=== PATIENT | female | born 1945 | race Caucasian/White ===

== ENCOUNTER 2022-09-17 09:16 | Outpatient (CLI) | payer MEDICARE, BC, SELFPAY ==
[2022-09-17 14:18] LABS: Chloride* 101 mmol/L (96-114); Potassium* 5.3 mmol/L (3.6-5.1); Sodium* 138 mmol/L (135-149)
[2022-09-17 14:20] LABS: Cholesterol* 171 mg/dL (90-199)
[2022-09-17 14:21] LABS: Blood Urea Nitrogen* 16 mg/dL (7-30); Carbon Dioxide* 27 mmol/L (20-32); Creatinine* 0.9 mg/dL (0.5-1.5); Estimated Glomerular Filt Rate 65 ml/min; Glucose* 84 mg/dL (60-115)
[2022-09-17 14:22] LABS: Calcium* 9.4 mg/dL (8.4-10.6); HDL Cholesterol* 44 mg/dL (>=50); LDL Cholesterol Calculated 96 mg/dL (<100); Triglycerides* 153 mg/dL (40-149)
== END 2022-09-17 09:17 | disposition home or self-care (01) ==
PROVIDERS: PCP Family Medicine; Visit Provider Family Medicine
DX: Z01.818 Encounter for other preprocedural examination (principal); E78.5 Hyperlipidemia, unspecified
CPT/HCPCS: 80048; 80061

== ENCOUNTER 2022-09-19 08:59 | Day surgery (SDC) | payer MEDICARE, BC, SELFPAY ==
--- NOTE | 2022-09-19 09:16 | SUR.PREOP ---
The eye drops brought by the patient (Ketorolac and Prednisolone) are examined and I have determined they are labeled by the patient's pharmacy for this patient as prescribed by the surgeon. The bottles are intact, recently obtained and appear to be correct.
--- NOTE | 2022-09-19 09:16 | SUR.PREOP ---
visualized patient's home covid test, results negative.
[2022-09-19] MEDS: KETOROLAC OPHTH 0.5% 1 DROP EYE-LEFT ×2 (09:17→09:21)
[2022-09-19] MEDS: TETRACAINE 0.5% OPHTH 1 DROP EYE-LEFT ×2 (09:18→09:22)
[2022-09-19] MEDS: SODIUM CHLORIDE 0.9 % (FLUSH) 10 ML SYRINGE IVF (09:25)
[2022-09-19 09:27] VITALS: BP 151/84; PULSE 79; RESP 18; TEMP 36.6; O2SAT 98; BMI 31.6
--- NOTE | 2022-09-19 11:06 | W.ANESCHARGE ---
Anesthesia Charges Start Date/Time Anesthesia Start Date: 09/19/22 Anesthesia Start Time: 10:50 Stop Date/Time Anesthesia Stop Date: 09/19/22 Anesthesia Stop Time: 11:33 Summary Emergency: No Extremes of Age: Over 70-CPT 28262
[2022-09-19] MEDS: TETRACAINE 0.5% OPHTH 2 DROP EYE-LEFT (11:12)
[2022-09-19] MEDS: BALANCED SALT IRRIG SOLN 15 ML EYE-LEFT (11:12)
[2022-09-19 11:30] VITALS: BP 132/82; PULSE 68; RESP 18; TEMP 36.4; O2SAT 97
--- NOTE | 2022-09-20 08:05 | W.PM.OPTPROC ---
Procedure Note Date of procedure: 09/19/22 Will [facility] bill your pro fee for this procedure?: Yes Procedure Description: SURGEON: Arianna Colindres MD PREOPERATIVE DIAGNOSIS: Nuclear sclerotic cataract, left eye. POSTOPERATIVE DIAGNOSIS: Nuclear sclerotic cataract, left eye. NAME OF OPERATION: Phacoemulsification of cataract with posterior chamber intraocular lens implantation in the left eye. ANESTHESIA: Topical. ESTIMATED BLOOD LOSS: Less than 2 cc. COMPLICATIONS: None. PATHOLOGY SPECIMEN: None. INDICATIONS: See consult note for details. The risks, benefits and alternatives of the procedure were explained to the patient, who elected to proceed and signed informed consent to do so. PROCEDURE: The patient was brought to the pre-holding area where the left eye was identified as the operative eye. I placed my initials above this eye. The patient received eye drops consisting of 0.5% tetracaine, 1% tropicamide, 10% phenylephrine, and 0.5% ketorolac. The patient was then brought to the operating room where the left eye was again identified as the operative eye. The eye was prepped with Betadine and draped in the usual sterile ophthalmic fashion. A #15 super-sharp blade was used to create a paracentesis site. 1% non-preserved intracameral lidocaine was injected into the anterior chamber. Endocoat was injected into the anterior chamber. A 2.4 mm keratome was used to create a three-plane self-sealing incision 1 mm anterior to the temporal limbus. A cystotome was used to create an anterior capsular leaflet. The Utrata forceps were used to extend this to form a continuous curvilinear capsulorrhexis. Hydrodissection was performed. The cataract was removed with phacoemulsification using the [id number]-[id number]-[id number] technique. The irrigation and aspiration tip was used to remove the remaining cortex. Healon was injected into the capsular bag. An TOM ZCB00 intraocular lens of 21.5 diopters was injected into the capsular bag. The irrigation and aspiration tip was used to remove the remaining viscoelastic. Balanced salt solution on a cannula was used to hydrate the wound, and the wound was found to be watertight. The pupil was noted to be round. DISPOSITION: The patient was taken to the recovery room and discharged to home in stable condition. The patient was instructed to call me or go to the emergency department with any sudden change, including dramatic loss of vision, severe pain in the eye or eyebrow region, nausea, or vomiting. The patient will follow up in the clinic tomorrow morning. Surgeon: Arianna Colindres MD
== END 2022-09-19 12:00 | disposition home or self-care (01) ==
PROVIDERS: PCP Family Medicine; Visit Provider Ophthalmology
PROC: (CPT 66984; principal; 2022-09-19 09:00)
DX: H25.12 Age-related nuclear cataract, left eye (principal)
CPT/HCPCS: 66984; 00142; 99100; A9270; J2250; J3010; V2632

== ENCOUNTER 2022-10-10 09:02 | Day surgery (SDC) | payer MEDICARE, BC, SELFPAY ==
[2022-10-10] MEDS: KETOROLAC OPHTH 0.5% 1 DROP EYE-RIGHT ×2 (09:05→09:10)
[2022-10-10] MEDS: TETRACAINE 0.5% OPHTH 1 DROP EYE-RIGHT ×2 (09:05→09:10)
[2022-10-10 09:17] VITALS: BP 159/89; PULSE 73; RESP 16; TEMP 36.3; O2SAT 97
[2022-10-10 09:19] VITALS: BMI 31.5
[2022-10-10] MEDS: SODIUM CHLORIDE 0.9 % (FLUSH) 10 ML SYRINGE IVF (09:30)
--- NOTE | 2022-10-10 09:36 | SUR.PREOP ---
HOME COVID ANTIGEN TEST NEGATIVE, DONE 10/09/22.
--- NOTE | 2022-10-10 10:16 | W.ANESCHARGE ---
Anesthesia Charges Start Date/Time Anesthesia Start Date: 10/10/22 Anesthesia Start Time: 10:15 Stop Date/Time Anesthesia Stop Date: 10/10/22 Anesthesia Stop Time: 10:50 Summary Emergency: No Extremes of Age: Over 68-CPT 50786
[2022-10-10] MEDS: TETRACAINE 0.5% OPHTH 2 DROP EYE-RIGHT (10:22)
--- NOTE | 2022-10-10 10:25 | W.ANESCHARGE ---
Anesthesia Charges Start Date/Time Anesthesia Start Date: 10/10/22 Anesthesia Start Time: 10:15 Stop Date/Time Anesthesia Stop Date: 10/10/22 Anesthesia Stop Time: 10:50 Summary Emergency: No Extremes of Age: Over 68-CPT 00420
[2022-10-10] MEDS: BALANCED SALT IRRIG SOLN 15 ML EYE-RIGHT (10:26)
[2022-10-10 10:48] VITALS: BP 172/89; PULSE 69; RESP 16; O2SAT 98
--- NOTE | 2022-10-10 13:32 | P.OPTPRC_ITS ---
Procedure Note Date of procedure: 10/10/22 Will [facility] bill your pro fee for this procedure?: Yes Procedure Description: SURGEON: Arianna Colindres MD PREOPERATIVE DIAGNOSIS: Nuclear sclerotic cataract, right eye. POSTOPERATIVE DIAGNOSIS: Nuclear sclerotic cataract, right eye. NAME OF OPERATION: Phacoemulsification of cataract with posterior chamber intraocular lens implantation in the right eye. ANESTHESIA: Topical. ESTIMATED BLOOD LOSS: Less than 2 cc. COMPLICATIONS: None. PATHOLOGY SPECIMEN: None. INDICATIONS: See consult note for details. The risks, benefits and alternatives of the procedure were explained to the patient, who elected to proceed and s igned informed consent to do so. PROCEDURE: The patient was brought to the pre-holding area where the right eye was identified as the operative eye. I placed my initials above this eye. The patient received eye drops consisting of 0.5% tetracaine, 1% tropicamide, 10% phenylephrine, and 0.5% ketorolac. The patient was then brought to the operating room where the right eye was again identified as the operative eye. The eye was prepped with Betadine and draped in the usual sterile ophthalmic fashion. A #15 super-sharp blade was used to create a paracentesis site. 1% non-preserved intracameral lidocaine was injected into the anterior chamber. Endocoat was injected into the anterior chamber. A 2.4 mm keratome was used to create a three-plane self-sealing incision 1 mm anterior to the temporal limbus. A cystotome was used to create an anterior capsular leaflet. The Utrata forceps were used to extend this to form a continuous curvilinear capsulorrhexis. Hydrodissection was performed. The cataract was removed with phacoemulsification using the [id number] technique. The irrigation and aspiration tip was used to remove the remaining cortex. Healon was injected into the capsular bag. An TOM ZCB00 intraocular lens of 21.0 diopters was injected into the capsular bag. The irrigation and aspiration tip was used to remove the remaining viscoelastic. Balanced salt solution on a cannula was used to hydrate the wound, and the wound was found to be watertight. The pupil was noted to be round. DISPOSITION: The patient was taken to the recovery room and discharged to home in stable condition. The patient was instructed to call me or go to the emergency department with any sudden change, including dramatic loss of vision, severe pain in the eye or eyebrow region, nausea, or vomiting. The patient will follow up in the clinic tomorrow morning. Surgeon: Arianna Colindres MD
== END 2022-10-10 11:25 | disposition home or self-care (01) ==
PROVIDERS: PCP Family Medicine; Visit Provider Ophthalmology
PROC: (CPT 66984; principal; 2022-10-10 09:00)
DX: H25.11 Age-related nuclear cataract, right eye (principal)
CPT/HCPCS: 66984; 00142; 99100; A9270; J2250; J3010; V2632

== ENCOUNTER 2023-09-27 08:41 | Outpatient (CLI) | payer MEDICARE, BC, SELFPAY | END 2023-09-27 08:42 | disposition home or self-care (01) | PROVIDERS: PCP Family Medicine; Visit Provider Family Medicine | DX: Z00.00 Encounter for general adult medical examination without abnormal findings (principal); I10 Essential (primary) hypertension; E78.5 Hyperlipidemia, unspecified; R13.10 Dysphagia, unspecified; Z13.29 Encounter for screening for other suspected endocrine disorder | CPT/HCPCS: 80061; 84439; 84443 ==

== ENCOUNTER 2023-10-15 08:45 | Outpatient (CLI) | payer MEDICARE, BC, SELFPAY | END 2023-10-15 08:46 | disposition home or self-care (01) | LOC: CT 08:46 | PROVIDERS: PCP Family Medicine; Visit Provider Orthopaedic Surgery Sports Medicine | DX: M19.012 Primary osteoarthritis, left shoulder (principal); M75.102 Unspecified rotator cuff tear or rupture of left shoulder, not specified as traumatic; M12.812 Other specific arthropathies, not elsewhere classified, left shoulder; Z01.818 Encounter for other preprocedural examination | CPT/HCPCS: 73200 ==

== ENCOUNTER 2023-11-18 08:29 | Day surgery (SDC) | payer MEDICARE, BC, SELFPAY ==
[2023-11-18] VITALS (23 sets, daily range): BP systolic 119–149; BP diastolic 64–98; PULSE 60–78; RESP 13–20; TEMP 36.2–36.6; O2SAT 92–97; BMI 33.0
[2023-11-18] MEDS: ACETAMINOPHEN 500 MG TABLET 1000 MG PO ×3 (07:45→20:05)
[2023-11-18] MEDS: SODIUM CHLORIDE 0.9 % (FLUSH) 10 ML SYRINGE IVF (09:15)
[2023-11-18] MEDS: LACTATED RINGERS 1000 ML 1,000 ML 100 ML IV ×2 (09:20→10:28)
[2023-11-18] MEDS: OXYCODONE (CR) 10 MG TAB.ER.12H PO (09:30)
[2023-11-18] MEDS: fentaNYL 100 MCG/2 ML inj IVP (09:32)
[2023-11-18] MEDS: MIDAZOLAM HCL 1 MG/ML inj IVP (09:32)
--- NOTE | 2023-11-18 09:42 | SUR.PREOP ---
TIME?OUT:?929, left shoulder PT/RN/MDA?VERIFICATION?OF?SURGICAL?SITE,?PROCEDURE,?AND?CONSENT OBTAINED?PRIOR?TO?INVASIVE?PROCEDURE.
--- NOTE | 2023-11-18 10:20 | CRLHL7_ITS ---
For Patients: As a result of the Cures Act, medical imaging exams and procedure reports are released immediately into your electronic medical record. You may view this report before your referring provider. If you have questions, please contact your health care provider. INDICATION: Left shoulder arthroplasty. Follow-up. TECHNIQUE: Two portable postoperative images of the left shoulder. FINDINGS: Left shoulder arthroplasty. The components are adequately aligned and well seated. Air within the soft tissues and joint space related to the surgery. IMPRESSION: Left total shoulder arthroplasty. The components are adequately aligned and well seated. Dictated by Guy Rosa MD @ 11/19/2023 10:37:06 AM (Electronically Signed)
[2023-11-18] MEDS: CEFAZOLIN 2 GM in 0.9 % SODIUM CHLORIDE Mini-bag 100 ML IVPB ×2 (10:28→16:39)
[2023-11-18] MEDS: TRANEXAMIC ACID 100 MG/ML INJ 1000 MG IV (10:28)
--- NOTE | 2023-11-18 12:03 | PM.ORPRC ---
Procedure Note Date of procedure: 11/18/23 Procedure: PREOPERATIVE DIAGNOSIS: 1. Left shoulder osteoarthrosis, primary, severe with poor rotator quality/integrity 2. Left long head of the biceps tendinopathy and tenosynovitis POSTOPERATIVE DIAGNOSIS: 1. Left shoulder osteoarthrosis,[ primary, severe with poor cuff tissue quality 2. Left long head of the biceps tendinopathy and tenosynovitis PROCEDURE: 1. Left reverse shoulder arthroplasty. 2. Left long head of biceps open tenodesis SURGEON: Kosta Cam MD. LANDSCAPING SPECIALIST: Wilfredo ASH - Of note, a skilled medical administrative assistant was critical for this case to aid in patient positioning, tissue retraction, limb manipulation/positioning, retraction for glenoid exposure, which was challenging, awareness and protection of critical structures, and closure. ANESTHESIA: General plus supraclavicular block EBL: 150 ml IMPLANTS: DJ0 surgical Altivate humeral stem size 8 small shell, short with P2 porous coating vitamin E neutral poly small socket insert RSP glenoid base plate P2 porous coating with 3 perimeter locking screws 32 neutral glenosphere with retaining screw COMPLICATIONS: None evident INDICATIONS: The patient is a pleasant 78-year-old female who has experienced severe left shoulder pain and difficulty with use. Workup included imaging which revealed severe osteoarthrosis along with concern for rotator cuff quality. Physical exam was consistent with associated pain. Given the deformity, the dysfunction, and the pain, and failure of nonoperative management, recommendation was made for surgery. DESCRIPTION OF PROCEDURE: Following a thorough discussion of risks, benefits, and alternatives, consent was obtained and the left shoulder was marked. The patient was brought to the operating room and placed supine on the operating table. Induction of anesthesia was undertaken. 2 g IV Ancef and 1 g tranexamic acid was administered within 1 hr of incision preoperatively. Appropriate time-out was performed identifying proper patient, site, and procedure. The operative extremity was prepped and draped in the appropriate sterile fashion using ChloraPrep after the patient was positioned in the lazy beach chair position with head in neutral alignment and all bony prominences well padded. A longitudinal incision was made for deltopectoral approach. Deltoid was retracted laterally. Cephalic vein was identified and retracted laterally as well. Vein was spared/protected throughout the case. The clavipectoral fascia was identified and divided longitudinally staying lateral to the conjoined tendon / coracoid. The conjoined tendon was protected with a blunt Hohmann. The long head of the biceps tendon was identified and the bicipital sheath released. The upper 1/4 of the pectoralis major was also released from its insertion. The long head of the biceps was tenodesed to the pectoralis major tendon. The remaining proximal tendon tissue was excised. The rotator cuff was inspected and found to have good integrity with the subscapularis but fair integrity with a supraspinatus], and a decision for a reverse shoulder arthroplasty was confirmed. The long head of biceps, of note, was significant flattened, thickened, with abundant tenosynovitis. A subscapularis cuff of tissue was left via tenotomy for later repair with the remaining subscapularis released in a subperiosteal fashion with the Bovie. This was tagged for later repair. The 3 sisters were cauterized. The upper subscapularis was released from the capsule with a curved Hogan scissors towards the glenoid. The inferior subscapularis was divided from the capsular tissue on its caudal surface with particular caution for the axillary nerve. This was palpated anterior to the subscapularis both prior to and near the finish of the case. Inferior humeral head osteophytes were excised with caution taken throughout the case with regards to the axillary nerve. The humerus was dislocated, and humeral head cut completed. Then a protector plate was applied. We turned our attention to the glenoid. The humerus was retracted posteriorly. The subscap was protected anteriorly and the labrum/long head biceps origin was excised circumferentially. The capsule was released along the anterior and inferior portions of the glenoid cautiously with a Lambert elevator being careful not to penetrate deep. The glenoid had appropriate exposure, and was prepared with the cannulated system with a target of approximately 5-10? of inferior tilt and neutral anteversion (patient had 17 ? of retroversion initially). [Utilizing the match Point 3D printed guide, the guide pin was placed. The 3D printed jig removed and after placing the guide pin, the tap was placed followed by the glenoid reaming. The real base plate was opened, and inserted, and excellent compression/purchase was achieved with the central screw. Peripheral screws were then drilled, measured, and placed. The glenosphere was then placed consistent with the preoperative plan utilizing the above noted glenosphere. After securing the glenosphere with the locking, torque limited screw, attention was turned back to the humerus. A canal finder was placed followed by various reamers by hand. The real humeral stem was then opened and inserted with excellent metaphyseal fit and stability. Trial poly was placed and the shoulder reduced. Excellent reduction and stability achieved with appropriate tension on the conjoined tendon. At this stage, trial implants were removed, and the real implants inserted and the shoulder reduced. A 3 minute Betadine soak was performed followed by a thorough irrigation with normal saline. Subscapularis was repaired with #1 PDS to the cuff of tissue on the lesser tuberosity. Excellent reapproximation of tissue achieved. Hemostasis was found to be appropriate. The deltopectoral interval was reapproximated with 0 Vicryl, subcutaneous and subcuticular closure was then performed with number 2-0 Vicryl and 4-0 Monocryl, respectively. A skilled medical administrative assistant was critical for this case to aid in patient positioning, tissue retraction, limb manipulation/positioning, retraction for glenoid exposure, which was challenging, awareness and protection of critical structures, and closure. PLAN: 1. Sling at all times for the operative upper extremity. 2. AROM of elbow, forearm, wrist, and digits as tolerated. 3. PT/OT consults for education and assistance. 4. Social consult for discharge planning. 5. 23 hr perioperative antibiotics. 6. Early ambulation, and SCDs for DVT prophylaxis. 7. Admit to the hospital for the above 8. Analgesics p.r.n.
--- NOTE | 2023-11-18 12:05 | W.PM.H&PU ---
History & Physical Update History & Physical Update H&P Reviewed and patient assessed: No changes noted
--- NOTE | 2023-11-18 12:28 | P.NB_ITS ---
Nerve Block Nerve Block Time Seen by Provider: 09:37 Date Seen: 11/18/23 Type of block requested by surgeon for post-operative analgesia: supraclavicular Side: left Time out performed: Yes Verification of patient name: Yes Verification of date of : Yes Site marking: site marked Name of person performing procedure: Coy Continuous monitoring Was continuous monitoring of O2 sat, B/P, mobile marketing manager, recorded every 15 minutes?: Yes Procedure Checklist: sterile prep, needles and gloves Ultrasound guided. Images saved: Yes Medications given in 5ml increments after negative aspiration: Ropivicaine %: 0.5 mL: 20 Needle gauge: 22 Decadron (mg): 10 Precedex (mcg): 25 Patient tolerated procedure well: Yes Block Charges Block Charge (with Pro Fee): Brachial Plexus Use of Ultrasound Machine for Block: Yes- US Guidance/pain block
--- NOTE | 2023-11-18 12:28 | W.ANESCHARGE ---
Anesthesia Charges Start Date/Time Anesthesia Start Date: 11/18/23 Anesthesia Start Time: 10:07 Stop Date/Time Anesthesia Stop Date: 11/18/23 Anesthesia Stop Time: 12:24 Summary Extremes of Age - Over 70 or under 1: MDA
--- NOTE | 2023-11-18 13:05 | W.ANESCHARGE ---
Anesthesia Charges Start Date/Time Anesthesia Start Date: 11/18/23 Anesthesia Start Time: 10:07 Stop Date/Time Anesthesia Stop Date: 11/18/23 Anesthesia Stop Time: 12:24
[2023-11-18] MEDS: LACTATED RINGERS 1000 ML 1,000 ML 75 ML IV (14:15)
[2023-11-18] MEDS: FLECAINIDE 100 MG PO (15:45)
--- NOTE | 2023-11-18 16:36 | P.IMCN_ITS ---
Date of Consult Patient: [facility] Patient Consult date: 11/18/23 Requesting Physician: Orthopedics Primary Care Provider: Andi Echevarria MD Consult Narrative Narrative: Jina Garcia is a 78 year old female seen for management of medical problems following left shoulder arthroplasty. Procedure performed by Dr. Cam today. No operative complications. Patient has hypertension and history of recurrent atrial fibrillation. Postoperatively she reports doing well. No concerns. She denies nausea, significant pain, dyspnea. Preoperatively she reports he was generally doing well with no recent illness and no perioperative concerns identified on preop physical. She took non of her routine medications this morning. She has held her aspirin and meloxicam for 10 days. Review of Systems Narrative: No recent health concerns, illness or injury. [facility] Medical History (Updated 11/18/23 @ 16:50 by Ankit Robertson MD) Stapleton-Walker grade 4 cystocele ?N81.10 - Cystocele, unspecified (ICD-10) Left rotator cuff tear arthropathy ?M75.102 - Unspecified rotator cuff tear or rupture of left shoulder, not specified as traumatic (ICD-10) ?M12.812 - Other specific arthropathies, not elsewhere classified, left shoulder (ICD-10) Osteoarthritis of right shoulder ?M19.011 - Primary osteoarthritis, right shoulder (ICD-10) Osteoarthritis of left shoulder ?M19.012 - Primary osteoarthritis, left shoulder (ICD-10) Degenerative disc disease, cervical ?M50.30 - Other cervical disc degeneration, unspecified cervical region (ICD- 10) Neuropathy ?G62.9 - Polyneuropathy, unspecified (ICD-10) Hypertension ?I10 - Essential (primary) hypertension (ICD-10) Hyperlipidemia (08/15/09) ?E78.5 - Hyperlipidemia, unspecified (ICD-10) History of atrial fibrillation ?Z86.79 - Personal history of other diseases of the circulatory system (ICD- 10) Hearing loss ?H91.90 - Unspecified hearing loss, unspecified ear (ICD-10) History of thyroiditis (08/15/09) ?Z86.39 - Personal history of other endocrine, nutritional and metabolic disease (ICD-10) Surgical History (Updated 11/18/23 @ 16:50 by Ankit Robertson MD) History of arthroplasty of left shoulder ?Z96.612 - Presence of left artificial shoulder joint (ICD-10) History of bilateral cataract extraction (~09/2022) ?Z98.41 - Cataract extraction status, right eye (ICD-10) ?Z98.42 - Cataract extraction status, left eye (ICD-10) History of tonsillectomy and adenoidectomy (~1952) ?Z90.89 - Acquired absence of other organs (ICD-10) History of radiofrequency ablation (RFA) procedure for cardiac arrhythmia (08/15/09) ?Z98.890 - Other specified postprocedural states (ICD-10) History of hysterectomy (~1972) ?Z90.710 - Acquired absence of both cervix and uterus (ICD-10) History of cholecystectomy (~1995) ?Z90.49 - Acquired absence of other specified parts of digestive tract (ICD- 10) Family History Unknown Diabetes Social History Narrative: Cis-gender, heterosexual woman Relationship status: . Spouse/Partner: Earl Education: Some college Occupation: Retired Tobacco: Never smoker E-cigarettes: No Alcohol: No Illicit/recreational drugs: No Safety concerns at home or work: No Dietary restriction(s): None Exercise: No. What is your current living situation?: I presently have a place to live Problems where you live: no known problems In the past 12 months, utilities in danger of being shut off: no In past 12 months, lack of transportation kept you from medical appts, meetings, work, or getting things needed for daily living: no In the past 12 mos, have been you worried that your food would run out before you had money to buy more?: never true In the past 12 mos, the food you bought just didn't last and you didn't have money to buy more?: never true Highest level of school completed/degree received: decline to answer Smoking Status: Never smoker Do you use any of these nicotine containing products: None How often do you have a drink containing alcohol: never AUDIT-C Alcohol total score: 0 Non-prescribed substance use: denies use Caffeine: Yes (TEA) How often does anyone, including family, friends and others, physically hurt you : never How often does anyone, including family, friends and others, insult or talk down to you: never How often does anyone, including family, friends and others, threaten you with harm: never How often does anyone, including family, friends and others, scream or curse at you: never Little interest or pleasure in doing things: not at all Feeling down, depressed, or hopeless: not at all Are you using contraception or practicing any form of control: No Meds Home Medications and Allergies Home Medications Medication Instructions Recorded Confirmed Type aspirin 81 mg tablet,delayed 81 mg PO DAILY 09/17/22 11/18/23 History release flecainide 100 mg tablet 50 - 100 mg PO BID 09/17/22 11/18/23 History losartan 50 mg-hydrochlorothiazide 1 tab PO DAILY 11/18/23 11/18/23 History 12.5 mg tablet meloxicam 15 mg tablet 15 mg PO DAILY 11/18/23 11/18/23 History simvastatin 40 mg tablet 40 mg PO HS 11/18/23 11/18/23 History Allergies Allergy/AdvReac Type Severity Reaction Status Date / Time No Known Allergies Allergy Unknown Unknown Verified 11/06/23 10:26 Exam Narrative: Exam Narrative: She is alert and appears in no distress. Oropharynx is normal. Neck is supple without mass or adenopathy. Respirations are clear and symmetric. Cardiovascular: S1, S2, regular rate and rhythm. Abdomen is soft without tenderness or mass. Extremities without edema. Left upper extremity has diminished but intact sensation good pulses good capillary refill and some movement in the fingers of her left hand. Other extremities have intact pulses sensation and motion. Const: Vital Signs, click to edit/add: Vital Signs - 24 hr 11/18/23 08:52 11/18/23 09:30 11/18/23 09:40 Temperature 97.1 F L Pulse Rate 77 70 65 Pulse Rate [Left P ulse Oximeter] Respiratory Rate 20 20 16 Blood Pressure 149/98 H 149/78 H 124/69 Blood Pressure [Ri ght Arm] Pulse Oximetry 96 95 96 Oxygen Delivery Me thod Room Air Nasal Cannula Room Air Oxygen Flow Rate 3 11/18/23 12:25 11/18/23 12:30 11/18/23 12:35 Temperature 97.2 F L Pulse Rate 66 65 63 Pulse Rate [Left P ulse Oximeter] Respiratory Rate 16 16 16 Blood Pressure 127/72 127/73 121/70 Blood Pressure [Ri ght Arm] Pulse Oximetry 92 93 94 Oxygen Delivery Me thod Room Air Room Air Room Air Oxygen Flow Rate 11/18/23 12:40 11/18/23 12:45 11/18/23 12:50 Temperature 97.8 F Pulse Rate 61 62 60 Pulse Rate [Left P ulse Oximeter] Respiratory Rate 16 16 16 Blood Pressure 123/69 119/69 119/71 Blood Pressure [Ri ght Arm] Pulse Oximetry 96 97 96 Oxygen Delivery Me thod Room Air Room Air Room Air Oxygen Flow Rate 11/18/23 12:55 11/18/23 13:05 11/18/23 13:06 Temperature 97.7 F 97.7 F Pulse Rate 61 61 Pulse Rate [Left P ulse Oximeter] 61 Respiratory Rate 16 13 13 Blood Pressure 121/70 Blood Pressure [Ri ght Arm] 132/73 132/73 Pulse Oximetry 95 94 Oxygen Delivery Me thod Room Air Room Air Room Air Oxygen Flow Rate 11/18/23 13:15 11/18/23 13:30 11/18/23 13:45 Temperature 97.5 F L 97.5 F L 97.3 F L Pulse Rate Pulse Rate [Left P ulse Oximeter] 63 63 63 Respiratory Rate 13 14 16 Blood Pressure Blood Pressure [Ri ght Arm] 129/75 124/70 121/66 Pulse Oximetry 96 96 97 Oxygen Delivery Me thod Room Air Room Air Room Air Oxygen Flow Rate 11/18/23 14:00 11/18/23 14:30 11/18/23 15:00 Temperature 97.5 F L Pulse Rate Pulse Rate [Left P ulse Oximeter] 65 69 70 Respiratory Rate 16 16 16 Blood Pressure Blood Pressure [Ri ght Arm] 144/81 H 137/64 127/82 Pulse Oximetry 95 96 96 Oxygen Delivery Me thod Room Air Room Air Oxygen Flow Rate 11/18/23 15:00 Temperature Pulse Rate Pulse Rate [Left P ulse Oximeter] 73 Respiratory Rate 16 Blood Pressure Blood Pressure [Ri ght Arm] Pulse Oximetry Oxygen Delivery Me thod Oxygen Flow Rate Documenting provider has reviewed patient's vital signs: yes Assessment and Plan Assessment and plan (1) History of arthroplasty of left shoulder: Problem comment: No immediate postoperative complications. Routine pain management and therapy Status: Acute (2) History of atrial fibrillation: Problem comment: s/p Ablation attempts 2005, 2009, 2017, now on flecainide to control rhythm. Resume flecainide Status: Acute (3) Hypertension: Problem comment: Resume blood pressure medicines Status: Acute Plan Routine postoperative care. Resume medications for rhythm control and blood pressure control. Total time spent is 40 minutes
[2023-11-18] MEDS: 0.9 % SODIUM CHLORIDE 500 ML IV (18:09)
--- NOTE | 2023-11-18 18:48 | PC.NURSE ---
End of shift 8312-2299: Pt A&O x4, VSS and afebrile this afternoon. Ambulates in room SBA. Left arm sling in place, anterior surgical dressing is C/D/I. CMS in LUE remarkable for numbness in thumb and index finger, radial pulse present, skin warm & pink. Pt denies having any pain yet. PIV in right wrist infusing LR @ 75 mL/hr and currently receiving 500 mL NaCl bolus d/t oliguria. Pt attempted to void once with no success. Only c/o is having an air bubble in her throat, encouraged IS use- reading at 1000 on inspiration with good tolerance. Pt has bilateral LE neuropathy baseline, TEDs in place. Tolerating PO intake with no nausea. Denies dizziness with ambulation.
[2023-11-18] MEDS: SENNOSIDES 1 TAB TABLET 2 TAB PO (22:11)
[2023-11-18] MEDS: SIMVASTATIN 40 MG TABLET PO (22:11)
[2023-11-19] MEDS: CEFAZOLIN 2 GM in 0.9 % SODIUM CHLORIDE Mini-bag 100 ML IVPB ×2 (01:06→07:40)
[2023-11-19] MEDS: ACETAMINOPHEN 500 MG TABLET 1000 MG PO ×2 (01:06→08:05)
[2023-11-19 02:17] VITALS: BP 136/72; PULSE 73; RESP 18; TEMP 36.7; O2SAT 95
--- NOTE | 2023-11-19 05:03 | PC.NURSE ---
[id number]: Patient pleasant and cooperative. CMS intact. Dressing to L. shoulder C/D/I. Cryo cuff and sling to L. shoulder. SBA. Denies pain. Denies N/V. Eating and voiding.
[2023-11-19 06:30] LABS: Hematocrit 32.2 % (33.0-51.0); Hemoglobin* 10.9 gm/dL (12.0-16.0); Mean Corpuscular HGB Conc 34 gm/dL (32-36); Mean Corpuscular Hemoglobin 29 pg (26-34); Mean Corpuscular Volume 85 fL (80-100); Platelet Count* 335 K/uL (140-440); Red Blood Count 3.77 m/uL (4.00-5.20); White Blood Count* 17.05 K/uL (4.50-11.00)
[2023-11-19 06:31] LABS: Slide Review Reflex No
[2023-11-19 06:43] LABS: Potassium* 3.7 mmol/L (3.6-5.1); Sodium* 131 mmol/L (135-149)
[2023-11-19 06:46] LABS: Blood Urea Nitrogen* 16 mg/dL (7-30); Creatinine* 0.7 mg/dL (0.5-1.5); Est. Creatinine Clearance* 33.86; Estimated Glomerular Filt Rate 87 ml/min
[2023-11-19 07:00] VITALS: BP 145/78; PULSE 76; RESP 16; TEMP 36.6; O2SAT 96
[2023-11-19] MEDS: ASPIRIN 81 MG TABLET EC PO (07:40)
[2023-11-19] MEDS: hydroCHLOROthiazide 12.5 MG CAPSULE PO (07:40)
[2023-11-19] MEDS: LOSARTAN POTASSIUM 50 MG TABLET PO (07:40)
[2023-11-19] MEDS: FLECAINIDE 100 MG PO (07:41)
--- NOTE | 2023-11-19 08:35 | PM.ORPN ---
Subjective Subjective Date Seen: 11/19/23 Principal diagnosis: Status postop day 1 left reverse total shoulder arthroplasty Interval history: Patient reports doing well. No acute events over night. Complains of left thumb and index sluggish to wake up compared to the other 3 digits, and slightly warm. No pain at this time ice; supraclavicular nerve block still effective. Applying ice to the shoulder. DVT prophylaxis: Bilateral knee high Hong stockings, SCDs, walking. Denies fevers, chills, aches, N/V, CP, SOB/MURO, or lightheadedness. Reports no passing flatus. Ortho Exam Narrative Exam Narrative: -Patient appears comfortable in recliner; no apparent acute distress -Alert and oriented times 3 -Operative shoulder swollen; soft, supple tissues; no obvious erythema. Ecchymosis minimal. Warmth appropriate -Surgical dressing clean, dry, intact; no obvious drainage, no erythematous streaking peripheral to the bandage -Bilateral calves soft and supple; no significant swelling, edema, tenderness, erythema, discoloration, warmth, or palpable cords -2+ radial pulse, intact dermatomes and myotomes distally (5/5 strength); intact x-ray nerve sensation. Weak shoulder abduction strength Const Vital Signs, click to edit/add: Vital Signs - 24 hr 11/18/23 08:52 11/18/23 09:30 11/18/23 09:40 Temperature 97.1 F L Pulse Rate 77 70 65 Pulse Rate [Left Pulse Oximeter] Respiratory Rate 20 20 16 Blood Pressure 149/98 H 149/78 H 124/69 Blood Pressure [Right Arm] Pulse Oximetry 96 95 96 Oxygen Delivery Method Room Air Nasal Cannula Room Air Oxygen Flow Rate 3 11/18/23 12:25 11/18/23 12:30 11/18/23 12:35 Temperature 97.2 F L Pulse Rate 66 65 63 Pulse Rate [Left Pulse Oximeter] Respiratory Rate 16 16 16 Blood Pressure 127/72 127/73 121/70 Blood Pressure [Right Arm] Pulse Oximetry 92 93 94 Oxygen Delivery Method Room Air Room Air Room Air Oxygen Flow Rate 11/18/23 12:40 11/18/23 12:45 11/18/23 12:50 Temperature 97.8 F Pulse Rate 61 62 60 Pulse Rate [Left Pulse Oximeter] Respiratory Rate 16 16 16 Blood Pressure 123/69 119/69 119/71 Blood Pressure [Right Arm] Pulse Oximetry 96 97 96 Oxygen Delivery Method Room Air Room Air Room Air Oxygen Flow Rate 11/18/23 12:55 11/18/23 13:05 11/18/23 13:06 Temperature 97.7 F 97.7 F Pulse Rate 61 61 Pulse Rate [Left Pulse Oximeter] 61 Respiratory Rate 16 13 13 Blood Pressure 121/70 Blood Pressure [Right Arm] 132/73 132/73 Pulse Oximetry 95 94 Oxygen Delivery Method Room Air Room Air Room Air Oxygen Flow Rate 11/18/23 13:15 11/18/23 13:30 11/18/23 13:45 Temperature 97.5 F L 97.5 F L 97.3 F L Pulse Rate Pulse Rate [Left Pulse Oximeter] 63 63 63 Respiratory Rate 13 14 16 Blood Pressure Blood Pressure [Right Arm] 129/75 124/70 121/66 Pulse Oximetry 96 96 97 Oxygen Delivery Method Room Air Room Air Room Air Oxygen Flow Rate 11/18/23 14:00 11/18/23 14:30 11/18/23 15:00 Temperature 97.5 F L Pulse Rate Pulse Rate [Left Pulse Oximeter] 65 69 70 Respiratory Rate 16 16 16 Blood Pressure Blood Pressure [Right Arm] 144/81 H 137/64 127/82 Pulse Oximetry 95 96 96 Oxygen Delivery Method Room Air Room Air Oxygen Flow Rate 11/18/23 15:00 11/18/23 16:00 11/18/23 17:00 Temperature 97.6 F 97.4 F L Pulse Rate Pulse Rate [Left Pulse Oximeter] 73 73 75 Respiratory Rate 16 16 16 Blood Pressure Blood Pressure [Right Arm] 123/70 129/74 Pulse Oximetry 96 95 Oxygen Delivery Method Room Air Room Air Oxygen Flow Rate 11/18/23 18:00 11/18/23 20:15 11/18/23 23:09 Temperature 97.3 F L 97.8 F 97.5 F L Pulse Rate Pulse Rate [Left Pulse Oximeter] 75 78 78 Respiratory Rate 16 18 18 Blood Pressure Blood Pressure [Right Arm] 120/68 120/68 138/78 Pulse Oximetry 95 96 96 Oxygen Delivery Method Room Air Room Air Room Air Oxygen Flow Rate 11/19/23 02:17 Temperature 98.1 F Pulse Rate Pulse Rate [Left Pulse Oximeter] 73 Respiratory Rate 18 Blood Pressure Blood Pressure [Right Arm] 136/72 Pulse Oximetry 95 Oxygen Delivery Method Room Air Oxygen Flow Rate Assessment and Plan Assessment and plan (1) History of arthroplasty of left shoulder: Problem details: Status postop day 1 left reverse total shoulder arthroplasty and open long head biceps tenodesis (11/18/23) Status: Acute (2) History of atrial fibrillation: Problem details: s/p Ablation attempts 2004, 2008, 2017, now on flecainide to control rhythm. Resume flecainide Status: Acute (3) Hypertension: Problem details: Resume blood pressure medicines Status: Acute Plan - Complete 23 hour perioperative antibiotics. - PT/OT consult for education and assistance. - Social work consult for discharge planning - Prescribed analgesics as needed - DVT prophylaxis: Bilateral knee high Hong Hose stockings and SCDs - Anticipation is for discharge to home with spouse 11/19/2023 if the patient remains medically stable, pain is controlled, and they are safe with mobilization.
--- NOTE | 2023-11-19 11:27 | PC.NURSE ---
Discharge - Pt alert, oriented, cooperative. Tolerating RA, regular diet, regular fluids. Pt denies pain, SOB, dizziness. Standby assistance to bathroom, ambulating. IV removed with catheter intact. Discharge education provided, paperwork signed. Pt discharged to home with spouse at approximately 1115.
== END 2023-11-19 11:15 | disposition home or self-care (01) ==
LOC: OR 08:30 → MEDSURG 08:33
PROVIDERS: PCP Family Medicine; Visit Provider Orthopaedic Surgery Sports Medicine
PROC: 0RRJ0JZ Replacement of Right Shoulder Joint with Synthetic Substitute, Open Approach (ICD-10-PCS; CPT 23472; principal; 2023-11-18 10:00)
DX: M19.012 Primary osteoarthritis, left shoulder (principal); M75.22 Bicipital tendinitis, left shoulder; G89.18 Other acute postprocedural pain; I10 Essential (primary) hypertension; I48.91 Unspecified atrial fibrillation
CPT/HCPCS: 23472; 23430; 01638; 36415; 64415; 73030; 76942; 82565; 84132; 84295; 84520; 85027; 97161; 97165; 99100; A9270; C1713; C1776; J0330; J0690; J1100; J2250; J2405; J2704; J2710; J2795; J3010; J7030; J7120

== ENCOUNTER 2024-01-22 13:00 | Outpatient (RCR) | payer MEDICARE, BC, SELFPAY ==
--- NOTE | 2023-12-02 10:26 | PT.OPEX ---
PT [facility] Eval PT [facility] Outpatient Eval Start: 12/02/23 08:57 Freq: Status: Active Protocol: Document 12/02/23 08:57 JESSICA (Rec: 12/02/23 10:20 JESSICA [id number]) E-signed By Betty Blanco PT Physical Therapy Outpatient Evaluation Insurance Information Recert Due Date 02/29/24 Insurance Name Medicare B Medical Diagnosis LEFT SHOULDER OA M19.012 S/P LEFT TSA (11/18/23) Treating Diagnosis LEFT SHOULDER PAIN M25.512 WEAKNESS R53.1 Referring MD ODELL Subjective Subjective PATIENT REPORTS VIRTUALLY NO PAIN SINCE HER SHOULDER AND HAS TAKEN, AT MOST, TYLENOL. SHE REPORTS NO SIGNIFICANT PAIN IN HER LEFT SHOULDER UNTIL ROUGHL[facility] FEBRUARY OF LAST YEAR. SHE STATES,I THOUGHT MY RIGHT SHOULDER WAS WORSE BUT THEY ARE BOTH BONE ON BONE AND MY LEFT SEEMED TO FLARE UP WHILE MY RIGHT CALMED DOWN. SHE HAS BEEN PERFORMING HER PENDULUMS INSTRUCTED AND PROPPING HER ARM UP WHEN SEATED TO AVOID SHOULDER EXT. 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 Preferred Name CARMINA Precautions Treatment Precautions/Contraindications 12/02/23: NO WB, NO LIFTING, NO USE OF LUE, NO REACHING BEHIND BACK Weight Bearing Status Non-Weight Bearing Therapy Limitations/Systems Review Hearing Objective Other/Pertinent Objective CERVICAL ROM: WFL LEFT SHOULDER PROM: S'FLEX 100 S'ABD 86 S'ER 15 AT 45 DEGREES ABD/ SCAPTION OBSERVATION: INCISION IS PRISTINE, ABSENT OF S/S OF INFECTION, MIN ECCHYMOSIS JOINT PALPATION/MOBILITY: MIN TENDERNESS TO TOUCH ABOUT THE INCISION, MOD JOINT HYPOMOBILITY TX: PENDULUM: FLEX/EXT, ABD/ADD, [place] L/R X 20 EA CERVICAL STRETCHING: ROTATION, FLEX 3 X 10 SEC CHIN TUCK 20 X 5 SEC GENTLE SCAP SQUEZZE 20 X 5 TABLE SLIDE INTO FLEX 10 X 5 SEC Assessment Assessment/Impression PATIENT IS AN [address] ODELL S/P LEFT SHOULDER rTSA 11/18/23 TO EVAL AND TX; PMHX INCLUDES BUT NOT LIMITED TO R/L SHOULDER OA, CERVICAL DDD, NEUROPATHY, HLD, HTN, AFIB WITH H/O ABLATION 2004, 2008, 2017, CHILKAT W/ HEARING AIDES. PATIENT LIVES WITH HER SPOUSE WHO ASSISTS HER NEEDED. SHE HAS BEEN COMPLIANT WITH HER PRE OPERATIVE INSTRUCTIONS/ EXERCISES AND ARRIVES WITH HER SLING DONNED APPROPRIATELY. WE DISCUSSED HER RESTRICTION OF NO WB THROUGH SURGICAL ARM, NO LIFTING, REACHING BEHIND BACK, OR USE OF LEFT UE. SHE HAS BEEN USING TYLENOL INTERMITTENTLY WITH MIN DISCOMFORT SINCE HER SURGERY. TODAY WE REVIEWED AND PERFORMED HER PENDULUM ADDING CERVICAL STRETCHING AND TABLE SLIDES TO HER PROGRAM AND PROVIDING A HANDOUT. SHE IS APPROPRIATE FOR SKILLED PHYSICAL THERAPY TO ADDRESS SYMPTOM MGMT, PROGRESS PROM/ AROM PER PROTOCOL WITH RTC/ SCAP STRENGTHENING AND PROPRIOCEPTIVE THER EX PER PROTOCOL. HER INCISION IS PRISTINE WITH MIN ECCHYMOSIS AND MIN TENDERNESS NOTED. SHE WILL F/U WITH ORTHO ON 12/31/23 . PATIENT VERBALIZED UNDERSTANDING TO ALL SKILLED INSTRUCTION AND IN AGREEMENT WITH POC AND FREQ. Primary Functional Limitations USE OF LUE REACHING LIFTING WB ROM STRENGTH ADL'S IADL'S Plan of Care Rehabilitation Potential Good Physical Therapy Goals STG IN 4-6 WEEKS: 1. PATIENT WILL DEMONSTRATE GOOD MGMT OF HIS PAIN AND EDEMA WITH REPORTED PAIN </3/ 10 DURING HIS HOME PROGRAM AND WITH THE PROGRESSION OF HIS PHYSICAL THERAPY. 2. PATIENT WILL RETURN TO INDEPENDENCE WITH ADL'S, RETURN TO DRIVING, AND MAINTAIN HIS PRECAUTIONS/ RESTRICTIONS 3. PATIENT WILL DEMONSTRATE PROM TO WFL TO PREPARE FOR RETURN TO FUNCTIONAL USE OF RIGHT UE LTG WITHIN 10-12WEEKS: 1. PATIENT WILL DEMONSTRATE AROM OF RIGHT SHOULDER TO WFL TO RETURN TO FULL FUNCTIONAL FOR ADL'S, IADL'S AND PEER CENTERED ACTIVITIES. 2. PATIENT WILL DEMONSTRATE FUNCTIONAL STRENGTH TO RETURN TO REACHING OVERHEAD, ANTERIORLY AND OUT TO SIDE NEEDED DURING PATIENT CENTERED ACTIVITIES. 3. PATIENT WILL DEMONSTRATE INDEPENDENCE WITH HIS HEP TO PROGRESS TWD THE ABOVE MENTIONED GOALS, CONTINUED MGMT OF SYMPTOMS, AND ONGOING IMPROVEMENT WITH ROM, STRENGTH AND FUNCTION FOR A FULL RETURN TO ALL ACTIVITIES Coordination/Communication With Referral Source Treatment Plan/Direct Interventions Ice/Cold/Vasopneumatic,Joint Mobilization,Manual Therapy, Neuromuscular Re-ed,Self-Care/ Home Management,Therapeutic Activities,Therapeutic Exercises Frequency/Duration 2X/WEEK FO 12 WEEKS Patient Will Be Discharged From Therapy Completion of LTG(s), Independently Progressing Evaluation Billing Untimed Code Treatment Minutes 15 PT Eval No Charge No Complexity Moderate Certification Information Initial Certification Date 12/02/23 Ending Certification Date 02/29/24 Provider Signature Shows Agreement With POC & Medical Necessity Physician Signature & Date Requested Please Sign/Date Here Physician Comment/Change : Physician NPI Number #
== END 2024-02-27 16:54 | disposition home or self-care (01) ==
PROVIDERS: PCP Family Medicine; Visit Provider Orthopaedic Surgery Sports Medicine
DX: M75.102 Unspecified rotator cuff tear or rupture of left shoulder, not specified as traumatic (principal); M19.012 Primary osteoarthritis, left shoulder; M12.812 Other specific arthropathies, not elsewhere classified, left shoulder; Z96.612 Presence of left artificial shoulder joint; M25.512 Pain in left shoulder; R53.1 Weakness; Z98.890 Other specified postprocedural states; Z51.89 Encounter for other specified aftercare
CPT/HCPCS: 97110; 97140; 97162; 97165; 97535

== ENCOUNTER 2024-01-24 12:26 | Emergency (ER) | payer MEDICARE, BC, SELFPAY ==
[2024-01-24 12:42] VITALS: BP 169/96; PULSE 72; RESP 18; TEMP 37; O2SAT 99; BMI 32.7
--- NOTE | 2024-01-24 15:04 | XR_ITS ---
Patient: CARMINA GREENE Facility:?[facility] Patient ID:?[id number] Site Patient ID:?[id number]. Site :?[id number] Study:?XRay-Shoulder Left 3V-01/24/2024 3:17:49 PM Ordering Physician:LOUIS Final Report: Indication: Postop pain Comparison: Three views left shoulder December 31, 2023 Technique: AP internal, external rotation, and scapular-Y views of the left shoulder were obtained Findings: There is no displaced fracture or dislocation. Stable postoperative change status post reverse shoulder arthroplasty without obvious hardware malpositioning. There is resolution of postoperative soft tissue changes. Impression: Stable postoperative change of the left shoulder status post arthroplasty without obvious fracture or hardware failure Dictated by Dk Shea MD @ 01/24/2024 4:02:04 PM Signed by:?Dk Shea MD @01/24/2024 4:02:04 PM (Electronic Signature)
--- NOTE | 2024-01-24 15:42 | ED_ITS ---
HPI - General Adult General Chief complaint: Shoulder Injury/Pain Stated complaint: shoulder pain post surgery Time Seen by Provider: 01/24/24 14:56 Source: patient Mode of arrival: ambulatory Limitations: no limitations History of Present Illness HPI narrative: Jina is a guerda 78-year-old female coming in today complaining of left shoulder pain. She states that it has been bothering her for about a week, toda y she was pulling her pants up after using the bathroom when she heard and felt a crack and felt immediate pain. She states that now she can not move her shoulder without significant discomfort. Patient did have a shoulder arthroplasty on that side in November, had a unremarkable recovery. She denies pain in any other joint or any recent injury. Pain is located on the top of the shoulder. Related Data Home Medications Medication Instructions Recorded Confirmed aspirin 81 mg tablet,delayed 81 mg PO DAILY 09/17/22 01/24/24 release flecainide 100 mg tablet 50 - 100 mg PO BID 09/17/22 01/24/24 losartan 50 mg-hydrochlorothiazide 1 tab PO DAILY 11/18/23 01/24/24 12.5 mg tablet meloxicam 15 mg tablet 15 mg PO DAILY 11/18/23 01/24/24 simvastatin 40 mg tablet 40 mg PO HS 11/18/23 01/24/24 Allergies Allergy/AdvReac Type Severity Reaction Status Date / Time No Known Allergies Allergy Unknown Unknown Verified 01/24/24 12:48 Review of Systems Status of ROS: Reports: 6 or more systems reviewed and unremarkable except as noted in History and below [facility] Medical History [place] grade 4 cystocele ?N81.10 - Cystocele, unspecified (ICD-10) Left rotator cuff tear arthropathy ?M75.102 - Unspecified rotator cuff tear or rupture of left shoulder, not specified as traumatic (ICD-10) ?M12.812 - Other specific arthropathies, not elsewhere classified, left shoulder (ICD-10) Osteoarthritis of right shoulder ?M19.011 - Primary osteoarthritis, right shoulder (ICD-10) Osteoarthritis of left shoulder ?M19.012 - Primary osteoarthritis, left shoulder (ICD-10) Degenerative disc disease, cervical ?M50.30 - Other cervical disc degeneration, unspecified cervical region (ICD- 10) Neuropathy ?G62.9 - Polyneuropathy, unspecified (ICD-10) Hypertension ?I10 - Essential (primary) hypertension (ICD-10) Hyperlipidemia (08/15/09) ?E78.5 - Hyperlipidemia, unspecified (ICD-10) History of atrial fibrillation ?Z86.79 - Personal history of other diseases of the circulatory system (ICD- 10) Hearing loss ?H91.90 - Unspecified hearing loss, unspecified ear (ICD-10) History of thyroiditis (08/15/09) ?Z86.39 - Personal history of other endocrine, nutritional and metabolic disease (ICD-10) Surgical History 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) ?Z96.612 - Presence of left artificial shoulder joint (ICD-10) History of bilateral cataract extraction (~09/2022) ?Z98.41 - Cataract extraction status, right eye (ICD-10) ?Z98.42 - Cataract extraction status, left eye (ICD-10) History of tonsillectomy and adenoidectomy (~1952) ?Z90.89 - Acquired absence of other organs (ICD-10) History of radiofrequency ablation (RFA) procedure for cardiac arrhythmia (08/15/09) ?Z98.890 - Other specified postprocedural states (ICD-10) History of hysterectomy (~1972) ?Z90.710 - Acquired absence of both cervix and uterus (ICD-10) History of cholecystectomy (~1995) ?Z90.49 - Acquired absence of other specified parts of digestive tract (ICD- 10) Family History Unknown Diabetes Social History Narrative: Cis-gender, heterosexual woman Relationship status: . Spouse/Partner: Earl Education: Some college Occupation: Retired Tobacco: Never smoker E-cigarettes: No Alcohol: No Illicit/recreational drugs: No Safety concerns at home or work: No Dietary restriction(s): None Exercise: No. What is your current living situation?: I presently have a place to live Problems where you live: no known problems In the past 12 months, utilities in danger of being shut off: no In past 12 months, lack of transportation kept you from medical appts, meetings, work, or getting things needed for daily living: no In the past 12 mos, have been you worried that your food would run out before you had money to buy more?: never true In the past 12 mos, the food you bought just didn't last and you didn't have money to buy more?: never true Highest level of school completed/degree received: decline to answer Smoking Status: Never smoker Do you use any of these nicotine containing products: None How often do you have a drink containing alcohol: never AUDIT-C Alcohol total score: 0 Non-prescribed substance use: denies use Caffeine: Yes (TEA) How often does anyone, including family, friends and others, physically hurt you : never How often does anyone, including family, friends and others, insult or talk down to you: never How often does anyone, including family, friends and others, threaten you with harm: never How often does anyone, including family, friends and others, scream or curse at you: never Little interest or pleasure in doing things: not at all Feeling down, depressed, or hopeless: not at all Are you using contraception or practicing any form of control: No Exam Narrative: Exam Narrative: Well-nourished well-developed patient in no acute distress. Alert and oriented. Answers questions appropriately. Mood and affect are appropriate. Thoughts are goal oriented and rational. No tangential or magical thinking noted. Patient speaks in full sentences without needing to catch her breath. Hold her arm bent at the elbow and against the front of the body. HEENT: Normocephalic atraumatic. Pupils are equally round reactive to light. Extraocular muscles are intact. Conjunctivae are moist without any icterus noted. Moist mucous membranes. Extremities: Patient has normal appearing shoulder. Normal contour. When she straightens out her arm she has an acute sharp pain on the top of the shoulder which causes her significant discomfort and she has to adduct her arm back into the body. On palpation of the shoulder she only has discomfort directly over the acromion. Const: Vital Signs, click to edit/add: Vital Signs - 24 hr 01/24/24 12:42 Temperature 98.6 F Pulse Rate [Right] 72 Respiratory Rate 18 Blood Pressure [Ri ght Upper Arm] 169/96 H Pulse Oximetry 99 Oxygen Delivery Me thod Room Air Course Course ED Course: X-ray of the shoulder was done and was unremarkable. Given the amount of discomfort she was having, did proceed with a CT scan which did show a fracture of the acromion. Consult was done with [facility] for Orthopedics, who recommended a sling and outpatient follow-up. Vital Signs Vital signs: Initial Vital Signs Temperature 98.6 F 01/24/24 12:42 Temperature Source Temporal Artery Scan 01/24/24 12:42 Pulse Rate 72 01/24/24 12:42 Respiratory Rate 18 01/24/24 12:42 Blood Pressure 169/96 H 01/24/24 12:42 Blood Pressure Mean 120 H 01/24/24 12:42 Blood Pressure Position Sitting 01/24/24 12:42 Pulse Oximetry 99 01/24/24 12:42 Oxygen Delivery Method Room Air 01/24/24 12:42 Vital Signs Temperature 98.6 F 01/24/24 12:42 Pulse Rate 72 01/24/24 12:42 Respiratory Rate 18 01/24/24 12:42 Blood Pressure 169/96 H 01/24/24 12:42 Pulse Oximetry 99 01/24/24 12:42 Oxygen Delivery Method Room Air 01/24/24 12:42 Temperature 98.6 F 01/24/24 12:42 Pulse Rate 72 01/24/24 12:42 Respiratory Rate 18 01/24/24 12:42 Blood Pressure 169/96 H 01/24/24 12:42 Pulse Oximetry 99 01/24/24 12:42 Oxygen Delivery Method Room Air 01/24/24 12:42 Medical Decision Making MDM Narrative Medical decision making narrative: 78 Year old female with an acromial fracture. Imaging Data X-ray shoulder: Attestation: I have reviewed the pertinent imaging results. Radiologist's impression: Three views left shoulder December 31, 2023 Technique: AP internal, external rotation, and scapular-Y views of the left shoulder were obtained Findings: There is no displaced fracture or dislocation. Stable postoperative change status post reverse shoulder arthroplasty without obvious hardware malpositioning. There is resolution of postoperative soft tissue changes. Impression: Stable postoperative change of the left shoulder status post arthroplasty without obvious fracture or hardware failure CT shoulder: Attestation: I have reviewed the pertinent imaging results. Radiologist's impression: Noncontrast CT of the left shoulder. COMPARISON: Radiographs from 01/24/2024. CT from 10/15/2023. FINDINGS: There is a reverse left total shoulder arthroplasty. Glenoid and humeral components appear appropriately seated. No loosening of the hardware or di slocation. No fracture immediately adjacent to the hardware. Note is made of an acute fracture of the posterior acromion which demonstrates approximately 2 millimeters of displacement and slight angulation. Fracture is noted on coronal oblique image 40 of series 4. There is lateral downward sloping of the acromion. AC joint degenerative arthrosis changes present. IMPRESSION: 1. Acute fracture of the posterior acromion with 2 mm displacement and mild angulation. 2. Reverse left total shoulder arthroplasty. No hardware loosening or fracture immediately adjacent to the hardware. No dislocation. Discharge Plan Discharge Clinical Impression: Acromial fracture Patient Disposition: Home, Self-Care Condition: Stable Additional Instructions: Okay to use pain medications as prescribed. Wear sling at all times for comfort. Follow up with Orthopedics as scheduled on Saturday. Prescriptions: No Action aspirin 81 mg tablet,delayed release (DR/EC) 81 mg PO DAILY flecainide 100 mg tablet 50 - 100 mg PO BID Rx Instructions: 100MG AM, 50MG HS meloxicam 15 mg tablet 15 mg PO DAILY losartan-hydrochlorothiazide 50-12.5 mg tablet 1 tab PO DAILY simvastatin 40 mg tablet 40 mg PO HS Follow Up/Referrals: Andi Echevarria MD [Primary Care Provider] - Stand Alone Forms: [facility] Info Instructions
--- NOTE | 2024-01-24 16:11 | CT_ITS ---
Patient: CARMINA GREENE Facility:?[facility] RIS Patient ID:?[id number] Site Patient ID:?[id number]. Site :?[id number] Study:?CT-Shoulder Left w/o-01/24/2024 4:22:27 PM Ordering Physician:Cecy Sun Final Report: INDICATION: Postoperative pain. Reverse left total shoulder arthroplasty. TECHNIQUE: Noncontrast CT of the left shoulder. COMPARISON: Radiographs from 01/24/2024. CT from 10/15/2023. FINDINGS: There is a reverse left total shoulder arthroplasty. Glenoid and humeral components appear appropriately seated. No loosening of the hardware or dislocation. No fracture immediately adjacent to the hardware. Note is made of an acute fracture of the posterior acromion which demonstrates approximately 2 millimeters of displacement and slight angulation. Fracture is noted on coronal oblique image 40 of series 4. There is lateral downward sloping of the acromion. AC joint degenerative arthrosis changes present. IMPRESSION: 1. Acute fracture of the posterior acromion with 2 mm displacement and mild angulation. 2. Reverse left total shoulder arthroplasty. No hardware loosening or fracture immediately adjacent to the hardware. No dislocation. Dictated by Michael Reeves MD @ 01/24/2024 4:30:11 PM Please note that all CT scans at this facility use dose modulation, iterative reconstruction, and/or weight-based dosing when appropriate to reduce radiation dose to as low as reasonably achievable. Dictated by: Michael Reeves MD @ 01/24/2024 16:30:27 Signed by:?Michael Reeves MD @01/24/2024 4:30:27 PM (Electronic Signature)
== END 2024-01-24 17:19 | disposition home or self-care (01) ==
PROVIDERS: Emergency Provider Family Medicine; PCP Family Medicine
DX: S42.122A Displaced fracture of acromial process, left shoulder, initial encounter for closed fracture (principal); X50.1XXA Overexertion from prolonged static or awkward postures, initial encounter
CPT/HCPCS: 73030; 73200; 99284

== ENCOUNTER 2024-02-05 12:28 | Outpatient (CLI) | payer MEDICARE, BC, SELFPAY | END 2024-02-05 12:29 | disposition home or self-care (01) | PROVIDERS: PCP Family Medicine; Visit Provider Family Medicine | DX: R53.83 Other fatigue (principal); R60.9 Edema, unspecified | CPT/HCPCS: 84439; 84443 ==

== ENCOUNTER 2024-04-22 09:27 | Outpatient (CLI) | payer MEDICARE, BC, SELFPAY ==
--- OUTSIDE RECORDS SUMMARY | 2024-04-22 09:30 | XMS_ITS | Encounter Summary ---
Author Organization [place] Address [facility] [place] [address] Care Team Providers Care Reinforcing Steel Worker Name Role Phone Anand Echevarria MD Primary Care Provider Cristal Terry PA-C Unavailable Cristal Terry PA-C Unavailable [phone] Reason for Visit * Reason Onset Date Comments Refill Request 01/30/2023 flacanide Encounter Details Date Type Department Care Team (Late st Contact Info) Description 01/30/2023 [facility] [id number] [place] [phone] Kirti Landry MD Refill Request (flacanide) Social History Tobacco Use Types Packs/Day Years Used Date Smoking Tobacco: Never Smokeless Tobacco: Never Alcohol Use Standard Drinks/Week Comments No 0 (1 standard drink = 0.6 oz pur e alcohol) Sex and Gender Information Value Date Recorded Sex Assigned at Female 08/06/2023 3:22 PM CDT Gender Identity Female 08/06/2023 3:22 PM CDT Sexual Orientation Straight 08/06/2023 3: 22 PM CDT documented as of this encounter Miscellaneous Notes * Telephone Encounter - Atiya Reno - 01/30/2023 9:30 AM CDT [facility] Call [facility] Phone Message May a detailed message be left on voicemail: yes Reason for Call: Medication Refill Request Has the patient contacted the pharmacy for the refill? Yes Name of medication being requested: flecanide Provider who prescribed the medication: Gris Pharmacy: [facility] [id number] [facility] [id number] [place] [place] Date medication is needed: 01/30 Action Taken: Other: cardio Travel Screening: Not Applicable documented in this encounter Plan of Treatment Not on file documented as of this encounter Visit Diagnoses Not on filedocumented in this encounter Care Teams Reinforcing Steel Worker Relationship Specialty Start Date End Date Anand Echevarria MD PCP - General Family Practice 01/10/15 Cristal Terry PA-C [address] [place] [id number] Physician Utilization Supervisor Cardiovascular Disease 05/10/23 Cristal Terry PA-C [address] [place] [id number] Assigned Heart and Vascular Provider 08/24/23 documented as of this encounter
--- OUTSIDE RECORDS SUMMARY | 2024-04-22 09:30 | XMS_ITS | Encounter Summary ---
Author Organization [place] Address [facility] [place] [address] Care Team Providers Care Spray Technician Name Role Phone Anand Echevarria MD Primary Care Provider [phone] Kirti Landry MD Unavailable Unavailable Cristal Terry PA-C Unavailable [phone] Cristal Terry PA-C Unavailable [phone] Encounter Details Date Type Department Care Team (Late st Contact Info) Description 09/17/2022 External Order Results [facility] [address] [place] [address] Outside, Provider Social History Tobacco Use Types Packs/Day Years Used Date Smoking Tobacco: Never Smokeless Tobacco: Never Alcohol Use Standard Drinks/Week Comments No 0 (1 standard drink = 0.6 oz pur e alcohol) Sex and Gender Information Value Date Recorded Sex Assigned at Female 08/06/2023 3:22 PM CDT Gender Identity Female 08/06/2023 3:22 PM CDT Sexual Orientation Straight 08/06/2023 3: 22 PM CDT COVID-19 Exposure Response Date Recorded In the last 10 days, have yo u been in contact with someone who was confirmed or suspected to have Coronavirus/COVID-19? No / Unsure 09/10/2022 1:32 PM CDT documented as of this encounter Plan of Treatment Not on file documented as of this encounter Procedures Procedure Name Priority Date/Time Associated Diagnosis Comments LIPID PROFILE Routine 09/17/2022 9:40 AM FILEMAKER DEVELOPER BASIC METABOLIC PANEL Routine 09/17/2022 9:40 AM FILEMAKER DEVELOPER documented in this encounter Results * (ABNORMAL) Basic metabolic panel (09/17/2022 9:40 AM FILEMAKER DEVELOPER) Sodium (External) 138 135 - 149 mmol/L NON-INTERFACED (ONBASE SCANS) Potassium (External) 5.3(H) 3.6 - 5.1 mmol/L NON-INTERFACED (ONBASE SCANS) Chloride (External) 101 96 - 114 mmol/L NON-INTERFACED (ONBASE SCANS) CO2 (External) 27 20 - 32 mmol/L NON-INTERFACED (ONBASE SCANS) Urea Nitrogen (External) 16 7 - 30 mg/dL NON-INTERFACED (ONBASE SCANS) Creatinine (External) 0.9 0.5 - 1.5 mg/dL NON-INTERFACED (ONBASE SCANS) GFR Estimated (External) 65 ml/min NON-INTERFACED (ONBASE SCANS) Calcium (External) 9.4 8.4 - 10.6 mg/dL NON-INTERFACED (ONBASE SCANS) Glucose (External) 84 60 - 115 mg/dL NON-INTERFACED (ONBASE SCANS) Blood BLOOD SPECIMEN / Unknown 09/17/2022 9:40 AM FILEMAKER DEVELOPER Narrative [facility] - 08/13/2023 9:44 AM CDT Verified by Link Chen on 08/13/2023. Anand Echevarria MD LAB - BLOOD ORDERABL ES [facility] NON-INTERFACED (ONBASE SCANS) * (ABNORMAL) Lipid Profile (09/17/2022 9:40 AM FILEMAKER DEVELOPER) Triglycerides (External) 153(H) 40 - 149 mg/dL NON-INTERFACE D (ONBASE SCANS) Cholesterol (External) 171 90 - 199 mg/dL NON-INTERFACE D (ONBASE SCANS) LDL Cholesterol Calculated (External) 96 <100 mg/dL NON-INTERFACE D (ONBASE SCANS) HDL Cholesterol (External) 44(L) >=50 mg/dL NON-INTERFACE D (ONBASE SCANS) Blood BLOOD SPECIMEN / Unknown 09/17/2022 9:40 AM FILEMAKER DEVELOPER Narrative [facility] - 08/13/2023 9:44 AM CDT Verified by Link Chen on 08/13/2023. Anand Echevarria MD LAB - BLOOD ORDERABL ES [facility] NON-INTERFACED (ONBASE SCANS) documented in this encounter Visit Diagnoses Not on filedocumented in this encounter Care Teams Spray Technician Relationship Specialty Start Date End Date Anand Echevarria MD PCP - General Family Practice 01/10/15 Kirti Landry MD Assigned Heart and Vascular Provider 09/02/20 01/11/23 Cristal Terry PA-C [address] [place] [id number] Physician Welding Machine Tender Cardiovascular Disease 05/10/23 Cristal Terry PA-C [address] [place] [id number] Assigned Heart and Vascular Provider 08/24/23 documented as of this encounter
--- OUTSIDE RECORDS SUMMARY | 2024-04-22 09:30 | XMS_ITS | Encounter Summary ---
Author Organization [place] Address [facility] [place] [address] Care Team Providers Care Porcelain Buildup Assistant Name Role Phone Anand Echevarria MD Primary Care Provider [phone] Kirti Landry MD Unavailable Unavailable Cristal Terry PA-C Unavailable [phone] Cristal Terry PA-C Unavailable Reason for Visit * Reason Onset Date Comments Clinic Care Coordination - Follow-up 05/15/2018 flecainide Encounter Details Date Type Department Care Team (Latest Contact Info) Description 05/15/2018 My[facility] Medical Advice [facility] [address] [place] [phone] Kirti Landry MD Clinic Care Coordination - Follow-up (fle... Social History Tobacco Use Types Packs/Day Years [...] encounter Miscellaneous Notes * Telephone Encounter - Inés Tobin RN - 05/26/2018 9:24 AM CDT Pt called and stated that she she had requested a refill for her Flecainide and it had not been filled. Per Epic this was filled on 04/16 and sent to [employer] as requested. LM for pt that this was sent in and to call back to discuss. JNelsonClaudiaN documented in this encounter Plan of Treatment Not on file documented as of this encounter Visit Diagnoses Not on filedocumented in this encounter Care Teams Porcelain Buildup Assistant Relationship Specialty Start Date End Date Anand Echevarria MD PCP - General Family Practice 01/10/15 Kirti Landry MD Assigned Heart and Vascular Provider 09/02/20 01/11/23 Cristal Terry PA-C [address] [place] [id number] Physician Sales And Merchandising Associate Cardiovascular Disease 05/10/23 Cristal Terry PA-C [address] [place] [id number] Assigned Heart and Vascular Provider 08/24/23 documented as of this encounter
--- OUTSIDE RECORDS SUMMARY | 2024-04-22 09:30 | XMS_ITS | Encounter Summary ---
Author Organization [place] Address [facility] [place] [address] Care Team Providers Care Golf Course Equipment Operator Name Role Phone Chelsea Rudolph MD Primary Care Provider Anand Villarreal MD Primary Care Provider [phone] Kirti Landry MD Unavailable Unavailable Cristal Terry PA-C Unavailable [phone] Cristal Terry PA-C Unavailable [phone] Encounter Details Date Type Department Care Team (Late st Contact Info) Description 01/29/2013 Office Visit-[facility] [address] [place] [address] Clarice De Leon, FIELD CONTACT PERSON LEAVE MANAGER [address] [facility] [address] [place] [address] Social History Tobacco Use Types Packs/Day Years Used Date Smoking Tobacco: Never Alcohol Use Standard Drinks/Week Comments No 0 (1 standard drink = 0.6 oz pur e alcohol) Sex and Gender Information Value Date Recorded Sex Assigned at Female 08/06/2023 3:22 PM CDT Gender Identity Female 08/06/2023 3:22 PM CDT Sexual Orientation Straight 08/06/2023 3: 22 PM CDT documented as of this encounter Progress Notes * Clarice Nuñez, PRINCIPAL HARDWARE ARCHITECT - 01/30/2013 11:51 AM CDT Progress Note Created by: Clarice Nuñez N.P. DATE: 01/29/2013 #[id number] JINA GREENE DATE OF : 1945 AGE: [age] years old Referring Physician: ANAND VILLARREAL Referring Clinic: [facility] CURRENT DIAGNOSES 1. - Ventricular tachycardia, 427.1 2. - Atrial Fibrillation, 427.31 3. Screening For Other And Unspecified Cardiovascular Conditions, V81.2 4. - Syncope, 780.2 5. - Arrhythmia, 427.9 6. - Hypercholesterolemia, 272.0 7. - Tachycardia, 785.0 8. - Shortness of Breath, 786.05 ALLERGIES NKA MEDICATIONS (prior to changes made today) 1. Aspirin 81 mg Tablet, 1 p.o. daily 2. Calcium Carbonate and Vitamin D 600 mg-125 u, Dose/instruction UK 3. Celebrex 200 mg capsule, 1 p.o. daily 4. Zizmfmqidfe-Stqqpcbvmyw-JGR 500-500-66.7 mg tablet, 2 p.o. daily 5. Simvastatin 40 mg Tablet, 1 p.o. qHS CHIEF COMPLAINTS annual follow up HISTORY OF PRESENT ILLNESS Ms. Greene is a delightful 67-year-old woman who I am having the pleasure of seeing today for follow up. As you recall, she has a history of atrial fibrillation for which she underwent a radiofrequency ablation back in November 2008. Since that time, she has done well. Other prevalent past medical history includes hypercholesterolemia and thyroiditis. At today's visit, her blood pressure was stable at 112/74. Her weight was stable at 166 pounds. Shestates that she has not had even a palpation over the past year. She is pleased with how well she is feeling. She is having some issues with her knee. Otherwise, she offers no concerns today. Her last echocardiogram was completed back in 2003 and showed an EF of 65%. RV function was normal.She had no significant valvular insufficiency appreciated. All other review of systems and past medical history are noted below. PAST HISTORY Past Medical Illnesses: hypercholesterolemia, diverticulitis, fibroids, thyroiditis, Past Cardiac Illnesses: tachyarhythmia x 30 years, atrial fibrillation, syncope Surgeries/Procedures - General: tonsil and adenoidectomy, total hysterectomy, s/p BSO Cardiac/Vasc Procedures-Invasive: radiofrequency ablation Nov 2008 Cardiology Procedures-NonInvasive: myocardial perfusion imaging (Nuclear) August 2004, echocardiogram August 2004, event monitor , treadmill Oct 2004 PMHx Echo Results: 08/14 normal Left Ventricular Ejection Fraction: 08/14 EF 74% by nuclear study, EF<GT>55% by Echo -Aug 2004 Nuclear Results: 08/14-no ischemia or infarct, 10/14 No exercise induced arrhythmias LVEF of 65% documented via echocardiogram on 08/14/2004 CARDIAC RISK FACTORS Tobacco Abuse: negative; Family History of Heart Disease: negative; Hyperlipidemia: positive; Hypertension: negative; Diabetes Mellitus: negative; Prior History of Heart Disease: negative; Obesity:negative; Sedentary Life Style:negative; Age:positive; Menopausal:positive SOCIAL HISTORY Alcohol Use - does not use alcohol; Smoking - does not smoke; Diet - regular diet without modifications, caffeine use-5 or more per day and drinks iced tea; Lifestyle - and children; Exercise- some exercise and vinicius class; 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 EYES wears eye glasses/contact lenses EARS, NOSE, THROAT, MOUTH denies any hearing loss, epistaxis, hoarseness or difficulty speaking. RESPIRATORY denies dyspnea, snoring, cough, wheezing or hemoptysis. CARDIOVASCULAR negative for palpitations, chest pain, orthopnea, PND, peripheral edema, syncope or claudication. ABDOMINAL denies ulcer disease, hematochezia or melena. MUSCULOSKELETAL left knee pain NEUROLOGICAL denies any history of recurrent strokes, headaches, TIA, or seizure disorder. PSYCHIATRIC denies any history of depression, substance abuse or change in cognitive functions. ENDOCRINE denies any history of thyroid disease or diabetes mellitus. HEMATOLOGICAL/IMMUNOLOGIC denies any food allergies, seasonal allergies, bleeding disorders. PHYSICAL EXAMINATION VITAL SIGNS: Blood Pressure: 112/74Sitting, Left arm, regular cuff Pulse- 80.00/min. Weight- 166.40 lbs. Height- 63 BMI Measurement: 29 CONSTITUTIONAL cooperative, alert and oriented,well developed, well nourished, in no acute distress., mildly obese SKIN warm and dry to touch, no apparent skin lesions or masses noted HEAD normocephalic, no masses, no skin lesions, non tender to palpation EYES EOMS intact without nystagmus ENT ears, nose and throat unremarkable NECK carotid pulses are full and equal bilaterally, JVP normal, no carotid bruit, no thyromegaly CHEST normal symmetry, no tenderness to palpation, normal respiratory excursion, no intercostal retraction, no use of accessory muscles, clear to auscultation. CARDIAC regular rhythm, S1 normal, S2 normal, No S3 or S4, Apical impulse not displaced, no murmurs, gallops or rubs detected. ABDOMEN abdomen unremarkable EXTREMITIES & BACK no LE edema PSYCHIATRIC oriented to time, place, and person, no difficulties with speech or language, normal memory NEUROLOGICAL no gross motor deficits noted, affect appropriate, oriented to time, person and place. MEDICATIONS UPDATED/STARTED TODAY: Celebrex 200 mg capsule, 1 p.o. daily, #0 (Zero) Vdxfnznkmfo-Ndeqavafbos-WAD 500-500-66.7 mg tablet, 2 p.o. daily, #0 (Zero) MEDICATIONS REFILLED/STOPPED TODAY: Fish Oil 1,000 mg Capsule 1 p.o. daily 0 Physician Order IMPRESSIONS/PLAN Ms. Greene is a delightful 67-year-old woman with a history of atrial fibrillation. She has done well since her A-Fib ablation. She offers no concerns at today's visit. She will follow up with Dr. Landry next year for her annual cardiology visit. Her 12 lead EKG done today showed sinus rhythm at 71 beats per minute. As always, thank you for including us in the care of this patient. TODAYS ORDERS 1. 12 Lead EKG Today Clarice Nuñez N.P. documented in this encounter Plan of Treatment Not on file documented as of this encounter Visit Diagnoses Not on filedocumented in this encounter Care Teams Golf Course Equipment Operator Relationship Specialty [place] [address] [place] [address] [id number] PCP - General 09/09/03 01/09/15 Anand Villarreal MD [address] [place] [address] [id number] PCP - General Family Practice 01/10/15 Kirti Landry MD Assigned Heart and Vascular Provider 09/02/20 01/11/23 Cristal Terry PA-C [address] [place] [id number] Physician Landscape Specialist Cardiovascular Disease 05/10/23 Cristal Terry PA-C [address] [place] [id number] Assigned Heart and Vascular Provider 08/24/23 documented as of this encounter
--- OUTSIDE RECORDS SUMMARY | 2024-04-22 09:30 | XMS_ITS | Referral Summary ---
Author Organization [place] Address [facility] [place] [address] Care Team Providers Care Die Sinker Name Role Phone Anand Echevarria MD Primary Care Provider [phone] Cristal Terry PA-C Unavailable Cristal Terry PA-C Unavailable Encounters Date Type Department Care Team Description 03/30/2024 Refill [facility] [id number] [place] [address] [address] [place] [address] Cristal Terry PA-C Refill Request (Flecanide) from Last 3 Months Allergies Active Allergy Reactions Criticality Noted Date Comments No Known Drug Allergy 07/20/2003 Medications Medication Sig Dispensed Refills Start Date End Date Status simvastatin (ZOCOR) 40 MG tablet Take 40 mg by mouth At Bedtime Active MELOXICAM PO Take 15 mg by mouth daily Active [place]-3 Fatty Acids (FISH OIL) 1200 MG capsule Take 1,200 mg by mouth daily Active aspirin 81 MG EC tablet daily 09/17/2022 Active LOSARTAN POTASSIUM-HCTZ PO Active flecainide (TAMBOCOR) 100 MG tabletIndications: Paroxysmal atrial fibrillation (H) Take 1 tablet (100 mg) by mouth 2 times daily 180 tablet 1 03/30/2024 Active flecainide (TAMBOCOR) 100 MG tabletIndications: Paroxysmal atrial fibrillation (H) Take 1 tablet (100 mg) by mouth 2 times daily 180 tablet 2 01/30/2023 03/30/2024 Discontinued (Reorder (No AVS)) Active Problems Problem Noted Date Diagnosed Date Pericardial effusion 09/16/2017 Insomnia 07/20/2005 Overview: Problem list name updated by automated process. 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 Provider to review Ventricular tachycardia Atrial fibrillation Screening for cardiovascular condition Overview: Problem list name updated by automated process. Provider to review Syncope Shortness of breath Hyperlipidemia Resolved Problems Problem Noted Date Diagnosed Date Resolved Date Paroxysmal tachycardia 07/26/200406/28 Overview: usually controlled with vasosvagal maneuvers Problem list name updated by automated process. Provider to review Pure hypercholesterolemia 07/20/2003 Immunizations Name Administration Dates Next Due Influenza (IIV3) PF 09/10/2003 Social History Tobacco Use Types Packs/Day Years Used Date Smoking Tobacco: Never Smokeless Tobacco: Never Tobacco Cessation:Counseling Given: Not Answered Alcohol Use Standard Drinks/Week Comments No 0 (1 standard drink = 0.6 oz pur e alcohol) PHQ-2 Answer Date Recorded PHQ-2 Score 0 08/13/2023 Adolescent Education Answer Date Record ed Getting School Help Needed Not on file 08/07 Sex and Gender Information Value Date Recorded Sex Assigned at Female 08/06/2023 3:22 PM CDT Gender Identity Female 08/06/2023 3:22 PM CDT Sexual Orientation Straight 08/06/2023 3: 22 PM CDT Last Filed Vital Signs Vital Sign Reading Time Taken Comments Blood Pressure 136/70 08/13/2023 9:56 AM CDT Pulse 69 08/13/2023 9:56 AM CDT Temperature 35.9 ??C (96.6 ??F) 09/18/2017 7:47 AM CS T Respiratory Rate 18 09/18/2017 7:47 AM GUM COOK Oxygen Saturation 96% 08/13/2023 9:56 AM CDT Inhaled Oxygen Concentration - - Weight 78.9 kg (174 lb) 08/13/2023 9:56 AM CDT Height 160 cm (5' 3) 08/13/2023 9:56 AM CDT Body Mass Index 30.82 08/13/2023 9:56 AM CDT Plan of Treatment Not on file Procedures Procedure Name Priority Date/Time Associated Diagnosis Comments LIPID PROFILE Routine 09/17/2022 9:40 AM GUM COOK GLUCOSE BY METER Routine 09/17/2017 4:19 AM GUM COOK Paroxysmal atrial fibrillation (H) C DEXA, BONE DENSITY, AXIAL SKEL Routine 03/26/2004 Symptomatic Female Climacteric State from Last 3 Months or Most Recently Relevant to Health Maintenance Results * (ABNORMAL) Lipid Profile (09/17/2022 9:40 AM GUM COOK) Triglycerides (External) 153(H) 40 - 149 mg/dL NON-INTERFACE D (ONBASE SCANS) Cholesterol (External) 171 90 - 199 mg/dL NON-INTERFACE D (ONBASE SCANS) LDL Cholesterol Calculated (External) 96 <100 mg/dL NON-INTERFACE D (ONBASE SCANS) HDL Cholesterol (External) 44(L) >=50 mg/dL NON-INTERFACE D (ONBASE SCANS) Blood BLOOD SPECIMEN / Unknown 09/17/2022 9:40 AM GUM COOK Narrative [place] PATRIICAT - 08/13/2023 9:44 AM CDT Verified by Link hCen on 08/13/2023. Anand Echevarria MD LAB - BLOOD ORDERABL ES [place] PFT NON-INTERFACED (ONBASE SCANS) * (ABNORMAL) Glucose by meter (09/17/2017 4:19 AM GUM COOK) Glucose 136(H) 70 - 99 mg/dL 09/17/2017 4:25 AM GUM COOK POINT OF CARE TEST, GLUCOSE 09/17/2017 4:19 AM GUM COOK 09/17/2017 4:25 AM GUM COOK Parish Polanoc MD [facility] POCT Performing Organization Address [facility]/State/ZIP Co de Phone Number POINT OF CARE TEST, GLUCOSE * DEXA, BONE DENSITY, AXIAL SKEL (03/26/2004) Anatomical Region Laterality Modality Bone Mineral Den sity Impressions 03/26/2004 BONE DENSITOMETRY [facility] 03/22/2004 PATIENT: ??Jina Garcia CHART: [id number] : ??1945 AGE: ??58 year old SEX: ??female REFERRING PHYSICIAN: ??Chelsea Rudolph M.D. PROCEDURE: ??Bone density scanning was performed using DEXA technology performed on a [employer] scanner. ??Reporting is completed in the form of a T-score. ??The T-score represents the standard deviation from peak bone mass based on a young healthy adult. REFERENCE T-SCORES: ? Normal ?Greater than -1.0 ? Osteopenia ?-1.0 to -2.5 ? Osteoporosis ?Less than -2.5 RISK FACTORS: ??Early menopause age 28 CURRENT TREATMENT: ??Calcium with Vitamin D, Estrogen FINDINGS: ? Lumbar Spine (L2-L4): ??T-score -0.01 ? Femoral Neck: ??T-score -1.02 ?? IMPRESSION: Borderline osteopenia. Zuly Marie M.D. Electronically signed Chelsea Rudolph MD SPECIAL IMAGING STUDIES from Last 3 Months or Most Recently Relevant to Health Maintenance Care Teams Die Sinker Relationship Specialty Start Date End Date Anand Echevarria MD PCP - General Family Practice 01/10/15 Cristal Terry PA-C [address] [place] [id number] Physician Chute Feeder Cardiovascular Disease 05/10/23 Cristal Terry PA-C [address] [place] [id number] Assigned Heart and Vascular Provider 08/24/23
--- OUTSIDE RECORDS SUMMARY | 2024-04-22 09:30 | XMS_ITS | Clinical Summary ---
Author Organization [place] Address [address] [place] [address]. [place] [address] Care Team Providers Care Clinical Nurse Occupational Medicine Name Role Phone Anand Echevarria MD Primary Care Provider [phone] Cristal Terry PA-C Unavailable [phone] Cristal Terry PA-C Unavailable Allergies Active Allergy Reactions Criticality Noted Date Comments No Known Drug Allergy 07/20/2003 Medications Medication Sig Dispensed Refills Start Date End Date Status simvastatin (ZOCOR) 40 MG tablet Take 40 mg by mouth At Bedtime Active MELOXICAM PO Take 15 mg by mouth daily Active [place]-3 Fatty Acids (FISH OIL) 1200 MG capsule [...] intermittent 02/20/2005 Overview: intermittent - going to [facility] Thyroiditis 07/26/2004 Overview: right thyroid enlargement = [...] process. Provider to review Pure hypercholesterolemia 07/20/2003 Encounters Date Type Department Care Team Description 03/30/2024 Refill [facility] [address] [place] [address] Cristal Terry PA-C Refill Request (Flecanide) from Last 3 Months Immunizations Name Administration Dates Next Due Influenza (IIV3) PF 09/10/2003 Family History * Patient is adopted Medical History Relation Comments C.A.D. Maternal Uncle 1 from [place] re lated to diabetes type II Diabetes Maternal Uncle 2 Diabetes Mother type II Relation Status Comments Maternal Uncle 1 Maternal Uncle 2 Mother Social History Tobacco Use Types Packs/Day Years [...] T Respiratory Rate 18 09/18/2017 7:47 AM GRADUATE STUDIES DEAN Oxygen Saturation 96% 08/13/2023 9:56 AM CDT Inhaled Oxygen Concentration - - Weight 78.9 kg (174 lb) 08/13/2023 9:56 AM CDT Height 160 cm (5' 3) 08/13/2023 9:56 AM CDT Body Mass Index 30.82 08/13/2023 9:56 AM CDT Plan of Treatment Health Maintenance Due Date Last Done Comments ADVANCE CARE PLANNING 1945 ANNUAL REVIEW OF HM ORDERS 1945 RSV VACCINE ( & 60+) (1 - 1-dose 60+ series) 2003 FALL RISK ASSESSMENT 2008 MEDICARE ANNUAL WELLNESS VISIT 2008 02/20/2005, 07/20/2003 ZOSTER IMMUNIZATION (2 of 3) 01/23/2012 11/28/2011 Pneumococcal Vaccine: 65+ Years (2 of 2 - PPSV23 or PCV20) 09/14/2015 07/20/2015, 11/29/2014 DEXA 03/26/2019 03/26/2004 GLUCOSE 09/17/2020 09/17/2017, 05/2017, 09/16/2017, Additional history exists COVID-19 Vaccine ( season) 2023 08/21/2022, 02/09/2022, 09/15/2021, Additional history exists LIPID 09/17/2023 09/17/2022, 02/09, 07/26/2004, Additional history exists PHQ-2 (once per calendar year) 2023 08/13/2023 INFLUENZA VACCINE (Season Ended) 2024 08/22/2021, 08/22/2021, 07/28/2020, Additional history exists DTAP/TDAP/TD IMMUNIZATION (3 - Td or Tdap) 07/07/2031 07/07/2021, 10/17/2011, 06/24/2007, Additional history exists HPV IMMUNIZATION Aged Out No longer e ligible based on patient's age to complete this topic IPV IMMUNIZATION Aged Out No longer e ligible based on patient's age to complete this topic MENINGITIS IMMUNIZATION Aged Out No l onger eligible based on patient's age to complete this topic RSV MONOCLONAL ANTIBODY Aged Out No l onger eligible based on patient's age to complete this topic Procedures Procedure Name Priority Date/Time Associated Diagnosis Comments LIPID PROFILE Routine 09/17/2022 9:40 AM GRADUATE STUDIES DEAN GLUCOSE BY METER Routine 09/17/2017 4:19 AM GRADUATE STUDIES DEAN Paroxysmal atrial fibrillation (H) C DEXA, BONE DENSITY, AXIAL SKEL Routine 03/26/2004 Symptomatic Female Climacteric State from Last 3 Months or Most Recently Relevant to Health Maintenance Results * (ABNORMAL) Lipid Profile (09/17/2022 9:40 AM GRADUATE STUDIES DEAN) Triglycerides (External) 153(H) 40 - 149 mg/dL NON-INTERFACE D (ONBASE SCANS) Cholesterol (External) 171 90 - 199 mg/dL NON-INTERFACE D (ONBASE SCANS) LDL Cholesterol Calculated (External) 96 <100 mg/dL NON-INTERFACE D (ONBASE SCANS) HDL Cholesterol (External) 44(L) >=50 mg/dL NON-INTERFACE D (ONBASE SCANS) Blood BLOOD SPECIMEN / Unknown 09/17/2022 9:40 AM GRADUATE STUDIES DEAN Narrative [place] PFT - 08/13/2023 9:44 AM CDT Verified by Link Chen on 08/13/2023. Anand Echevarria MD LAB - BLOOD ORDERABL ES [place] PFT NON-INTERFACED (ONBASE SCANS) * (ABNORMAL) Glucose by meter (09/17/2017 4:19 AM GRADUATE STUDIES DEAN) Glucose 136(H) 70 - 99 mg/dL 09/17/2017 4:25 AM GRADUATE STUDIES DEAN POINT OF CARE TEST, GLUCOSE 09/17/2017 4:19 AM GRADUATE STUDIES DEAN 09/17/2017 4:25 AM GRADUATE STUDIES DEAN Parish Polanco MD LAB - BEAKER POCT POINT OF CARE TEST, GLUCOSE * DEXA, BONE DENSITY, AXIAL SKEL (03/26/2004) Anatomical Region Laterality Modality Bone Mineral Den sity Impressions 03/26/2004 BONE DENSITOMETRY [facility] 03/22/2004 PATIENT: ??Jina Garcia CHART: [id number] : ??1945 AGE: ??58 year old SEX: ??female REFERRING PHYSICIAN: ??Chelsea Rudolph M.D. PROCEDURE: ??Bone density scanning was performed using DEXA technology performed on a [employer] scanner. ??Reporting is completed in the form [...] Recently Relevant to Health Maintenance Care Teams Clinical Nurse Occupational Medicine Relationship Specialty Start Date End Date Anand Echevarria MD PCP - General Family Practice 01/10/15 Cristal Terry PA-C [address] [place] [id number] Physician Legal Transcriptionist Cardiovascular Disease 05/10/23 Cristal Terry PA-C [address] [place] [id number] Assigned Heart and Vascular Provider 08/24/23
--- OUTSIDE RECORDS SUMMARY | 2024-04-22 09:30 | XMS_ITS | Encounter Summary ---
Author Organization [place] Address [facility] [place] [address] Care Team Providers Care Para Educator Name Role Phone Anand Echevarria MD Primary Care Provider Cristal Terry PA-C Unavailable [phone] Cristal Terry PA-C Unavailable Reason for Visit * Reason Onset Date Comments Refill Request 03/30/2024 Flecanide Encounter Details Date Type Department Care Team (Late st Contact Info) Description 03/30/[address] [facility] Heart [facility] [address] [place] [address] [address] [place] [address] Cristal Terry PA-C [address] [facility] [address] [place] [address] Refill Request (Flecanide) Social History Tobacco Use Types Packs/Day Years [...] encounter Miscellaneous Notes * Telephone Encounter - Clem Pan RN - 03/30/2024 12:04 PM CDT [facility] Cardiology Refill Guideline reviewed. Medication meets criteria for refill. documented in this encounter Plan of Treatment Not on file documented as of this encounter Visit Diagnoses Diagnosis Paroxysmal atrial fibrillation (H) Atrial fibrillation documented in this encounter Care Teams Para Educator Relationship Specialty Start Date End Date Anand Echevarria MD PCP - General Family Practice 01/10/15 Cristal Terry PA-C [address] [place] [id number] Physician Leather Belt Shaper Cardiovascular Disease 05/10/23 Cristal Terry PA-C [address] [place] [id number] Assigned Heart and Vascular Provider 08/24/23 documented as of this encounter
--- OUTSIDE RECORDS SUMMARY | 2024-04-22 09:30 | XMS_ITS | Encounter Summary ---
Author Organization [facility] Address [address] [place] [address]. [place] [address] Care Team Providers Care Hearing Aid Mechanic Name Role Phone Chelsea Rudolph MD Primary Care Provider Anand Villarreal MD Primary Care Provider Kirti Landry MD Unavailable Unavailable Cristal Terry PA-C Unavailable [phone] Cristal Terry PA-C Unavailable [phone] Encounter Details Date Type Department Care Team (Late st Contact Info) Description 01/11/2014 Office Visit-[facility] [address] [place] [phone] Kirti Landry MD Social History Tobacco Use Types Packs/Day Years [...] as of this encounter Progress Notes * Kirti Landry MD - 01/13/2014 12:21 PM CST Progress Note Created by: Kirti Landry M.D. DATE: 01/11/2014 JINA GREENE DATE OF : 1945 AGE: [age] years old Referring Physician: ANAND VILLARREAL Referring Clinic: [facility] CURRENT DIAGNOSES 1. - Ventricular tachycardia, 427.1 2. - Atrial Fibrillation, 427.31 3. Screening For Other And Unspecified Cardiovascular Conditions, V81.2 4. - Syncope, 780.2 5. - Arrhythmia, 427.9 6. - Hypercholesterolemia, 272.0 7. - Tachycardia, 785.0 8. - Shortness of Breath, 786.05 ALLERGIES NKA MEDICATIONS (prior to changes made today) 1. Aspirin 81 mg Tablet, 1 p.o. daily 2. Calcium Carbonate And Vitamin D 600 Mg-125 U, 1 p.o. daily 3. flecainide 150 mg tablet, 300 mg po PRN when in atrial fib 4. Yyrqoekqwno-Iunfbuhdkqo-PIS 500-500-66.7 mg tablet, 2 p.o. daily 5. Simvastatin 40 mg Tablet, 1 p.o. qHS 6. Vitamin D3 2,000 unit tablet, 1 1/2 p.o. daily CHIEF COMPLAINTS Atrial Fibrillation HISTORY OF PRESENT ILLNESS I had the pleasure of seeing Ms. Greene for follow up of her atrial fibrillation. She is a 68-year-old white female who had symptomatic recurrent atrial fibrillation for years. She underwent a catheter ablation of atrial fib in November 2008. Subsequently, she has had some occasional palpitations but no documented atrial fibrillation. She was last seen by me about a year ago. Over the last year, she had one episode of a rapid heartbeat that lasted for about four days. She woke up with heart racing. An EKG was done on August 24, 2013 and showed atrial fibrillation with a rapid ventricular rate. She was doing reasonably well during atrial fibrillation. She converted back to sinus rhythm about four days later. She did not go to the Emergency Room. So far, she has been doing well with no other complaints. On examination, the blood pressure was 117/78. Body weight was 167 pounds. Heart rate was 80 beats per minute. The eyes and ENT were unremarkable. The lungs were clear. The cardiac rhythm was regular. The heart sounds were normal without murmurs. The abdominal examination showed no hepatomegaly. There was no pedal edema. The EKG today showed normal sinus rhythm. PAST HISTORY Past Medical Illnesses: hypercholesterolemia, diverticulitis, fibroids, thyroiditis, Past Cardiac Illnesses: atrial fibrillation sp catheter ablation, syncope Surgeries/Procedures - General: tonsil and adenoidectomy, [...] of 65% documented via echocardiogram on 08/14/2004 REVIEW OF SYSTEMS GENERAL feels well, no change in exercise tolerance., weight gain, 0.7 lb since last visit INTEGUMENTARY denies any change in hair or nails, rashes, or skin lesions. EYES wears eye glasses/contact lenses EARS, NOSE, THROAT, MOUTH denies any hearing loss, epistaxis, hoarseness or difficulty speaking. RESPIRATORY denies dyspnea, snoring, cough, wheezing or hemoptysis. CARDIOVASCULAR palpitations ABDOMINAL denies ulcer disease, hematochezia or melena. MUSCULOSKELETAL pain shoulder(s) knee(s) NEUROLOGICAL denies any history of recurrent strokes, headaches, TIA, or seizure disorder. PSYCHIATRIC denies any history of depression, substance abuse or change in cognitive functions. ENDOCRINE denies any history of thyroid disease or diabetes mellitus. HEMATOLOGICAL/IMMUNOLOGIC denies any food allergies, seasonal allergies, bleeding disorders. PHYSICAL EXAMINATION VITAL SIGNS: Blood Pressure: 116/78Sitting, Left arm, regular cuff Pulse- 80.00/min. Weight- 167.10 lbs. Height- 63 BMI Measurement: 29 CONSTITUTIONAL cooperative, alert and oriented,well developed, well nourished, in no acute distress., mildly obese SKIN warm and dry to touch, no apparent skin lesions or masses noted HEAD normocephalic, no masses, no skin lesions, non tender to palpation EYES PERRL, EOMS intact without nystagmus ENT ears, nose and throat unremarkable NECK carotid pulses are full and equal bilaterally, JVP normal, no carotid bruit, no thyromegaly, about 15 mm R thyroid nodule CHEST normal symmetry, no tenderness to palpation, normal respiratory excursion, no intercostal retraction, no use of accessory muscles, clear to auscultation and percussion. CARDIAC regular rhythm, S1 normal, S2 normal, No S3 or S4, Apical impulse not displaced, no murmurs, gallops or rubs detected. ABDOMEN abdomen unremarkable EXTREMITIES & BACK no LE edema PSYCHIATRIC oriented to time, place, and person, no difficulties with speech or language, normal memory NEUROLOGICAL no gross motor deficits noted, affect appropriate, oriented to time, person and place. MEDICATIONS UPDATED/STARTED TODAY: Calcium Carbonate And Vitamin D 600 Mg-125 U, 1 p.o. daily, 0 flecainide 150 mg tablet, 300 mg po PRN when in atrial fib, #90 (Ninety) Vitamin D3 2,000 unit tablet, 1 1/2 p.o. daily, #0 (Zero) MEDICATIONS REFILLED/STOPPED TODAY: Calcium Carbonate and Vitamin D 600 mg-125 u Dose/instruction 0 Directions Changed-No Abbrvs andCelebrex 200 mg capsule 1 p.o. daily #0 (Zero) Patient Request IMPRESSIONS/PLAN ASSESSMENT/RECOMMENDATION: Ms. Greene had recurrent atrial fibrillation last year. Compared to hercondition before the ablation, she seems to have less frequent episodes. For management, I have recommended flecainide as a p.o out of pocket strategy. She was advised to take flecainide 300 mg once when she is in atrial fibrillation. She was asked to avoid strenuous activity in atrial fibrillationand particularly after taking flecainide. If she continues to do poorly in atrial fibrillation in about four to six hours, she should go to the Emergency Room or contact our office for further directions. It is my pleasure to participate in the care of this patient. If you have any questions, please do not hesitate to contact me. TODAYS ORDERS 1. 12 Lead EKG 1 year 2. Return Visit 1 year Kirti Landry M.D. documented in this encounter Plan of Treatment Not on file documented as of this encounter Visit Diagnoses Not on filedocumented in this encounter Care Teams Hearing Aid Mechanic Relationship Specialty Start Date End Date Chelsea Rudolph MD [address] [place] [address] [id number] PCP - General 09/09/03 01/09/15 Anand Villarreal MD [address] [place] [id number] PCP - General Family Practice 01/10/15 Kirti Landry MD Assigned Heart and Vascular Provider 09/02/20 01/11/23 Cristal Terry PA-C [address] [place] [id number] Physician Electrical Assembly Supervisor Cardiovascular Disease 05/10/23 Cristal Terry PA-C [address] [place] [id number] Assigned Heart and Vascular Provider 08/24/23 documented as of this encounter
--- OUTSIDE RECORDS SUMMARY | 2024-04-22 09:31 | XMS_ITS | Encounter Summary ---
Author Organization [facility] Address [address] [place] [address]. [place] [address] Care Team Providers Care Performance Manager Name Role Phone Chelsea Rudolph MD Primary Care Provider Anand Villarreal MD Primary Care Provider [phone] Kirti Landry MD Unavailable Unavailable Cristal Terry PA-C Unavailable [phone] Cristal Terry PA-C Unavailable [phone] Encounter Details Date Type Department Care Team (Late st Contact Info) Description 01/09/2010 Office Visit-[facility] [address] [place] [phone] Kirti Landry MD Social History Tobacco Use [...] Progress Notes * Kirti Landry MD - 01/09/2012 9:05 AM CST Progress Note Created by: Kirti Landry M.D. DATE: 01/09/2010 JINA GREENE DATE OF : 1945 AGE: [age] years old Referring Physician: ANAND VILLARREAL CURRENT DIAGNOSES 1. - Ventricular tachycardia, 427.1 2. - Shortness of Breath, 786.05 3. - Hypercholesterolemia, 272.0 4. - Tachycardia, 785.0 5. - Atrial Fibrillation, 427.31 6. - Arrhythmia, 427.9 ALLERGIES NKA MEDICATIONS (prior to changes made today) 1. Fish Oil 1,000 mg Capsule, 1 p.o. daily 2. Simvastatin 40 mg Tablet, 1 p.o. qHS 3. Calcium Carbonate and Vitamin D 600 mg-125 u, Dose/instruction [place] 4. Aspirin 81 mg Tablet, 1 p.o. daily CHIEF COMPLAINTS HISTORY OF PRESENT ILLNESS I had the pleasure of seeing Mrs. Greene for followup of atrial fibrillation, status post ablation. This 64-year-old white female underwent catheter ablation of atrial fibrillation in November,.She was last seen by me in January,. Since the last clinic visit about a year ago she has been doing very well. She only feels rare episodes of short-lasting palpitations for seconds. It has been known through the event monitor that she had short-lasting atrial arrhythmia for seconds. At the present time she has no fatigue, shortness of breath, or chest pain. On examination her weight was down to 170 pounds. The blood pressure was normal and the pulse rate was 76 beats per minute. The lungs were clear and the cardiac rhythm was regular. She had no pedal edema. The EKG showed normal sinus rhythm today. PAST HISTORY Past Medical Illnesses: hypercholesterolemia, diverticulitis, fibroids, thyroiditis Past Cardiac Illnesses: tachyarhythmia x 30 years, atrial fibrillation Surgeries/Procedures - General: tonsil and adenoidectomy, total hysterectomy, s/p BSO Cardiology Procedures-Invasive: radiofrequency ablation Nov 2008 Cardiology Procedures-Noninvasive: myocardial perfusion imaging (Nuclear) August 2004, echocardiogram August 2004, event monitor , treadmill Oct 2004 Left Ventricular Ejection Fraction: 74% Nuclear Results: No exercise induced arrhythmias. REVIEW OF SYSTEMS GENERAL denies recent weight loss, weight gain, fever or chills or change in exercise tolerance. INTEGUMENTARY denies any change in hair or nails, rashes, or skin lesions. EYES denies diplopia, history of glaucoma or visual field defects. EARS, NOSE, THROAT, MOUTH denies any hearing loss, epistaxis, hoarseness or difficulty speaking. RESPIRATORY denies dyspnea, cough, wheezing or hemoptysis. CARDIOVASCULAR negative for palpitations, chest pain, orthopnea, PND, peripheral edema, syncope or claudication. ABDOMINAL denies ulcer disease, hematochezia or melena. MUSCULOSKELETAL denies any history of arthritic symptoms or back problems. NEUROLOGICAL denies any history of recurrent strokes, headaches, TIA, or seizure disorder. PSYCHIATRIC denies any history of depression, substance abuse or change in cognitive functions. ENDOCRINE denies any history of thyroid disease or diabetes mellitus. HEMATOLOGICAL/IMMUNOLOGIC denies any food allergies, seasonal allergies, bleeding disorders. PHYSICAL EXAMINATION VITAL SIGNS: Blood Pressure: Pulse- .00/min. Weight- 170.00 lbs. Height- .00 Temperature- .00 CONSTITUTIONAL cooperative, alert and oriented,well developed, well [...] time, person and place. MEDICATIONS UPDATED/STARTED TODAY: Fish Oil 1,000 mg Capsule, 1 p.o. daily, 0 MEDICATIONS REFILLED/STOPPED TODAY: Daily Multivitamin Tablet 1 p.o. daily 0 Physician Order, Magnesium Oxide 250 Mg Tablet 1 p.o. daily 0 Physician Order, Fish Oil 1000mg 1 p.o. q.d. 0 Medication Change, Magnesium Oxide 250 mg Tablet 1 p.o. q.d. 0 Medication Change and Daily Multivitamin Tablet 1 p.o. q.d. 0 Medication Change ASSESSMENT/RECOMMENDATION: Mrs. Greene is doing well symptomatically. Her vitals were stable and she is losing weight intentionally. Overall, she is doing very well. She does not take any prescription medications except simvastatin. I have asked her to return to your office for a routine physical annually. If she continues to do well she can return for a routine Cardiology follow up in about oneyear. It is my pleasure to participate in the care of this patient. If you have any questions, please do not hesitate to contact me. TODAYS ORDERS 1. Return Visit 1 year with Clarice Rizzo 2. Return Visit 2 year with me Kirti Landry M.D. documented in this encounter Plan of Treatment Not on file documented as of this encounter Visit Diagnoses Not on filedocumented in this encounter Care Teams Performance Manager Relationship Specialty Start Date End Date Chelsea Rudolph MD [address] [place] [id number] PCP - General 09/09/03 01/09/15 [place] [address] [place] [address] [id number] PCP - General Family Practice 01/10/15 Kirti Landry MD Assigned Heart and Vascular Provider 09/02/20 01/11/23 Cristal Terry PA-C [address] [place] [id number] Physician Diabetes Manager Cardiovascular Disease 05/10/23 Cristal Terry PA-C [address] [place] [id number] Assigned Heart and Vascular Provider 08/24/23 documented as of this encounter
--- OUTSIDE RECORDS SUMMARY | 2024-04-22 09:31 | XMS_ITS | Encounter Summary ---
Author Organization [facility] Address [address] [place] [address]. [place] [address] Care Team Providers Care Database Security Administrator Name Role Phone Alfonso Jin MD Primary Care Provider Anand Echevarria MD Primary Care Provider Kirti Landry MD Unavailable Unavailable Cristal Terry PA-C Unavailable [phone] Cristal Terry PA-C Unavailable [phone] Encounter Details Date Type Department Care Team (Late st Contact Info) Description 08/08/2004 Office Visit-[facility] [address] [place] [phone] Unknown, DoctorMD Social History Tobacco Use Types Packs/Day Years [...] as of this encounter Progress Notes * Unknown, MD Jae - 08/11/2004 7:25 AM CDT Progress Note Created by: Shawna Mayes M.D. DATE: 08/08/2004 JINA GREENE DATE OF : 1945 AGE: [age] years old Referring Physician: ALFONSO JIN Referring Clinic: [facility] CURRENT DIAGNOSES 1. - Shortness of Breath, 786.05 2. - Hypercholesterolemia, 272.0 3. - Tachycardia, 785.0 ALLERGIES NKA MEDICATIONS (including any changes made today) 1. Lipitor 10 mg, 1 p.o. q.d. 2. Premarin 0.3 mg, 1 p.o. q.d. CHIEF COMPLAINTS Referred by pmd HISTORY OF PRESENT ILLNESS I had the pleasure of seeing your patient, Jina Greene, at the [facility] in consultation today. As you know, she is a 58-year-old woman with cardiac risk factors of age, postmenopausalstate and hyperlipidemia. The patient tells me that she has had problems with tachyarrhythmias for the last 30 years, and usually with vagal maneuvers she was able to terminate these episodes of rapid heart rhythm. She tells me she has not had cardiac testing in the past. Over the last couple of weeks, she has been having more problems with palpitations and fast heart rhythms. Last week she had an episode lasting two and one-half hours. [facility]ia had [facility]. She was given propranolol to take on an as-neede d basis and she has not ended up taking any of this medication. She tells me that over the last three to four days she has had fast heart rhythms lasting only for about 20 seconds each time. She denies any problems with lightheadedness. She has not had any pre-syncopal or syncopal-type symptoms. She also denies any problems with paroxysmal nocturnal dyspnea, orthopnea or pedal edema. 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 She has not had any problems with shortness of breath at rest; however, she does feel that she is having more dyspnea on exertion. The patient also describes vague chest discomfort, which at times can accompany her shortness of breath. She has no radiation of her discomfort to her neck, arm, back or abdominal area. She has not had any stress testing in the past. Her thyroid function was checked in the Emergency Room and it was found to be within normal limits. Her last fasting lipid profile is from 07/27, at which time her total cholesterol was 189 with triglycerides of 129, HDL of 39 and LDL of 124. She tells me she has been on Lipitor for approximately two years. The patient has never smoked. She has no history of hypertension. She is adopted and has no family history of premature coronary artery disease. She tells me that her mother lived to the age of95 and was in good health other than having diabetes mellitus. She has a maternal uncle who ofa myocardial infarction at an older age. Mrs. Greene is postmenopausal. She is on low-doses of Premarin at 0.3 mg p.o. q.d. PAST HISTORY Past Medical Illnesses: hypercholesterolemia, diverticulitis, fibroids, thyroiditis Past Cardiac Illnesses: tachyarhythmia x 30 years Surgical Procedures: tonsil and adenoidectomy, total hysterectomy, s/p BSO FAMILY HISTORY: Family - adopted; CARDIAC RISK FACTORS Tobacco Abuse: negative; Family History of Heart Disease: negative; Hyperlipidemia: positive; Hypertension: negative; Diabetes Mellitus: negative; Prior History of Heart Disease: negative; Obesity:negative; Sedentary Life Style:negative; Age:positive; Menopausal:positive SOCIAL HISTORY Alcohol Use - does not use alcohol; Smoking - does not smoke; Diet - regular diet; Exercise - some exercise; 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 INTEGUMENTARY denies any change in hair or nails, rashes, or skin lesions. EYES denies diplopia, history of glaucoma or visual field defects. EARS, NOSE, THROAT, MOUTH denies any hearing loss, epistaxis, hoarseness or difficulty speaking. RESPIRATORY dyspnea, dyspnea with exertion CARDIOVASCULAR palpitations, chest pressure ABDOMINAL denies ulcer disease, hematochezia or melena. MUSCULOSKELETAL chronic back pain NEUROLOGICAL denies any history of recurrent strokes, headaches, TIA, or seizure disorder. PSYCHIATRIC denies any history of depression, substance abuse or change in cognitive functions. ENDOCRINE denies any history of hyperlipidemia, thyroid disease or diabetes mellitus. HEMATOLOGICAL/IMMUNOLOGIC denies any food allergies, seasonal allergies, bleeding disorders. PHYSICAL EXAMINATION VITAL SIGNS: Blood Pressure: 124/80 Sitting, Left arm, regular cuff Pulse- 68.00/min. Weight- 176.00 lbs. Height- 63.00 Temperature- .00 CONSTITUTIONAL cooperative, alert and oriented,well developed, well nourished, in no acute distress. SKIN warm and dry to touch, no apparent skin lesions, or masses noted. HEAD normocephalic, atraumatic EYES Pupils equal and round, conjunctivae and lids unremarkable, sclera white, no xanthalasma ENT no pallor or cyanosis, dentition good NECK carotid pulses are full and equal bilaterally, JVP normal, no carotid bruit, no thyromegaly CHEST normal symmetry, no tenderness to palpation, normal respiratory excursion, no intercostal retraction, no use of accessory muscles, clear to auscultation and percussion. CARDIAC regular rhythm, S1 normal, S2 normal, No S3 or S4, Apical impulse not displaced, no murmurs, gallops or rubs detected. ABDOMEN abdomen soft, bowel sounds normoactive, no masses, no hepatosplenomegaly, non- tender, no bruits PERIPHERAL PULSES pulses full and equal in all extremities, no bruits auscultated. EXTREMITIES & BACK no deformities, clubbing, cyanosis, erythema or edema observed. There are no spinal abnormalities noted. Normal muscle strength and tone. LYMPHATICS no lymphadenopathy PSYCHIATRIC oriented to time, place, and person, no difficulties with speech or language, normal memory NEUROLOGICAL no gross motor deficits noted, affect appropriate, oriented to time, person and place. MEDICATIONS UPDATED TODAY: Lipitor 10 mg, 1 p.o. q.d., DIRECTED Premarin 0.3 mg, 1 p.o. q.d., DIRECTED IMPRESSIONS/PLAN Jina Greene is a 58-year-old woman with cardiac risk factors of age, postmenopausal state and hyperlipidemia. She presents with history of tachyarrhythmias for the last 30 years. Her rhythm disturbance had been dormant, but over the last few weeks she has been having more problems with fast heart rhythms. She had an episode that lasted for two and one-half hours, which prompted her to go to [facility] Emergency Room. The patient has never had an ischemic assessment and has not had evaluation for structural heart disease. I have scheduled her for a transthoracic echocardiogram to assess her chamber sizes and evaluate for any valvular pathology. I have also scheduled her for a nuclear stresstest to evaluate if ischemia is the etiology of her arrhythmia. By her description, it sounds like she has had difficulties with supraventricular tachycardia. Her episodes could be terminated with vagal maneuvers; however, given the fact that she is getting older, I am concerned that she could poten tially be having paroxysmal atrial fibrillation. I did fit her with an event monitor today and toldher to press the button if she has any problems with palpitations over the next month. We hopefullywill be able to see exactly what is causing her palpitations and treat that accordingly. I told herto not take the propranolol as it could mask some of her arrhythmias. It is also not a good idea totake propranolol on a p.r.n. basis as it could potentially cause rebound hypertension and tachycardia. I will plan to see the patient after the aforementioned tests have been completed. It was my pleasure to participate in the care of this very interesting lady. If you have any questions at all regarding her Cardiology Clinic visit today, please do not hesitate to contact me. TODAYS ORDERS 1. Treadmill Nuclear Study 1 week 2. 2D, color flow, doppler 1 week; same day as stress test 3. Event Recorder Today 4. Return Visit 3 weeks Shawna Mayes M.D. Electronically signed by [facility] [place], [facility] Data Conversion at 03/26/2014 1:12 AM CDT documented in this encounter Plan of Treatment Not on file documented as of this encounter Visit Diagnoses Not on filedocumented in this encounter Care Teams Database Security Administrator Relationship Specialty Start Date End Date Alfonso Jin MD [address] [place] [address] [id number] PCP - General 09/09/03 01/09/15 Anand Echevarria MD [address] [place] [id number] PCP - General Family Practice 01/10/15 Kirti Landry MD Assigned Heart and Vascular Provider 09/02/20 01/11/23 Cristal Terry PA-C [address] [place] [id number] Physician Hand Endband Cutter Cardiovascular Disease 05/10/23 Cristal Terry PA-C [address] [place] [id number] Assigned Heart and Vascular Provider 08/24/23 documented as of this encounter
--- OUTSIDE RECORDS SUMMARY | 2024-04-22 09:31 | XMS_ITS | Clinical Summary ---
Author Organization [facility] Address [place], [place] [address] Care Team Providers Care First Aid Instructor Name Role Phone Clinic, No Pcp Or Primary Care Provider Unavaila ble Allergies No known active allergies Medications Medication Sig Dispensed Refills Start Date End Date Status flecainide (TAMBOCOR) 100 mg tablet Take 1/2 tablet ( 50mg) twice daily 05/25/2020 Active simvastatin (ZOCOR) 40 mg tablet Take 40 mg by mouth once daily. Active meloxicam 15 mg tablet 01/22/2021 Ac tive Encounters Date Type Department Care Team Description 04/13/2024 Orders Only [facility] Scanner 1 scan: (1-Ord) INCOMING RECORDS-[facility], [facility], 04/13/2024 from Last 3 Months Family History * Patient is adopted Medical History Relation Name Comments Diabetes Mother Heart attack Mother of heart a ttack Relation Name Status Comments Mother Social History Tobacco Use Types Packs/Day Years Used Date Smoking Tobacco: Never Smokeless Tobacco: Never Tobacco Cessation:Counseling Given: Yes Alcohol Use Standard Drinks/Week Comments Never 0 (1 standard drink = 0.6 oz pur e alcohol) Sex and Gender Information Value Date Recorded Sex Assigned at Not on file Gender Identity Not on file Sexual Orientation Not on file Obstetrics History Last Filed Vital Signs Vital Sign Reading Time Taken Comments Blood Pressure 147/87 03/14/2021 2:57 PM CDT tow er Pulse 74 03/14/2021 2:57 PM CDT Temperature - - Respiratory Rate - - Oxygen Saturation 97% 03/14/2021 2:57 PM CDT Inhaled Oxygen Concentration - - Weight 80.7 kg (178 lb) 03/14/2021 2:57 PM CDT Height - - Body Mass Index - - Plan of Treatment Upcoming Encounters Date Type Department Care Team (Late st Contact Info) Description 05/26/2024 2:45 PM CDT Office Visit [facility] [address] [place] [address] Robert Acuña DPM [address] [place] [address] Health Maintenance Due Date Last Done Comments Tdap 1954 Depression screening for age 12+ 1955 BMI (ht and wt on same day) for age 18+ 1961 Tetanus booster 1963 Zoster (shingles) series for age 50+ (1 of 2) 08/20/19 93 DEXA/DXA scan for age 65+ 2008 Medicare Wellness for age 65+ 2008 Pneumococcal series for age 65+ (1 of 1 - PCV) 008 COVID-19 vaccine series ( - 2022-24 season) 3 Influenza for age 65+ 07/12/2024 Procedures Procedure Name Priority Date/Time Associated Diagnosis Comments SCAN CORRESP-DIAGNOSTICS 04/13/2024 12:00 AM CDT from Last 3 Months Results * SCAN CORRESP-DIAGNOSTICS (04/13/2024 12:00 AM CDT) Scanner OTHER from Last 3 Months Care Teams First Aid Instructor Relationship Specialty Start Date End Date Clinic, No Pcp Or . PCP - General 02/13/21
--- OUTSIDE RECORDS SUMMARY | 2024-04-22 09:31 | XMS_ITS | Encounter Summary ---
Author Organization [place] Address [address] [place] [address]. [place] [address] Care Team Providers Care Pharmacogeneticist Name Role Phone Alfonso Jin MD Primary Care Provider Anand Echevarria MD Primary Care Provider [phone] Kirti Landry MD Unavailable Unavailable Cristal Terry PA-C Unavailable [phone] Cristal Terry PA-C Unavailable [phone] Encounter Details Date Type Department Care Team (Late st Contact Info) Description 09/26/2004 Office Visit-[facility] [address] [place] [address] Unknown, DoctorMD Social History Tobacco [...] Progress Notes * Unknown, MD Jae - 09/29/2004 1:55 PM CST Progress Note Created by: Hossein Echevarria M.D. DATE: 09/26/2004 JINA GREENE DATE OF : 1945 AGE: [age] years old Referring Physician: ALFONSO JIN Referring Clinic: [facility] CURRENT DIAGNOSES 1. - Arrhythmia, 427.9 2. - Ventricular tachycardia, 427.1 3. - Tachycardia, 785.0 4. - Shortness of Breath, 786.05 5. - Hypercholesterolemia, 272.0 ALLERGIES NKA MEDICATIONS (including any changes made today) 1. Lipitor 10 mg, 1 p.o. q.d. 2. Premarin 0.3 mg, 1 p.o. q.d. CHIEF COMPLAINTS F/u HISTORY OF PRESENT ILLNESS: Mrs. Greene is a very pleasant 59-year-old lady referred to me by my colleague, Dr. Shawna Mayes for consideration of EP study and radiofrequency ablation. Briefly, Mrs. Greene's chief complaint is palpitations. She has had brief episodes of palpitations for approximately 30 years. There is no definite triggering factor. Initially her episodes have been fairly infrequent and she could usually abort them by vagal maneuvers like grunting or bearing down. They typically would not last more than 5-15 minutes and they are never associated with syncope, although she was lightheaded on several occasions. However, she had a prolonged episode of palpitations of similar quality without a definite triggering event in July of this year. She was walking in the grass and then developed the sensation ofrapid heartbeat that lasted about two and one half hours. It was associated with shortness of breath, chest heaviness, and lightheadedness. By the time she decided to go to the Emergency Room the tachycardia had terminated. She has therefore seen her primary care physician, Dr. Jin and was referred to Dr. Mayes.Dr. Mayes ordered an echocardiogram which was completely normal, as well as a nuclear stress perfusion study which was likewise unremarkable. Event monitoring was also obtained and a single episode of probably ventricular tachycardia with a cycle length about 420 msec of monomorphic QRS morphology and 11 beat duration was documented. The patient tells me that she transmitted another episode on 09/05. However, this is not documented in the [employer] system. Mrs. Greene does not have any structural heart disease. She never had a known myocardial infarction. When her heartbeat is normal she is not bothered by chest pain, chest discomfort, or undue exertional dyspnea. She also denies lower extremity edema and never fainted. She is not aware of any family history of sudden cardiac . She has hyperlipidemia but no other risk factors for coronary artery disease except for age and postmenopausal state. Her electrocardiogram from today is essentially unremarkable. She has known pathology for Q waves in inferior and lateral leads. On physical exam, the patient has a palpable right thyroid nodule. She tells me this has been evaluated in the past by her primary care physician. . PAST HISTORY Past Medical Illnesses: hypercholesterolemia, diverticulitis, fibroids, thyroiditis Past Cardiac Illnesses: tachyarhythmia x 30 years Surgical Procedures: tonsil and adenoidectomy, total hysterectomy, s/p BSO Cardiology Procedures-Noninvasive: myocardial perfusion imaging (Nuclear) August 2004, echocardiogram August 2004 Left Ventricular Ejection Fraction: 74% Nuclear Results: No exercise induced arrhythmias. <B><FONT FACE=System> CARDIAC RISK FACTORS Tobacco Abuse: negative; Family [...] ; REVIEW OF SYSTEMS GENERAL weight gain INTEGUMENTARY denies any change in hair or [...] disorders. PHYSICAL EXAMINATION VITAL SIGNS: Blood Pressure: 144/84 Sitting, Left arm, regular cuff Pulse- 68.00/min. Weight- 179.00 lbs. Height- 63.00 Temperature- .00 CONSTITUTIONAL cooperative, [...] no bruits auscultated. EXTREMITIES & BACK no LE edema PSYCHIATRIC oriented to time, place, and person, no difficulties with speech or language, normal memory NEUROLOGICAL no gross motor deficits noted, affect appropriate, oriented to time, person and place. MEDICATIONS UPDATED TODAY: IMPRESSIONS/PLAN </B><FONT FACE=Supervisor Mapping New> This is a very pleasant 59-year-old lady a longstanding history of palpitations and one prolonged sustained episode lasting more than two hours which was highly symptomatic. I do not have any electrocardiogram documented during any of the sustained events. She, however, did record a nonsustained run of monomorphic wide-complex tachycardia, probably VT. 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 SVT with aberrancy or other form of VT would be somewhat less likely. I think the best way to proceed at this moment would be to perform an EP study and try to induce the patient's clinical tachycardia. It is quite likely we would be able to perform radiofrequency ablation during this same session. I talked to the patient about this and she wants to proceed. I have told her for RVOTVT, as for most of the common forms of SVT, the success rate would be between 70-85%and the risk of serious complication would be 1 or 2 in 100. I specifically did talk about the riskof iatrogenic groin injury and cardiac tamponade due to pericardiocentesis. We also talked about the less likely possibility that left-sided radiofrequency ablation may be needed for dehiscent type left-sided VT in which case there would be a slight risk of stroke associated with the procedure. She understands and she wants to proceed. We will tentatively schedule the procedure in the next two weeks. Again, I greatly appreciate the opportunity to participate in the care of this delightful lady. Please do not hesitate to contact me with any questions. I will relay my findings to Dr. Mayes in person.<B><FONT FACE=System> TODAYS ORDERS 1. Ablation of VT HABLVT 2. 12 Lead EKG Today Hossein Echevarria M.D. documented in this encounter Plan of Treatment Not on file documented as of this encounter Visit Diagnoses Not on filedocumented in this encounter Care Teams Pharmacogeneticist Relationship Specialty Start Date End Date Alfonso Jin MD [address] [place] [address] [id number] PCP - General 09/09/03 01/09/15 Anand Echevarria MD [address] [place] [address] [id number] PCP - General Family Practice 01/10/15 Kirti Landry MD Assigned Heart and Vascular Provider 09/02/20 01/11/23 Cristal Terry PA-C [address] [place] [id number] Physician Aircraft Refueler Cardiovascular Disease 05/10/23 Cristal Terry PA-C [address] [place] [id number] Assigned Heart and Vascular Provider 08/24/23 documented as of this encounter
--- OUTSIDE RECORDS SUMMARY | 2024-04-22 09:31 | XMS_ITS | Encounter Summary ---
Author Organization [place] Address [address] [place] [address]. [place] [address] Care Team Providers Care Certified Optician Name Role Phone Chelsea Rudolph MD Primary Care Provider Anand Echevarria MD Primary Care Provider [phone] Kirti Landry MD Unavailable Unavailable Cristal Terry PA-C Unavailable [phone] Cristal Terry PA-C Unavailable [phone] Encounter Details Date Type Department Care Team (Late st Contact Info) Description 10/29/2005 Office Visit-[facility] [address] [place] [address] Unknown, DoctorMD Social History Tobacco [...] Progress Notes * Unknown, MD Jae - 11/02/2005 12:18 PM CST Progress Note Created by: Hossein Echevarria M.D. DATE: 10/29/2005 JINA GREENE DATE OF : 1945 AGE: [age] years old Referring Physician: SELF,SELF CURRENT DIAGNOSES 1. - Atrial Fibrillation, 427.31 2. - Arrhythmia, 427.9 3. - Ventricular tachycardia, 427.1 4. - Shortness of Breath, 786.05 5. - Hypercholesterolemia, 272.0 6. - Tachycardia, 785.0 ALLERGIES NKA MEDICATIONS (including any changes made today) 1. Flecainide 50 mg, PO BID 2. Aspirin 325 mg, PO QD 3. Lipitor 10 mg, 1 p.o. q.d. CHIEF COMPLAINTS HISTORY OF PRESENT ILLNESS Mrs. Greene is a very pleasant 60-year-old lady whom I am seeing for follow-up of palpitations. Asdescribed in more detail in my prior note from November of this year, she has had episodes of palpitations with documented brief wide complex tachycardia on an event monitor. I performed an EP study with the suspicion that I would see RVOT VT but the patient actually did not have any inducible arrhythmia except for episodes of atrial fibrillation with rapid ventricular response which were symptomatic. Therefore, I started her on a low dose of flecainide which she takes at a dose of 50mg p.o. b.i.d. in which she tolerates well. She has been doing quite well over the last 11 months. She had only a single episode of palpitationin May that woke her in the middle of the night and lasted about 2 hours. She tells me that it wasdifferent from her prior episodes of palpitation in the sense that her heart beat was just regular. It is not completely clear whether the heart beat was completely irregular or whether she just felt skipped beats every minute. The patient is not certain of that herself. One way or the other, she did not have any associated symptoms and the symptoms subsided spontaneously. Mrs. Greene is doing quite well clinically. 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 She can certainly climb two flights of stairs without any difficulty whatsoever. She also denies any episodes of chest pain or chest discomfort. Shedenies any lower extremity edema and never fainted for any reason. Apart from the one episode described above, she does not have any palpitations on the flecainide. She is taking aspirin for prophylaxis. She went down from 325 to 81 over the last year. She is alsotaking atorvastatin at a dose of 10mg p.o. q.d. for her hyperlipidemia. She has recently changed physicians and lipids were acceptable within the last year. I am going to request the values from her primary physician. Otherwise, Mrs. Greene did not have any adverse medical events over the last year. She did receive a vaccination against the flu. Her blood pressure is borderline elevated today but she tells me that it is normal on multiple occasions in the past. PAST HISTORY Past Medical Illnesses: hypercholesterolemia, diverticulitis, fibroids, thyroiditis Past Cardiac Illnesses: tachyarhythmia x 30 years Surgical Procedures: tonsil and adenoidectomy, total hysterectomy, s/p BSO Cardiology Procedures-Noninvasive: myocardial perfusion imaging (Nuclear) August 2004, echocardiogram August 2004 Left Ventricular Ejection Fraction: 74% Nuclear Results: No exercise induced arrhythmias. CARDIAC RISK FACTORS Tobacco Abuse: negative; Family [...] with ; REVIEW OF SYSTEMS GENERAL weight gain, 1 lb, feels well, no change in exercise tolerance. INTEGUMENTARY denies any [...] abuse or change in cognitive functions. ENDOCRINE hyperlipidemia HEMATOLOGICAL/IMMUNOLOGIC denies any food allergies, seasonal allergies, bleeding disorders. PHYSICAL EXAMINATION VITAL SIGNS: Blood Pressure: 140/80 large cuff, L arm, siting Pulse- 72.00/min. Weight- 172.00 lbs. Height- .00 Temperature- .00 CONSTITUTIONAL cooperative, alert and oriented,well developed, well nourished, in no acute distress., mildly obese NECK carotid pulses are full and equal [...] displaced, no murmurs, gallops or rubs detected. EXTREMITIES & BACK no LE edema PSYCHIATRIC oriented to time, place, and person, no difficulties with speech or language, normal memory NEUROLOGICAL no gross motor deficits noted, affect appropriate, oriented to time, person and place. MEDICATIONS UPDATED TODAY: IMPRESSIONS/PLAN I have talked to her about the fact that most of the available date on the efficacy of aspirin in CVA prophylaxis in atrial fibrillation patients use 325mg q.d. of aspirin and she is willing to change the dose again. Otherwise, I have congratulated Mrs. Greene to her excellent symptomatic status. I do not see any reason to change her medication at this moment for single episodes of palpitation that was only mildly symptomatic within a year and I will plan to see her for a follow-up visit in one year or sooner if circumstances dictate. Should her episodes become more frequent, my next step would likely be to increase the flecainide dose to 100 b.i.d. Please do not hesitate to contact me with any questions. CONCLUSION: Palpitations probably paroxysmal atrial fibrillation. TODAYS ORDERS 1. Return Visit 1 year 2. Obtain Lipids Results from PMD Hossein Echevarria M.D. documented in this encounter Plan of Treatment Not on file documented as of this encounter Visit Diagnoses Not on filedocumented in this encounter Care Teams Certified Optician Relationship Specialty [place] [address] [place] [address] [id number] PCP - General 09/09/03 01/09/15 Anand Echevarria MD [address] [place] [address] [id number] PCP - General Family Practice 01/10/15 Kirti Landry MD Assigned Heart and Vascular Provider 09/02/20 01/11/23 Cristal Terry PA-C [address] [place] [id number] Physician Psych Assistant Cardiovascular Disease 05/10/23 Cristal Terry PA-C [address] [place] [id number] Assigned Heart and Vascular Provider 08/24/23 documented as of this encounter
--- OUTSIDE RECORDS SUMMARY | 2024-04-22 09:31 | XMS_ITS | Encounter Summary ---
Author Organization [place] Address [address] [place] [address]. [place] [address] Care Team Providers Care Assistant Manager Name Role Phone Chelsea Rudolph MD Primary Care Provider Anand Echevarria MD Primary Care Provider [phone] Kirti Landry MD Unavailable Unavailable Cristal Terry PA-C Unavailable [phone] Cristal Terry PA-C Unavailable [phone] Encounter Details Date Type Department Care Team (Late st Contact Info) Description 11/09/2008 Office Visit-[facility] [address] [place] [phone] Kirti Landry MD Social History Tobacco Use [...] Progress Notes * Kirti Landry MD - 12/09/2008 2:03 PM CST Progress Note Created by: Kirti Landry M.D. DATE: 11/09/2008 JINA GREENE DATE OF : 1945 AGE: [age] years old Referring Physician: SELF, SELF CURRENT DIAGNOSES 1. - Atrial Fibrillation, 427.31 2. - Arrhythmia, 427.9 3. - Ventricular tachycardia, 427.1 4. - Shortness of Breath, 786.05 5. - Hypercholesterolemia, 272.0 6. - Tachycardia, 785.0 ALLERGIES NKA MEDICATIONS (prior to changes made today) 1. Aspirin Child 81 mg, 1 p.o. q.d. 2. Simvastatin 20 mg, 1 p.o. q.d. CHIEF COMPLAINTS HISTORY OF PRESENT ILLNESS I saw Mrs. Greene for follow-up of ventricular tachycardia. This 63-year-old white female with no apparent structural heart disease presented with palpitations. She had an EKG event monitor that documented nonsustained monomorphic VT. Subsequently she underwent EP study by Dr. Echevarria who did not ind uce any ventricular tachycardia. She had inducible atrial fibrillation during the procedure that required DC cardioversion. After that she was treated with Flecainide. When I first saw her around November of 2006 the patient decided to stop Flecainide therapy because she seemed to be doing reasonably well. Her last visit was October of 2007 during that time she still feels occasional palpitation. Particularly she reported one episode of rapid heart racing while she was at rest that lasted for about 2 hours. Over the last year she had almost daily skipped heartbeats during the summer time. Currently she has occasional skipped heartbeats that are apparent to her but happen only on an occasional basis. Most importantly she had another episode of rapid heart racing during the summer. She was sitting and her heart rate was about 180 beats per minute. Her heart rate stopped racing in about 2 hours. Because she felt palpitation only with no dizziness, shortness of breath or chest pain, she did not go to the emergency room. She currently does not take any antiarrhythmic drug. On examination, the blood pressure was 120/80, body weight 182 pounds, heart rate 78 beats per minute. The head and neck examination was unremarkable. The lungs were clear. The cardiac rhythm was regular and the heart sounds were normal with no murmur. The abdominal examination showed mild obesity.There was no pedal edema. PAST HISTORY Past Medical Illnesses: hypercholesterolemia, diverticulitis, fibroids, thyroiditis Past Cardiac Illnesses: tachyarhythmia x 30 years, atrial fibrillation Surgeries/Procedures - General: tonsil and adenoidectomy, total hysterectomy, s/p BSO Cardiology Procedures-Noninvasive: myocardial perfusion imaging (Nuclear) August 2004, echocardiogram August 2004, event monitor , treadmill Oct 2004 Left Ventricular Ejection Fraction: 74% Nuclear Results: No exercise induced arrhythmias. 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 PHYSICAL EXAMINATION VITAL SIGNS: Blood Pressure: 120/80 Sitting, Left arm, regular cuff Pulse- 78.00/min. Weight- 182.00 lbs. Height- 63.00 Temperature- .00 CONSTITUTIONAL cooperative, [...] time, person and place. MEDICATIONS UPDATED/STARTED TODAY: ASSESSMENT AND PLAN: Mrs. Greene still has recurrent palpitations. Most of the time her palpitations appear to be due to PVCs. She has documented nonsustained VT by EKG event monitor. Her long duration of tachycardia at a rate of 180 beats per minute remains a concern and potentially could be lifethreatening. For that reason I recommended a repeat EP study. Because she did not have inducible VT with program stimulation, I will plan to give her isoproterenol infusion without sedation. If we can produce PVCs or VT from the RV outflow tract then we can put her under sedation and procedure withcatheter insertion and ablation. I had an extensive discussion with the patient regarding the benefit and the risk of the procedure today. She has agreed for the EP study and possible ablation that will be scheduled in the next few months. For the time being I do not recommend medications since Flecainide did not apparently treat her condition completely successfully. TODAYS ORDERS 1. Ablation of PVC/VT HABLVT Kirti Landry M.D. documented in this encounter Plan of Treatment Not on file documented as of this encounter Visit Diagnoses Not on filedocumented in this encounter Care Teams Assistant Manager Relationship Specialty Start Date End Date Chelsea Rudolph MD [address] [place] [id number] PCP - General 09/09/03 01/09/15 Anand Echevarria MD [address] [place] [id number] PCP - General Family Practice 01/10/15 Kirti Landry MD Assigned Heart and Vascular Provider 09/02/20 01/11/23 Cristal Terry PA-C [address] [place] [id number] Physician Transportation Museum Helper Cardiovascular Disease 05/10/23 Cristal Terry PA-C [address] [place] [id number] Assigned Heart and Vascular Provider 08/24/23 documented as of this encounter
--- OUTSIDE RECORDS SUMMARY | 2024-04-22 09:31 | XMS_ITS | Encounter Summary ---
Author Organization [facility] Address [address] [place] [address]. [place] [address] Care Team Providers Care Hand Edger Name Role Phone Alfonso Jin MD Primary Care Provider Anand Echevarria MD Primary Care Provider [phone] Kirti Landry MD Unavailable Unavailable Cristal Terry PA-C Unavailable [phone] Cristal Terry PA-C Unavailable [phone] Encounter Details Date Type Department Care Team (Late st Contact Info) Description 10/16/2004 Office Visit-[facility] [address] [place] [address] Unknown, DoctorMD Social History Tobacco [...] Progress Notes * Unknown, MD Jae - 10/17/2004 4:08 PM CST Progress Note Created by: Jackson Wells [id number] DATE: 10/16/2004 JINA GREENE DATE OF : 1945 AGE: [age] years old Referring Physician: ALFONSO JIN [facility] CURRENT DIAGNOSES 1. - Arrhythmia, 427.9 2. - Ventricular tachycardia, 427.1 3. - Tachycardia, 785.0 4. - Shortness of Breath, 786.05 5. - Hypercholesterolemia, 272.0 ALLERGIES NKA MEDICATIONS (including any changes made today) 1. Lipitor 10 mg, 1 p.o. q.d. CHIEF COMPLAINTS Followup of - Arrhythmia HISTORY OF PRESENT ILLNESS Ms. Greene is a pleasant 59-year-old woman here to discuss her palpitations. She reports that she has had brief episodes of palpitations for approximately 30 years. She does not note a trigger and they have been easily aborted with vagal maneuvers. Initially they were fairly infrequent and would last no more than 5- 15 minutes, never associated with syncope or chest discomfort although she has been somewhat light-headed on several occasions. In July of this year, she noted a prolonged episode of palpitations. She was walking in the grass and developed a sensation of rapid heart beats that last about 21/2 hours. It was associated with shortness of breath, some chest heaviness, and light-headedness. By the time she sought medical attenuation her tachycardia had terminated. She was seenby Dr. Mayes who ordered an echocardiogram which was completely normal. A nuclear stress perfusion study was also unremarkable. An event monitor obtained a single episode of probable ventricular tachycardia with a cycle length of about 420msec. of monomorphic QRS morphology and 11 beat duration was documented. Mrs. Greene does have a history of hyperlipidemia but no other cardiac risk factors with the except of her age and postmenopausal state. Jina met with Dr. Echevarria on September 26 and talked about the possibility of an EP study with possible radiotracer ablation. He explained the procedure to her at length including the risks and benefits and she is interested in proceeding. This has been scheduled for Monday October 18, 2004. 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 <B><FONT FACE=System> FAMILY HISTORY: Family - adopted; CARDIAC RISK [...] lives with ; REVIEW OF SYSTEMS GENERAL feels well, no change in exercise tolerance. INTEGUMENTARY denies any change in hair or nails, rashes, or skin lesions. EYES denies diplopia, history of glaucoma or visual field defects. EARS, NOSE, THROAT, MOUTH denies any hearing loss, epistaxis, hoarseness or difficulty speaking. RESPIRATORY denies dyspnea, snoring, cough, wheezing or hemoptysis. CARDIOVASCULAR little palpitations, minor ABDOMINAL denies ulcer disease, hematochezia or melena. MUSCULOSKELETAL chronic back pain NEUROLOGICAL denies any history of recurrent strokes, headaches, TIA, or seizure disorder. PSYCHIATRIC denies any history of depression, substance abuse or change in cognitive functions. ENDOCRINE hyperlipidemia HEMATOLOGICAL/IMMUNOLOGIC denies any food allergies, seasonal allergies, bleeding disorders. PHYSICAL EXAMINATION VITAL SIGNS: Blood Pressure: 146/92 Sitting, Left arm, regular cuff 130/85 Retaken by pa Pulse- 66.00/min. Weight- 178.20 lbs. Height- 63.00 Temperature- .00 CONSTITUTIONAL cooperative, [...] time, person and place. MEDICATIONS UPDATED TODAY: MEDICATION STOPPED TODAY: Premarin 0.3 mg IMPRESSIONS/PLAN </B><FONT FACE=Front Office Representative New>Jina Greene is a pleasant 59-year-old woman here for follow-up of her palpitations. Dr. 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 We again talked about the risks of atherogenic groin injury, cardiac tamponade due to pericardiocentesis as well as a slight risk of stroke. She understands these risks and is willing to proceed. She understands that she will need to have transportation and will present to [facility] at 7 a.m. in a fasting state. <B><FONT FACE=System> Jackson Wells documented in this encounter Plan of Treatment Not on file documented as of this encounter Visit Diagnoses Not on filedocumented in this encounter Care Teams Hand Edger Relationship Specialty Start Date End Date Alfonso Jin MD [address] [place] [address] [id number] PCP - General 09/09/03 01/09/15 Anand Echevarria MD [address] [place] [address] PCP - General Family Practice 01/10/15 Kirti Landry MD Assigned Heart and Vascular Provider 09/02/20 01/11/23 Cristal Terry PA-C [address] [place] [id number] Physician Manager Ambulatory Cardiovascular Disease 05/10/23 Cristal Terry PA-C [address] [place] [id number] Assigned Heart and Vascular Provider 08/24/23 documented as of this encounter
--- OUTSIDE RECORDS SUMMARY | 2024-04-22 09:31 | XMS_ITS | Encounter Summary ---
Author Organization [facility] Address [address] [place] [address]. [place] [address] Care Team Providers Care Teacher Physically Impaired Name Role Phone Chelsea Rudolph MD Primary Care Provider Anand Villarreal MD Primary Care Provider [phone] Kirti Landry MD Unavailable Unavailable Cristal Terry PA-C Unavailable [phone] Cristal Terry PA-C Unavailable [phone] Encounter Details Date Type Department Care Team (Late st Contact Info) Description 01/27/2009 Office Visit-[facility] [address] [place] [phone] Kirti Landry MD Social History Tobacco Use [...] Progress Notes * Kirti Landry MD - 01/31/2009 10:56 AM CDT Progress Note Created by: Kirti Landry M.D. DATE: 01/27/2009 JINA GREENE DATE OF : 1945 AGE: [age] years old Referring Physician: ANAND VILLARREAL CURRENT DIAGNOSES 1. - Ventricular tachycardia, 427.1 2. - Shortness of Breath, 786.05 3. - Hypercholesterolemia, 272.0 4. - Tachycardia, 785.0 5. - Atrial Fibrillation, 427.31 6. - Arrhythmia, 427.9 ALLERGIES NKA MEDICATIONS (prior to changes made today) 1. Simvastatin 40 mg, 1 p.o. qHS 2. Calcium Carbonate and Vitamin D 600 mg-125 u, Dose/instruction 3. Fish Oil 1000mg, 1 p.o. q.d. 4. Magnesium Oxide 250 mg, 1 p.o. q.d. 5. Multivitamin Multiple Vitamins, 1 p.o. q.d. 6. Aspirin 81 mg, 1 p.o. daily CHIEF COMPLAINTS Per MD - follow up HISTORY OF PRESENT ILLNESS I had the pleasure of seeing Ms. Greene for follow up of atrial fibrillation. This 63-year-old white female underwent two separate EP studies several years apart for recurrent palpitations. She had easily inducible atrial fibrillation with an intracardiac recording suggesting origin of atrial fibrillation from the right pulmonary vein or the SVC. On December 10, 2008, she underwent an empiric ablation of the right pulmonary vein and SVC right atrial junction. After the ablation, she felt some short lasting palpitations in the first week. She was given an EKG event monitor with automatic recording for about one month. She did not have any ventricular tachycardia, and the automatic recording documented short runs of atrial tachycardia lasting for up to 18 beats per minute. After the first week, she has been doing very well with no further palpitations. At the present time, she has no fatigue, shortness of breath, or chest pain. She is not taking any antiarrhythmic drugs at this point. On examination, the blood pressure was 120/78. Body weight was 189 pounds. Heart rate was 82 beats per minute. The head and neck examination was unremarkable. The lungs were clear. The cardiac rhythmwas regular. The abdominal examination showed moderate obesity. There was no pedal edema. The EKG today showed sinus rhythm at 92 beats per minute. 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 PHYSICAL EXAMINATION VITAL SIGNS: Blood Pressure: 120/78 Sitting, Left arm, regular cuff Pulse- 82.00/min. Weight- 189.00 lbs. Height- 63.00 Temperature- .00 CONSTITUTIONAL cooperative, [...] time, person and place. MEDICATIONS UPDATED/STARTED TODAY: Aspirin 81 mg, 1 p.o. daily, #30 or #100 MEDICATIONS REFILLED/STOPPED TODAY: Warfarin Sodium 5 mg Take as Directed 0 Physician Order ASSESSMENT/RECOMMENDATION: Ms. Greene is doing well with no recurrent atrial fibrillation for the time being. The short lasting palpitations within the first week after ablation could be due to the inflammation process. For the time being, I do not recommend antiarrhythmic drugs and would suggest continued observation. The patient has been encouraged to exercise and lose weight in order to prevent future cardiovascular problems. If she continues to do well, I will see her for follow up in one year. It is my pleasure to participate in the care of this patient. If you have any questions, please do not hesitate to contact me. TODAYS ORDERS 1. Return Visit 1 year 2. 12 Lead EKG 1 year with visit Kirti Landry M.D. documented in this encounter Plan of Treatment Not on file documented as of this encounter Visit Diagnoses Not on filedocumented in this encounter Care Teams Teacher Physically Impaired Relationship Specialty [place] [address] [place] [address] PCP - General 09/09/03 01/09/15 Anand Villarreal MD [address] [place] [address] PCP - General Family Practice 01/10/15 Kirti Landry MD Assigned Heart and Vascular Provider 09/02/20 01/11/23 Cristal Terry PA-C [address] [place] [address] Physician Waste Collector Cardiovascular Disease 05/10/23 Cristal Terry PA-C [address] [place] [address] Assigned Heart and Vascular Provider 08/24/23 documented as of this encounter
--- OUTSIDE RECORDS SUMMARY | 2024-04-22 09:31 | XMS_ITS | Encounter Summary ---
Author Organization [facility] Address [address] [place] [address]. [place] [address] Care Team Providers Care Sheriff'S Officer Name Role Phone Alfonso Jin MD Primary Care Provider Anand Echevarria MD Primary Care Provider [phone] Kirti Landry MD Unavailable Unavailable Cristal Terry PA-C Unavailable [phone] Cristal Terry PA-C Unavailable [phone] Encounter Details Date Type Department Care Team (Late st Contact Info) Description 12/05/2004 Office Visit-[facility] [address] [place] [address] Unknown, DoctorMD Social History Tobacco [...] Progress Notes * Unknown, MD Jae - 12/07/2004 10:41 AM CST Progress Note Created by: Hossein Echevarria M.D. <B>DATE: 12/05/2004 JINA GREENE DATE OF : 1945 AGE: [age] years old Referring Physician: ALFONSO JIN Referring Clinic: [facility] CURRENT DIAGNOSES 1. - Atrial Fibrillation, 427.31 [...] Followup of - Arrhythmia HISTORY OF PRESENT ILLNESS: Mrs. Greene is a very pleasant 59-year-old lady whom I am seeing for afollow-up after an EP study in the beginning of October. The EP study was done because of episodesof palpitations and documented nonsustained wide complex tachycardia on an event monitor. While we initially expected a finding of RVOT VT, this was never induced and no AVNRT which was also a differential diagnosis. Nevertheless, during the EP study, the patient had several episodes of atrial fibrillation with rapid ventricular response that were symptomatic. It is conceivable that the event monitor could have recorded an episode of atrial fibrillation with aberrancy given the irregularity of the cycle length. At that time I started Mrs. Greene on a flecainide dose of 50mg p.o. b.i.d. She tolerated this well and subsequently underwent a treadmill exercise test to rule out proarrhythmia which was negative for this. Since the procedure she did not have any episode of palpitation. This represents a significant improvement compared to the time segment between July and October of 2004. She also did not experience any other side effects that would be attributable to the flecainide. Her exercise tolerance is good. She denies any chest pain, exertional or otherwise, syncope or lower extremity edema. Her echocardiogram and nuclear stress test were completely negative in the fall of . She did not experience any significant problems in the right groin vascular excision site. In addition to the flecainide, she is also taking aspirin 325mg p.o. q.d. for thromboembolic event prophylaxis with atrial fibrillation and Lipitor at a dose of 10mg p.o. q.d. PAST HISTORY Past Medical Illnesses: hypercholesterolemia, diverticulitis, fibroids, thyroiditis Past Cardiac Illnesses: tachyarhythmia x 30 years Surgical Procedures: tonsil and adenoidectomy, total hysterectomy, s/p BSO Cardiology Procedures-Noninvasive: myocardial perfusion imaging (Nuclear) August 2004, echocardiogram August 2004 Left Ventricular Ejection Fraction: 74% Nuclear Results: No exercise induced arrhythmias. <FONT FACE=System> REVIEW OF SYSTEMS GENERAL weight gain, 1 [...] disorders. PHYSICAL EXAMINATION VITAL SIGNS: Blood Pressure: 130/80 Sitting, Right arm, regular cuff Pulse- 62.00/min. Weight- 179.00 lbs. Height- 63.00 Temperature- .00 [...] rubs detected. EXTREMITIES & BACK no LE edema, no R groin hematoma or bruit PSYCHIATRIC oriented to time, place, and person, no difficulties with speech or language, normal memory NEUROLOGICAL no gross motor deficits noted, affect appropriate, oriented to time, person and place. MEDICATIONS UPDATED TODAY: Flecainide 50 mg, PO BID Aspirin 325 mg, PO QD IMPRESSIONS/PLAN <FONT FACE=Agricultural Researcher New>Her electrocardiogram from today shows normal sinus rhythm and is otherwise completely unremarkable and unchanged from 09/16/04. She does not have any QRS prolongation on this dose of flecainide. I congratulated Mrs. Greene to her symptomatic improvement. I do believe that there are episodes of atrial fibrillation with rapid ventricular response are the most likely underlying cause of her arrhythmia. I will plan to see her for a follow-up visit in one year or sooner if circumstances dictate. <FONT FACE=System> TODAYS ORDERS 1. Return Visit 1 year 2. 12 Lead EKG Today Hossein Echevarria M.D. documented in this encounter Plan of Treatment Not on file documented as of this encounter Visit Diagnoses Not on filedocumented in this encounter Care Teams Sheriff'S Officer Relationship Specialty Start Date End Date Alfonso Jin MD [address] [place] [address] PCP - General 09/09/03 01/09/15 [place] [address] [place] [address] [id number] PCP - General Family Practice 01/10/15 Kirti Landry MD Assigned Heart and Vascular Provider 09/02/20 01/11/23 Cristal Terry PA-C [address] [place] [id number] Physician Veterinarian Poultry Cardiovascular Disease 05/10/23 Cristal Terry PA-C [address] [place] [id number] Assigned Heart and Vascular Provider 08/24/23 documented as of this encounter
--- OUTSIDE RECORDS SUMMARY | 2024-04-22 09:31 | XMS_ITS | Encounter Summary ---
Author Organization [facility] Address [address] [place] [address]. [place] [address] Care Team Providers Care Staff Therapist Name Role Phone Chelsea Rudolph MD Primary Care Provider Anand Echevarria MD Primary Care Provider [phone] Kirti Landry MD Unavailable Unavailable Cristal Terry PA-C Unavailable [phone] Cristal Terry PA-C Unavailable [phone] Encounter Details Date Type Department Care Team (Late st Contact Info) Description 11/14/2006 Office Visit-[facility] [address] [place] [phone] Kirti Landry MD Social History Tobacco Use [...] Progress Notes * Kirti Landry MD - 11/25/2006 10:49 AM CST Progress Note Created by: Kirti Landry M.D. DATE: 11/14/2006 JINA GREENE DATE OF : 1945 AGE: [age] years old Referring Physician: SELF,SELF CURRENT DIAGNOSES 1. - Atrial Fibrillation, 427.31 2. - Arrhythmia, 427.9 3. - Ventricular tachycardia, 427.1 4. - Shortness of Breath, 786.05 5. - Hypercholesterolemia, 272.0 6. - Tachycardia, 785.0 ALLERGIES NKA MEDICATIONS (including any changes made today) 1. Aspirin Child 81 mg, 1 p.o. q.d. 2. Lipitor 10 mg, 1 p.o. q.d. CHIEF COMPLAINTS Annual HISTORY OF PRESENT ILLNESS I saw Mrs. Greene for followup of nonsustained wide QRS tachycardia with palpitations. This 61-year-old white female with no apparent structural heart disease presented with recurrent palpitations which were documented to be due to nonsustained wide QRS tachycardia in 2003. She had a negative EP study with no inducible tachycardia by Dr. Echevarria. Over the last two years she has been on a low dose of flecainide therapy. She has no recurrent palpitations of a sustained nature but she feels only occasional skipped heartbeats. She has no syncope, dizziness, or shortness of breath. She is currently on flecainide 50 mg p.o. q.d. for her arrhythmia. On examination her blood pressure was 126/84, body weight 178 pounds, pulse rate 72 beats per minute. The head and neck examination was unremarkable. The lungs were clear. The cardiac rhythm was regular. The abdominal examination showed mild obesity. There was no pedal edema. I reviewed her previous monitor tracing in 2003 which showed nonsustained monomorphic VT. Her echocardiogram showed normal ventricular size and systolic function. PAST HISTORY Past Medical Illnesses: hypercholesterolemia, diverticulitis, fibroids, thyroiditis Past Cardiac Illnesses: tachyarhythmia x 30 years Surgical Procedures: tonsil and adenoidectomy, total hysterectomy, s/p BSO Cardiology Procedures-Noninvasive: myocardial perfusion imaging (Nuclear) August 2004, echocardiogram August 2004 Left Ventricular Ejection Fraction: 74% Nuclear Results: No exercise induced arrhythmias. PHYSICAL EXAMINATION VITAL SIGNS: Blood Pressure: 126/84 Sitting, Left arm, regular cuff Pulse- 72.00/min. Weight- 178.00 lbs. Height- 63.00 Temperature- .00 CONSTITUTIONAL cooperative, [...] time, person and place. MEDICATIONS UPDATED TODAY: Aspirin Child 81 mg, 1 p.o. q.d., #90 Flecainide 50 mg, 1 p.o. q.d., 0 MEDICATION STOPPED TODAY: Flecainide 50 Mg IMPRESSIONS/PLAN This 61-year-old white female has a history of palpitations due to nonsustained monomorphic ventricular tachycardia. 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 However, I do not know if her problem has resolved. Overall, I doubt that the low dose of flecainide serves any therapeutic purpose at this time. The patient was given the option of continuing the low dose of flecainide versus discontinuing flecainide.She decided to stop flecainide for now. If she has recurrence of her arrhythmia she may resume the low dose of flecainide or come to see me for possible repeat EP study and ablation. She also changedher aspirin from 325 to 81 mg q.d. I tentatively scheduled her for a one year followup but the patient can cancel that appointment if she does not have further problems. On the other hand if she has early recurrence of her arrhythmia I may be able to see her earlier. TODAYS ORDERS 1. Return Visit 1 year Kirti Landry M.D. documented in this encounter Plan of Treatment Not on file documented as of this encounter Visit Diagnoses Not on filedocumented in this encounter Care Teams Staff Therapist Relationship Specialty Start Date End Date Chelsea Rudolph MD [address] [place] [address] PCP - General 09/09/03 01/09/15 Anand Echevarria MD [address] [place] [address] PCP - General Family Practice 01/10/15 Kirti Landry MD Assigned Heart and Vascular Provider 09/02/20 01/11/23 Cristal Terry PA-C [address] [place] [id number] Physician Maturity Checker Cardiovascular Disease 05/10/23 Cristal Terry PA-C [address] [place] [address] Assigned Heart and Vascular Provider 08/24/23 documented as of this encounter
--- OUTSIDE RECORDS SUMMARY | 2024-04-22 09:31 | XMS_ITS | Encounter Summary ---
Author Organization [place] Address Formerly [facility] [address] Care Team Providers Care Crosscutter Rolled Glass Name Role Phone Chelsea Rudolph MD Primary Care Provider Anand Villarreal MD Primary Care Provider [phone] Kirti Landry MD Unavailable Unavailable Cristal Terry PA-C Unavailable [phone] Cristal Terry PA-C Unavailable [phone] Encounter Details Date Type Department Care Team (Late st Contact Info) Description 01/10/2011 Office Visit-[facility] [address] [place] [address] Clarice De Leon, [employer] MAKER [employer]AL OPERATIONS MANAGER [address] [facility] [address] [place] [phone] Social History Tobacco Use Types Packs/Day Years [...] this encounter Progress Notes * Clarice Nuñez, SUPERVISOR CEREAL - 01/17/2012 9:40 AM CST Progress Note Created by: Clarice Nuñez N.P. DATE: 01/10/2011 #[id number] JINA GREENE DATE OF : 1945 AGE: [age] years old Referring Physician: ANAND VILLARREAL Referring Clinic: [facility] CURRENT DIAGNOSES 1. - Ventricular tachycardia, 427.1 [...] mg Tablet, 1 p.o. daily CHIEF COMPLAINTS Followup of - Atrial Fibrillation HISTORY OF PRESENT ILLNESS Ms. Greene is a delightful 65-year-old woman who I am having the pleasure of meeting today. She has a history of atrial fibrillation for which she underwent radiofrequency ablation back in November 2008. Since that time, she states that she has done very well. She has rare episodes of palpitations.She states that at best they last for several seconds. She continues to be very active. She has lost an additional 10 pounds from her visit last week. She is an active member of [employer] and has now achieved her lifetime goal. Overall, she states that she feels well. She denies any chest pain, orthopnea, PND, syncope, or peripheral edema. All other review of systems and past [...] or infarct, 10/14 No exercise induced arrhythmias FAMILY HISTORY: Family - adopted; CARDIAC RISK [...] with ; REVIEW OF SYSTEMS GENERAL feels well INTEGUMENTARY denies any change in hair or [...] disorders. PHYSICAL EXAMINATION VITAL SIGNS: Blood Pressure: 120/76Sitting, Left arm, regular cuff Pulse- 70.00/min. Weight- 161.00 lbs. Height- 63.00 Temperature- .00 CONSTITUTIONAL cooperative, [...] and equal bilaterally, JVP normal, no carotid bruit CHEST normal symmetry, no tenderness to palpation, [...] time, person and place. MEDICATIONS UPDATED/STARTED TODAY: IMPRESSIONS/PLAN In summary, Ms. Greene is a delightful 65-year-old woman with a history of atrial fibrillation forwhich she underwent an atrial fibrillation ablation back in November 2008. Since that time, she has done well. She had an echocardiogram last done back in 2003. She had a structurally sound heart. She is followed on a routine basis by Dr. Villarreal. There is an order for her to see Dr. Landry next year. I have encouraged her to contact us in the interim should there be any questions or concerns. As always, thank you for including us in the care of this patient. Please feel free to contact us in the interim should you have any questions or concerns regarding today's assessment and plan. Clarice Nuñez N.P. documented in this encounter Plan of Treatment Not on file documented as of this encounter Visit Diagnoses Not on filedocumented in this encounter Care Teams Crosscutter Rolled Glass Relationship Specialty Start Date End Date Chelsea Rudolph MD [address] [place] [id number] PCP - General 09/09/03 01/09/15 Anand Villarreal MD [address] [place] [address] PCP - General Family Practice 01/10/15 Kirti Landry MD Assigned Heart and Vascular Provider 09/02/20 01/11/23 Cristal Terry PA-C [address] [place] [id number] Physician Flattening Press Operator Cardiovascular Disease 05/10/23 Cristal Terry PA-C [address] [place] [id number] Assigned Heart and Vascular Provider 08/24/23 documented as of this encounter
--- OUTSIDE RECORDS SUMMARY | 2024-04-22 09:31 | XMS_ITS | Encounter Summary ---
Author Organization [place] Address [address] [place] [address]. [place] [address] Care Team Providers Care Net Developer Consultant Name Role Phone Chelsea Rudolph MD Primary Care Provider Anand Villarreal MD Primary Care Provider [phone] Kirti Landry MD Unavailable Unavailable Cristal Terry PA-C Unavailable [phone] Cristal Terry PA-C Unavailable [phone] Encounter Details Date Type Department Care Team (Late st Contact Info) Description 01/21/2012 Office Visit-[facility] [address] [place] [phone] Kirti Landry MD Social History Tobacco Use [...] Progress Notes * Kirti Landry MD - 01/22/2012 4:10 PM CDT Progress Note Created by: Kirti Landry M.D. DATE: 01/21/2012 JINA GREENE DATE OF : 1945 AGE: [age] years old Referring Physician: ANAND VILLARREAL Referring Clinic: [facility] CURRENT DIAGNOSES 1. - Syncope, 780.2 2. - Hypercholesterolemia, 272.0 3. - Tachycardia, 785.0 4. - Shortness of Breath, 786.05 5. - Ventricular tachycardia, 427.1 6. - Arrhythmia, 427.9 7. - Atrial Fibrillation, 427.31 ALLERGIES NKA MEDICATIONS (prior to changes made today) 1. Aspirin 81 mg Tablet, 1 p.o. daily 2. Calcium Carbonate and Vitamin D 600 mg-125 u, Dose/instruction 3. Fish Oil 1,000 mg Capsule, 1 p.o. daily 4. Simvastatin 40 mg Tablet, 1 p.o. qHS CHIEF COMPLAINTS HISTORY OF PRESENT ILLNESS I had the pleasure of seeing Ms. Greene for followup of atrial fibrillation ablation. This 66-year-old white female had catheter ablation of atrial fibrillation in November,. She did report someminor palpitations and the event monitor showed short-lasting atrial tachycardia, one to two seconds in duration. The patient has not taken any antiarrhythmic drug for the last year or two. Symptomatically, she feels rare episodes of short-lasting palpitations for seconds. She has not had any recurrent atrial fibrillation so far. The patient had a syncopal episode in early December of this year. Apparently she was suffering from gastroenteritis with diarrhea and nausea. She passed out while sitting on the toilet. Subsequent hospital evaluation showed no cardiac problems. She was discharged home with no change of her medications. She has been doing well since with no further problems. During today's examination the blood pressure was 104/64, body weight 164 pounds, and heart rate 84beats per minute. The lungs were clear and cardiac rhythm was regular. The heart sounds were normalwithout murmur. She had no pedal edema. Her EKG showed normal sinus rhythm. PAST HISTORY Past [...] or infarct, 10/14 No exercise induced arrhythmias 08/14 EF 74% by nuclear study and EF<GT>55% by Echo -Aug 2004 REVIEW OF SYSTEMS GENERAL event for review - feels well INTEGUMENTARY denies any change in [...] disorders. PHYSICAL EXAMINATION VITAL SIGNS: Blood Pressure: 104/64Sitting, Right arm, large cuff Pulse- 84.00/min. Weight- 164.00 lbs. Height- 63 BMI Measurement: 29 CONSTITUTIONAL [...] time, person and place. MEDICATIONS UPDATED/STARTED TODAY: ASSESSMENT/RECOMMENDATION: Ms. Greene is doing well with no recurrence of atrial fibrillation. Shestated that her occasional palpitations are rare and very short-lasting. She did not think the event monitor is capable of catching the arrhythmia because the infrequent occurrence. We therefore willnot treat her medically or perform any intervention. Her syncopal episode was likely due to hypotension or vagal reaction that is triggered by her gastroenteritis. As long as she does not have any recurrent syncopal episodes no intervention or evaluation is needed. She can continue the current medications and return for followup in one year. It is my pleasure to participate in the care of this patient. If you have any questions, please do not hesitate to contact me. TODAYS ORDERS 1. Return Visit 2 year 2. F/U with Clarice Nuñez, MSN, NETWORK SERVICES PROJECT MANAGER 1 year 3. 12 Lead EKG 1 year 4. 12 Lead EKG 2 years Kirti Landry M.D. documented in this encounter Plan of Treatment Not on file documented as of this encounter Visit Diagnoses Not on filedocumented in this encounter Care Teams Net Developer Consultant Relationship Specialty [place] [address] [place] [id number] PCP - General 09/09/03 01/09/15 Anand Villarreal MD [address] [place] [address] PCP - General Family Practice 01/10/15 Kirti Landry MD Assigned Heart and Vascular Provider 09/02/20 01/11/23 Cristal Terry PA-C [address] [place] [address] Physician Trash Truck Driver Cardiovascular Disease 05/10/23 Cristal Terry PA-C [address] [place] [address] Assigned Heart and Vascular Provider 08/24/23 documented as of this encounter
--- OUTSIDE RECORDS SUMMARY | 2024-04-22 09:31 | XMS_ITS | Encounter Summary ---
Author Organization [place] Address [address] [place] [address]. [place] [address] Care Team Providers Care Workers Compensation Defense Attorney Name Role Phone Chelsea Rudolph MD Primary Care Provider Anand Echevarria MD Primary Care Provider [phone] Kirti Landry MD Unavailable Unavailable Cristal Terry PA-C Unavailable [phone] Cristal Terry PA-C Unavailable [phone] Encounter Details Date Type Department Care Team (Late st Contact Info) Description 11/07/2007 Office Visit-[facility] [address] [place] [phone] Kirti Landry MD Social History Tobacco Use [...] Progress Notes * Kirti Landry MD - 11/10/2007 3:35 PM CST Progress Note Created by: Kirti Landry M.D. DATE: 11/07/2007 JINA GREENE DATE OF : 1945 AGE: [age] years old Referring Physician: SELF, SELF CURRENT DIAGNOSES 1. - Atrial Fibrillation, 427.31 2. - Arrhythmia, 427.9 3. - Ventricular tachycardia, 427.1 4. - Shortness of Breath, 786.05 5. - Hypercholesterolemia, 272.0 6. - Tachycardia, 785.0 ALLERGIES NKA MEDICATIONS (prior to changes made today) 1. Simvastatin 20 mg, 1 p.o. q.d. 2. Aspirin Child 81 mg, 1 p.o. q.d. CHIEF COMPLAINTS Followup of - Arrhythmia HISTORY OF PRESENT ILLNESS I saw Mrs. Greene for follow-up of ventricular tachycardia. This 62-year-old white female initially presented with palpitation and was found to have one episode of nonsustained VT on the EKG event monitor. She underwent an EP study by Dr. Echevarria and was found to have no inducible VT. She was subsequently treated with low dose of flecainide. When I saw her about a year ago she agreed to discontinue flecainide therapy. Afterwards she did very well for over six months. Over the last six months shestarted to have recurrent palpitations mostly with skipped heart beats. On one occasion she did have a rapid heart rate to about 160 beats per minute that lasted for about 2-3 hours. To my surprise ximena hernandez did not seek any medical attenuation. She told me that she fell to sleep and woke up in normal heart rhythm the next morning. Apparently she did not have other severe symptoms during her rapid heart racing. Interestingly the majority of her palpitation occurred while she was at rest. On examination today, her blood pressure remains normal and her body weight is slightly elevated at181 pounds. Her cardiac rhythm was regular and the heart sounds were normal. The physical examination was otherwise unremarkable. PAST HISTORY Past Medical Illnesses: hypercholesterolemia, diverticulitis, [...] lives with ; REVIEW OF SYSTEMS GENERAL positive for weight gain of approximately 5 lbs, decreased exercise tolerance INTEGUMENTARY denies any change in hair or nails, rashes, or skin lesions. EYES wears eye glasses/contact lenses EARS, NOSE, THROAT, MOUTH denies any hearing loss, epistaxis, hoarseness or difficulty speaking. RESPIRATORY denies dyspnea, snoring, cough, wheezing or hemoptysis. CARDIOVASCULAR negative for palpitations, chest pain, orthopnea, PND, peripheral edema, syncope or claudication. ABDOMINAL denies ulcer disease, hematochezia or melena. GENITOURINARY-FEMALE positive for frequency, positive for nocturia MUSCULOSKELETAL chronic back pain NEUROLOGICAL denies any history of recurrent strokes, headaches, TIA, or seizure disorder. PSYCHIATRIC anxiety, sleep disturbance ENDOCRINE hyperlipidemia HEMATOLOGICAL/IMMUNOLOGIC denies any food allergies, seasonal allergies, bleeding disorders. PHYSICAL EXAMINATION VITAL SIGNS: Blood Pressure: 128/84 Sitting, Left arm, regular cuff Pulse- 80.00/min. Weight- 181.00 lbs. Height- 63.00 Temperature- .00 CONSTITUTIONAL cooperative, [...] time, person and place. MEDICATIONS UPDATED/STARTED TODAY: Simvastatin 20 mg, 1 p.o. q.d., DIRECTED MEDICATIONS REFILLED/STOPPED TODAY: Lipitor 10 mg 1 p.o. q.d. DIRECTED Substitution ASSESSMENT AND RECOMMENDATION: Mrs. Greene has recurrent palpitations that was relatively more frequent recently. In addition, she had one episode for rapid heart racing of unknown nature. Overall, her symptoms seem to be relatively mild to moderate. At this point I instructed the patient for pulse checking during her palpitation. For her rapid heart racing, I asked her to go to the emergency room to get an EKG recorded if it ever happens again. If she has frequent palpitations I will considerreuse of the event monitor for documentation. I plan to see her in about a year but likely will have to see her earlier if she has more frequent problems in the near future. It is my pleasure to participate in the care of this patient. If you have any questions, please do not hesitate to contact me. ) TODAYS ORDERS 1. Return Visit 1 year Kirti Landry M.D. documented in this encounter Plan of Treatment Not on file documented as of this encounter Visit Diagnoses Not on filedocumented in this encounter Care Teams Workers Compensation Defense Attorney Relationship Specialty [place] [address] [place] [id number] PCP - General 09/09/03 01/09/15 Anand Echevarria MD [address] [place] [address] PCP - General Family Practice 01/10/15 Kirti Landry MD Assigned Heart and Vascular Provider 09/02/20 01/11/23 Cristal Terry PA-C [address] [place] [id number] Physician Drapery Counselor Cardiovascular Disease 05/10/23 Cristal Terry PA-C [address] [place] [id number] Assigned Heart and Vascular Provider 08/24/23 documented as of this encounter
--- OUTSIDE RECORDS SUMMARY | 2024-04-22 09:31 | XMS_ITS | Encounter Summary ---
Author Organization [place] Address [address] [place] [address]. [place] [address] Care Team Providers Care Well Digger Name Role Phone Alfonso Jin MD Primary Care Provider Anand Echevarria MD Primary Care Provider [phone] Kirti Landry MD Unavailable Unavailable Cristal Terry PA-C Unavailable [phone] Cristal Terry PA-C Unavailable [phone] Encounter Details Date Type Department Care Team (Late st Contact Info) Description 09/19/2004 Office Visit-[facility] [address] [place] [address] Unknown, DoctorMD Social History Tobacco [...] Progress Notes * Unknown, MD Jae - 09/21/2004 9:08 AM CST Progress Note Created by: Shawna Mayes M.D. DATE: 09/19/2004 JINA GREENE DATE OF : 1945 AGE: [age] years old Referring Physician: ALFONSO JIN [facility] CURRENT DIAGNOSES 1. - Arrhythmia, 427.9 2. - Ventricular tachycardia, 427.1 3. - Tachycardia, 785.0 4. - Shortness of Breath, 786.05 5. - Hypercholesterolemia, 272.0 ALLERGIES NKA MEDICATIONS (including any changes made today) 1. Lipitor 10 mg, 1 p.o. q.d. 2. Premarin 0.3 mg, 1 p.o. q.d. CHIEF COMPLAINTS F/u event monitor HISTORY OF PRESENT ILLNESS I had the pleasure of seeing your patient, Mrs. Jina Greene, in follow up at the [facility] on September 19, 2004. I initially met Mrs. Greene on August 08, 2004. As you know, she is a 59-year-old woman whose cardiac risk factors include age, postmenopausal state, and hyperlipidemia. The patient tells me that she has had problems with tachyarrhythmias for the last 30 years. However, with vagal maneuvers these were usually terminated quite easily. She has not had formal cardiac testing in the past. This prompted me to obtain a transthoracic echocardiogram which was done on August 14, 2004. She was found to have a structurally normal heart with trace mitral and tricuspid regurgitation which werelikely physiologic. She also had a Cardiolite stress test on that day. On a Doni protocol she was able to exercise for a total of 10 minutes and 34 seconds, achieving a workload of 12.6 METs. She had a normal heart rate and blood pressure response to exercise. She achieved 98% of her maximum predicted heart rate. The double product was 24,648. Her ejection fraction at rest was 63%. Post stress it augmented to 74%. She had no perfusion defects on the study. There was no evidence for ischemia orprior infarct. The patient also had a magnesium, thyroid, and potassium check on September 13, 2004. Her magnesium was 2.2, TSH was normal at 1.09, and her potassium was 4.3. I also had her wear an event monitor. Shewas noted to have an 11-beat run of ventricular tachycardia on two of her transmissions. The patient told me that Saturday she developed the same type of symptoms. She states it does not feel like her paroxysmal supraventricular tachycardia she has had in the past. She states typically when she would get her palpitations they would last about a minute, and they would resolve with vagal maneuvers.However, her current episodes last about five minutes. Saturday she was doing chores around the house and developed a fullness in her neck. She felt lightheaded. She felt that her heart was racing. She then attempted to drive to the Emergency Room. However, it terminated. She went back home. She had another episode that had the same type of symptoms. She again went to the Emergency Room and she was admitted overnight for observation. She had no arrhythmias during her hospitalization. Mrs. Greene has been on Lipitor for the last two years. Her last cholesterol profile from July 27, 2004, showed a total cholesterol of 189, triglycerides 129, HDL 39, and LDL 124. I did ask her if there is any family history of sudden cardiac . She does tell me that she is adopted and is unsure of the history on her father's side of the family. She does know something about her mother's side of the family. She thinks her mother lived to the age of 95 and had diabetes mellitus. She has a maternal uncle who of a myocardial infarction at an older age. Mrs. Greene is postmenopausal and she is on low doses of Premarin to help with her hot flashes. PAST HISTORY Past Medical Illnesses: hypercholesterolemia, diverticulitis, [...] diet; Exercise - some exercise; Occupation - [employer] and spends majority of time volunteering; Residence - lives with ; REVIEW OF SYSTEMS GENERAL weight gain of approximately 5 lbs INTEGUMENTARY denies any change in hair or nails, rashes, or skin lesions. EYES denies diplopia, history of glaucoma or visual field defects. EARS, NOSE, THROAT, MOUTH denies any hearing loss, epistaxis, hoarseness or difficulty speaking. RESPIRATORY dyspnea, dyspnea with exertion, improved CARDIOVASCULAR palpitations, chest pressure, rarely ABDOMINAL denies ulcer disease, hematochezia or melena. [...] EXAMINATION VITAL SIGNS: Blood Pressure: 120/80 Sitting, Right arm, regular cuff Pulse- 76.00/min. Weight- 178.00 lbs. Height- 63.00 Temperature- .00 [...] appropriate, oriented to time, person and place. IMPRESSIONS/PLAN </B><FONT FACE=Synchro Assembler New> Jina Greene is a 59-year-old woman with cardiac risk factors of age, postmenopausal state, and hyperlipidemia. She has a long history of tachyarrhythmias. However, her palpitations have been different recently. Her transthoracic echocardiogram shows that she has a structurally normal heart. There is no evidence for ischemia or prior infarct on her recent stress test. She has no thyroid or electrolyte abnormalities. Her problem appears to be predominantly one of rhythm. Her recent Holter showed nonsustained ventricular tachycardia. I am concerned given that she is having more symptoms. It is also difficult to assess her as she does not know her family history as she is adopted. I have referred the patient to my colleague, Dr. Hossein Echevarria. She will be seen by him on Sunday, September 26, 2004, at 1:15 p.m. I think she should be considered for an EP study to see if she has inducible ventricular tachycardia. I have not put her on any medications at this time as I do not want to suppress her arrhythmia since I feel she will likely need to be studied. It was my pleasure to participate in the care of this interesting lady. If you have any questions at all regarding her Cardiology Clinic visit today, please do not hesitate to contact me. <B><FONT FACE=System> TODAYS ORDERS 1. F/U with Hossein Echevarria MD ADAM 2. Event Recorder Today Shawna Mayes M.D. documented in this encounter Plan of Treatment Not on file documented as of this encounter Visit Diagnoses Not on filedocumented in this encounter Care Teams Well Digger Relationship Specialty Start Date End Date Alfonso Jin MD [address] [place] [address] [id number] PCP - General 09/09/03 01/09/15 Anand Echevarria MD [address] [place] [id number] PCP - General Family Practice 01/10/15 Kirti Landry MD Assigned Heart and Vascular Provider 09/02/20 01/11/23 Cristal Terry PA-C [address] [place] [id number] Physician Coin Machine Collector Supervisor Cardiovascular Disease 05/10/23 Cristal Terry PA-C [address] [place] [address] Assigned Heart and Vascular Provider 08/24/23 documented as of this encounter
--- NOTE | 2024-04-22 09:45 | CRLHL7_ITS ---
For Patients: As a result of the Century Cures Act, medical imaging exams and procedure reports are released immediately into your electronic medical record. You may view this report before your referring provider. If you have questions, please contact your health care provider. BILATERAL SCREENING MAMMOGRAM WITH COMPUTER-AIDED DETECTION AND TOMOSYNTHESIS TECHNIQUE: CC and MLO views were obtained. These mammographic images have been obtained using full-field digital technique. These mammographic images were interpreted with the benefit of computer-aided detection. Breast Tomosynthesis was used in this interpretation. COMPARISON FILM: 05/23/21, 05/17/20, 04/17/19. FINDINGS: The breasts are almost entirely fatty. IMPRESSION: There is no radiographic evidence for malignancy. ASSESSMENT: BI-RADS Category 1: Negative RECOMMENDATION: Routine screening mammogram in 1 year. A lay language report of this examination will be provided to the patient. Nic Taylor M.D. Diagnostic Radiologist [email or web address] SP/Dictated by: Nic Taylor MD @ 04/27/2024 9:42:00 AM (Electronically Signed)
== END 2024-04-22 09:28 | disposition home or self-care (01) ==
PROVIDERS: PCP Family Medicine; Visit Provider Family Medicine
DX: Z12.31 Encounter for screening mammogram for malignant neoplasm of breast (principal)
CPT/HCPCS: 77063; 77067

== ENCOUNTER 2024-09-22 12:55 | Outpatient (CLI) | payer MEDICARE, BC, SELFPAY ==
--- OUTSIDE RECORDS SUMMARY | 2024-09-22 12:58 | XMS_ITS | Encounter Summary ---
Author Organization [place] Address [address] [place] [address]. [place] [address] Care Team Providers Care Public Health Inspector Name Role Phone Anand Echevarria MD Primary Care Provider Cristal Terry PA-C Unavailable Cristal Terry PA-C Unavailable Reason for Visit * Reason Onset Date Comments Refill Request 01/30/2023 flacanide Encounter Details Date Type Department Care Team (Late st Contact Info) Description 01/30/[address] 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 Yes Name of medication being requested: amanda Provider who prescribed the medication: Gris Pharmacy: [facility] [address] [place], [place] [address]MICHAEL [facility] Date medication is needed: 01/30 Action Taken: Other: cardio Travel Screening: Not Applicable documented in this encounter Plan of Treatment Upcoming Encounters Date Type Department Care Team (Late st Contact Info) Description 01/05/2025 9:45 AM TECHNOLOGY SPECIALIST Lab [address] [phone] 01/07/2025 7:45 AM TECHNOLOGY SPECIALIST Office Visit [address] [place] [phone] Will Awad MD [address] [place] [phone] documented as of this encounter Visit Diagnoses Not on filedocumented in this encounter Care Teams Public Health Inspector Relationship Specialty Start Date End Date Anand Echevarria MD PCP - General Family Practice 01/10/15 Cristal Terry PA-C [address] [place] [phone] Physician Certified Ophthalmic Assistant Cardiovascular Disease 05/10/23 Cristal Terry PA-C [address] [place] [phone] Assigned Heart and Vascular Provider 08/24/23 documented as of this encounter
--- OUTSIDE RECORDS SUMMARY | 2024-09-22 12:58 | XMS_ITS | Encounter Summary ---
Author Organization [place] Address [facility] [place] [address] Care Team Providers Care Lime Slaker Name Role Phone Chelsea Rudolph MD Primary Care Provider Anand Villarreal MD Primary Care Provider Kirti Landry MD Unavailable Unavailable Cristal Terry PA-C Unavailable [phone] Cristal Terry PA-C Unavailable Encounter Details Date Type Department Care Team (Late st Contact Info) Description 01/29/2013 Office Visit-[facility] [address] [place] [phone] Clarice De Leon, BELT CHANGER SUPPORT ASSISTANT [address] [facility] [address] [place] [address] Social History Tobacco Use Types Packs/Day Years Used Date Smoking Tobacco: Never Alcohol Use Standard Drinks/Week Comments No 0 (1 standard drink = 0.6 oz pur e alcohol) Comments No Sex and Gender Information Value Date Recorded Sex Assigned at Female 08/06/2023 3:22 PM CDT Legal Sex Female 4:24 AM DIRECTOR DRUG SAFETY Gender Identity Female 08/06/2023 3:22 PM CDT Sexual Orientation Straight 08/06/2023 3: 22 PM CDT 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 DATE: 01/29/2013 #[id number] JINA GREENE DATE OF : 1945 AGE: [age] years old Referring Physician: ANAND VILLARREAL Referring Clinic: [facility] CURRENT DIAGNOSES 1. - Ventricular tachycardia, 427.1 [...] 200 mg capsule, 1 p.o. daily 4. Xzxpeqpszjv-Btptavkwlzm-DAE 500-500-66.7 mg tablet, 2 p.o. daily 5. [...] mg capsule, 1 p.o. daily, #0 (Zero) Scstskflcsx-Tskfeowggag-ENO 500-500-66.7 mg tablet, 2 p.o. daily, #0 [...] ORDERS 1. 12 Lead EKG Today Clarice Nuñez, N.P. documented in this encounter Plan of Treatment Upcoming Encounters Date Type Department Care Team (Late st Contact Info) Description 01/05/2025 9:45 AM DIRECTOR DRUG SAFETY Lab [address] [place] [phone] 01/07/2025 7:45 AM DIRECTOR DRUG SAFETY Office Visit [address] [place] [phone] Will Awad MD [address] [facility] [address] [place], [place] [phone] documented as of this encounter Visit Diagnoses Not on filedocumented in this encounter Care Teams Lime Slaker Relationship Specialty [place] [address] [place] [id number] PCP - General 09/09/03 01/09/15 [place] [address] [place] [id number] PCP - General Family Practice 01/10/15 Kirti Landry MD Assigned Heart and Vascular Provider 09/02/20 01/11/23 Cristal Terry PA-C [address] [place] [address] Physician Pipe Blanks Cut Off Saw Operator Cardiovascular Disease 05/10/23 Cristal Terry PA-C [address] [place] [address] Assigned Heart and Vascular Provider 08/24/23 documented as of this encounter
--- OUTSIDE RECORDS SUMMARY | 2024-09-22 12:58 | XMS_ITS | Referral Summary ---
Author Organization [facility] Address [address] [place] [address] Care Team Providers Care Mechanical Maintenance Technician Name Role Phone Anand Echevarria MD Primary Care Provider [phone] Cristal Terry PA-C Unavailable Cristal Terry PA-C Unavailable [phone] Encounters Date Type Department Care Team Description 08/04/2024 Telephone [facility] [address] [place] [address] Cierra Blackburn, SHARRI ordres from Last 3 Months Allergies Active Allergy Reactions Criticality Noted Date Comments No Known Drug Allergy 07/20/2003 Medications simvastatin (ZOCOR) 40 MG tablet Take 40 mg by mouth At Bedtime Active MELOXICAM PO Take 15 mg by mouth daily Active [place]-3 Fatty Acids (FISH OIL) 1200 MG capsule Take 1,200 mg by mouth daily Active aspirin 81 MG EC tablet daily 2 Active LOSARTAN POTASSIUM-HCTZ PO Ac tive flecainide (TAMBOCOR) 100 MG tabletIndications :Paroxysmal atrial fibrillation (H) Take 1 tablet (100 mg) by mouth 2 times daily 180 tablet 1 4 Active Active Problems Problem Noted Date Diagnosed Date Pericardial effusion 09/16/2017 Insomnia 07/20/2005 Overview (08/11/2015): Problem list name updated by automated process. Provider to review TRIGEMINAL NEURALGIA- intermittent 02/20/2005 Overview (02/20/2005): intermittent - going to [facility] Thyroiditis 07/26/2004 Overview (08/11/2015): right thyroid enlargement = chronic, worked-up thoroughly in past Problem list name updated by automated process. Provider to review Ventricular tachycardia Atrial fibrillation Screening for cardiovascular condition Overview (08/12/2015): Problem list name updated by automated process. 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 file Not on file Not on file Last Filed Vital Signs Vital Sign Reading Time Taken Comments Blood Pressure 136/70 08/13/2023 9:56 AM CDT Pulse 69 08/13/2023 9:56 AM CDT Temperature 35.9 ??C (96.6 ??F) 09/18/2017 7:47 AM CS T Respiratory Rate 18 09/18/2017 7:47 AM DIGITAL PRODUCTION ARTIST Oxygen Saturation 96% 08/13/2023 9:56 AM CDT Inhaled Oxygen Concentration - - Weight 78.9 kg (174 lb) 08/13/2023 9:56 AM CDT Height 160 cm (5' 3) 08/13/2023 9:56 AM CDT Body Mass Index 30.82 08/13/2023 9:56 AM CDT Plan of Treatment Upcoming Encounters Date Type Department Care Team (Late st Contact Info) Description 01/05/2025 9:45 AM DIGITAL PRODUCTION ARTIST Lab [facility] [id number] [place] [address] [address] [place] [phone] 01/07/2025 7:45 AM DIGITAL PRODUCTION ARTIST Office Visit [address] [place] [address] Will Awad MD [address] [place], [place] [phone] Procedures Procedure Name Priority Date/Time Associated Diagnosis Comments LIPID PROFILE Routine 09/17/2022 9:40 AM DIGITAL PRODUCTION ARTIST C DEXA, BONE DENSITY, AXIAL SKEL Routine 03/26/2004 Symptomatic Female Climacteric State from Last 3 Months or Most Recently Relevant to Health Maintenance Results * (ABNORMAL) Lipid Profile (09/17/2022 9:40 AM DIGITAL PRODUCTION ARTIST) Triglycerides (External) 153(H) 40 - 149 mg/dL NON-INTERFACE D (ONBASE SCANS) Cholesterol (External) 171 90 - 199 mg/dL NON-INTERFACE D (ONBASE SCANS) LDL Cholesterol Calculated (External) 96 <100 mg/dL NON-INTERFACE D (ONBASE SCANS) HDL Cholesterol (External) 44(L) >=50 mg/dL NON-INTERFACE D (ONBASE SCANS) Blood BLOOD SPECIMEN / Unknown 09/17/2022 9:40 AM DIGITAL PRODUCTION ARTIST Narrative [facility] PFT - 08/13/2023 9:44 AM CDT Verified by Link Chen on 08/13/2023. us Anand Echevarria MD LAB - BLOOD ORDERABLES Edited Result - Final [facility] PFT NON-INTERFACED (ONBASE SCANS) * DEXA, BONE DENSITY, AXIAL SKEL (03/26/2004) Anatomical Region Laterality Modality Bone Mineral Den sity Impressions 03/26/2004 BONE DENSITOMETRY [facility] 03/22/2004 PATIENT: ??Jina Garcia CHART: [id number] : ??1945 AGE: ??58 year old SEX: ??female REFERRING PHYSICIAN: ??Chelsea Rudolph M.D. PROCEDURE: ??Bone density scanning was performed using DEXA technology performed on a Zoyi scanner. ??Reporting is completed in the form [...] Borderline osteopenia. Zuly Marie M.D. Electronically signed us Chelsea Rudolph MD SPECIAL IMAGING STUDIES Final Result from Last 3 Months or Most Recently Relevant to Health Maintenance Insurance MEDICARE [facility] [place] MEDICARE [facility] [place] [id number] Care Teams Mechanical Maintenance Technician Relationship Specialty Start Date End Date Anand Echevarria MD PCP - General Family Practice 01/10/15 Cristal Terry PA-C [address] [place] [id number] Physician Post Closing Specialist Cardiovascular Disease 05/10/23 Cristal Terry PA-C [address] [place] [id number] Assigned Heart and Vascular Provider 08/24/23
--- OUTSIDE RECORDS SUMMARY | 2024-09-22 12:58 | XMS_ITS | Encounter Summary ---
Author Organization [place] Address [address] [place] [address]. [place] [address] Care Team Providers Care Mold Maker Plastic Molds Name Role Phone Chelsea Rudolph MD Primary Care Provider Anand Villarreal MD Primary Care Provider [phone] Kirti Landry MD Unavailable Unavailable Cristal Terry PA-C Unavailable [phone] Cristal Terry PA-C Unavailable [phone] Encounter Details Date Type Department Care Team (Late st Contact Info) Description 01/11/2014 Office Visit-[facility] [address] [place] [phone] Kirti Landry MD Social History Tobacco Use Types Packs/Day Years Used Date Smoking Tobacco: Never Alcohol Use Standard Drinks/Week Comments No 0 (1 standard drink = 0.6 oz pur e alcohol) Comments No Sex and Gender Information Value Date Recorded Sex Assigned at Female 08/06/2023 3:22 PM CDT Legal Sex Female 4:24 AM TOWER EQUIPMENT INSTALLER Gender Identity Female 08/06/2023 3:22 PM CDT [...] Referring Physician: ANAND VILLARREAL Referring Clinic: [facility] CURRENT DIAGNOSES 1. - Ventricular [...] po PRN when in atrial fib 4. Epufmexdsmm-Wavydnnaklc-LRL 500-500-66.7 mg tablet, 2 p.o. daily 5. [...] and Vitamin D 600 mg-125 u Dose/instruction [place] 0 Directions Changed-No Abbrvs andCelebrex 200 mg [...] st Contact Info) Description 01/05/2025 9:45 AM TOWER EQUIPMENT INSTALLER Lab [address] [place] [phone] 01/07/2025 7:45 AM TOWER EQUIPMENT INSTALLER Office Visit [address] [place] [phone] Will Awad MD [address] [place], [place] [phone] documented as of this encounter Visit Diagnoses Not on filedocumented in this encounter Care Teams Mold Maker Plastic Molds Relationship Specialty Start Date End Date Chelsea Rudolph MD [address] [place] [phone] PCP - General 09/09/03 01/09/15 Anand Villarreal MD [address] [place] [address] PCP - General Family Practice 01/10/15 Kirti Landry MD Assigned Heart and Vascular Provider 09/02/20 01/11/23 Cristal Terry PA-C [address] [place] [id number] Physician Clinical Manager Cardiovascular Disease 05/10/23 Cristal Terry PA-C [address] [place] [id number] Assigned Heart and Vascular Provider 08/24/23 documented as of this encounter
--- OUTSIDE RECORDS SUMMARY | 2024-09-22 12:58 | XMS_ITS | Encounter Summary ---
Author Organization [place] Address [facility] [place] [address] Care Team Providers Care Corporate Quality Manager Name Role Phone Anand Echevarria MD Primary Care Provider [phone] Kirti Landry MD Unavailable Unavailable Cristal Terry PA-C Unavailable Cristal Terry PA-C Unavailable [phone] Encounter Details Date Type Department Care Team (Late st Contact Info) Description 09/17/2022 External Order Results [facility] [address] [place] [address] Outside, Provider Social History Tobacco Use Types Packs/Day Years Used Date Smoking Tobacco: Never Smokeless Tobacco: Never Alcohol Use Standard Drinks/Week Comments No 0 (1 standard drink = 0.6 oz pur e alcohol) Comments No Sex and Gender Information Value Date Recorded Sex Assigned at Female 08/06/2023 3:22 PM CDT Legal Sex Female 4:24 AM PRESALES CONSULTANT Gender Identity Female 08/06/2023 3:22 PM CDT Sexual Orientation Straight 08/06/2023 3: 22 PM CDT 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 No / Unsure 09/10/2022 1:32 PM CDT documented as of this encounter Plan of Treatment Upcoming Encounters Date Type Department Care Team (Late st Contact Info) Description 01/05/2025 9:45 AM PRESALES CONSULTANT Lab [facility] [address] [facility] [address] [place] [address] 01/07/2025 7:45 AM PRESALES CONSULTANT Office Visit [facility] [address] [facility] [address] [place] [address] Will Awad MD [address] [facility] [address] [place] [phone] documented as of this encounter Procedures Procedure Name Priority Date/Time Associated Diagnosis Comments LIPID PROFILE Routine 09/17/2022 9:40 AM PRESALES CONSULTANT BASIC METABOLIC PANEL Routine 09/17/2022 9:40 AM PRESALES CONSULTANT documented in this encounter Results * (ABNORMAL) Basic metabolic panel (09/17/2022 9:40 AM PRESALES CONSULTANT) Sodium (External) 138 135 - 149 mmol/L [...] BLOOD SPECIMEN / Unknown 09/17/2022 9:40 AM PRESALES CONSULTANT Narrative [facility] PFT - 08/13/2023 9:44 AM CDT Verified by Link Chen on 08/13/2023. us Anand Echevarria MD LAB - BLOOD ORDERABLES Edited Result - Final Performing Organization Address City/[facility]/ZIP Co de Phone Number [facility] PFT NON-INTERFACED (ONBASE SCANS) * (ABNORMAL) Lipid Profile (09/17/2022 9:40 AM PRESALES CONSULTANT) Triglycerides (External) 153(H) 40 - 149 mg/dL NON-INTERFACE D (ONBASE SCANS) Cholesterol (External) 171 90 - 199 mg/dL NON-INTERFACE D (ONBASE SCANS) LDL Cholesterol Calculated (External) 96 <100 mg/dL NON-INTERFACE D (ONBASE SCANS) HDL Cholesterol (External) 44(L) >=50 mg/dL NON-INTERFACE D (ONBASE SCANS) Blood BLOOD SPECIMEN / Unknown 09/17/2022 9:40 AM PRESALES CONSULTANT Narrative [facility] PFT - 08/13/2023 9:44 AM CDT Verified by Link Chen on 08/13/2023. us Anand Echevarria MD LAB - BLOOD ORDERABLES Edited Result - Final Performing Organization Address City/[facility]/ZIP Co de Phone Number [facility] PFT NON-INTERFACED (ONBASE SCANS) documented in this encounter Visit Diagnoses Not on filedocumented in this encounter Care Teams Corporate Quality Manager Relationship Specialty Start Date End Date Anand Echevarria MD PCP - General Family Practice 01/10/15 Kirti Landry MD Assigned Heart and Vascular Provider 09/02/20 01/11/23 Cristal Terry PA-C [address] [place] [address] Physician Family Life Counselor Cardiovascular Disease 05/10/23 Cristal Terry PA-C [address] [place] [address] Assigned Heart and Vascular Provider 08/24/23 documented as of this encounter
--- OUTSIDE RECORDS SUMMARY | 2024-09-22 12:58 | XMS_ITS | Clinical Summary ---
Author Organization [place] Address [address] [place] [address] Care Team Providers Care Corporation Lawyer Name Role Phone Anand Echevarria MD Primary Care Provider Cristal Terry PA-C Unavailable Cristal Terry PA-C Unavailable [phone] Allergies Active Allergy Reactions Criticality Noted Date Comments No Known Drug Allergy 07/20/2003 Medications simvastatin (ZOCOR) 40 MG tablet Take 40 mg by mouth At Bedtime Active MELOXICAM PO Take 15 mg by mouth daily Active [place]-3 Fatty Acids (FISH OIL) 1200 MG capsule [...] 02/20/2005 Overview (02/20/2005): intermittent - going to [facility] Thyroiditis 07/26/2004 Overview (08/11/2015): right thyroid enlargement [...] Type Department Care Team Description 08/04/2024 Telephone [facility] [place] [address] [facility] [address] [place] [address] Cierra Blackburn, RN ordres from Last 3 Months Immunizations Name Administration Dates Next Due Influenza (IIV3) PF 09/10/2003 Family History * Patient is adopted Medical History Relation Comments C.A.D. Maternal Uncle 1 from [place] re lated to diabetes type II Diabetes [...] PM CDT Legal Sex Female 4:24 AM BANK NOTE DESIGNER Gender Identity Female 08/06/2023 3:22 PM CDT [...] T Respiratory Rate 18 09/18/2017 7:47 AM BANK NOTE DESIGNER Oxygen Saturation 96% 08/13/2023 9:56 AM CDT Inhaled Oxygen Concentration - - Weight 78.9 kg (174 lb) 08/13/2023 9:56 AM CDT Height 160 cm (5' 3) 08/13/2023 9:56 AM CDT Body Mass Index 30.82 08/13/2023 9:56 AM CDT Plan of Treatment Upcoming Encounters Date Type Department Care Team (Late st Contact Info) Description 01/05/2025 9:45 AM BANK NOTE DESIGNER Lab [facility] [address] [facility] [place] [address] [place] [address] 01/07/2025 7:45 AM BANK NOTE DESIGNER Office Visit [facility] [address] [facility] [address] [place] [address] Will Awad MD [address] [facility] [address] [place] [id number] Health Maintenance Due Date Last Done Comments ADVANCE CARE PLANNING 1945 ANNUAL REVIEW OF HM ORDERS 1945 FALL RISK ASSESSMENT 2008 MEDICARE ANNUAL WELLNESS VISIT 2008 02/20/2005, 07/20/2003 ZOSTER IMMUNIZATION (2 of 3) 01/23/2012 11/28/2011 Pneumococcal Vaccine: 65+ Years (2 of 2 - PPSV23 or PCV20) 09/14/2015 07/20/2015, 11/29/2014 RSV VACCINE (1 - 1-dose 75+ series) 2018 DEXA 03/26/2019 03/26/2004 LIPID 09/17/2023 09/17/2022, 02/09, 07/26/2004, Additional history exists PHQ-2 (once per calendar year) 2023 08/13/2023 COVID-19 Vaccine ( season) 2024 08/21/2022, 02/09/2022, 09/15/2021, Additional history exists INFLUENZA VACCINE (#1) 2024 , 08/22/2021, 07/28/2020, Additional history exists DTAP/TDAP/TD IMMUNIZATION (3 - Td or Tdap) 07/07/2031 07/07/2021, 10/17/2011, 06/24/2007 HPV IMMUNIZATION Aged Out No longer e ligible based on patient's age to complete this topic MENINGITIS IMMUNIZATION Aged Out No l onger eligible based on patient's age to complete this topic RSV MONOCLONAL ANTIBODY Aged Out No l onger eligible based on patient's age to complete this topic Procedures Procedure Name Priority Date/Time Associated Diagnosis Comments LIPID PROFILE Routine 09/17/2022 9:40 AM BANK NOTE DESIGNER C DEXA, BONE DENSITY, AXIAL SKEL Routine 03/26/2004 Symptomatic Female Climacteric State from Last 3 Months or Most Recently Relevant to Health Maintenance Results * (ABNORMAL) Lipid Profile (09/17/2022 9:40 AM BANK NOTE DESIGNER) Triglycerides (External) 153(H) 40 - 149 mg/dL NON-INTERFACE D (ONBASE SCANS) Cholesterol (External) 171 90 - 199 mg/dL NON-INTERFACE D (ONBASE SCANS) LDL Cholesterol Calculated (External) 96 <100 mg/dL NON-INTERFACE D (ONBASE SCANS) HDL Cholesterol (External) 44(L) >=50 mg/dL NON-INTERFACE D (ONBASE SCANS) Blood BLOOD SPECIMEN / Unknown 09/17/2022 9:40 AM BANK NOTE DESIGNER Narrative [facility] PFT - 08/13/2023 9:44 AM CDT Verified by Link Chen on 08/13/2023. Anand Echevarria MD LAB - BLOOD ORDERABLES Edited Result - Final [facility] PFT NON-INTERFACED (ONBASE SCANS) * DEXA, BONE DENSITY, AXIAL SKEL (03/26/2004) Anatomical Region Laterality Modality Bone Mineral Den sity Impressions 03/26/2004 BONE DENSITOMETRY [facility] 03/22/2004 PATIENT: ??Jina Garcia CHART: [id number] : ??1945 AGE: ??58 year old SEX: ??female REFERRING PHYSICIAN: ??Chelsea Rudolph M.D. PROCEDURE: ??Bone density scanning was performed using DEXA technology performed on a BloggersBase scanner. ??Reporting is completed in the form [...] Recently Relevant to Health Maintenance Insurance MEDICARE [facility] BLUE MEDICARE [facility] BLUE Care Teams Corporation Lawyer Relationship Specialty Start Date End Date Anand Echevarria MD PCP - General Family Practice 01/10/15 Cristal Terry PA-C [address] [place] [address] Physician Hay Chopper Cardiovascular Disease 05/10/23 Cristal Terry PA-C [address] [place] [address] Assigned Heart and Vascular Provider 08/24/23
--- OUTSIDE RECORDS SUMMARY | 2024-09-22 12:58 | XMS_ITS | Encounter Summary ---
Author Organization [place] Address [address] [place] [address]. [place] [address] Care Team Providers Care Parts Salvager Name Role Phone Anand Echevarria MD Primary Care Provider Cristal Terry PA-C Unavailable [phone] Cristal Terry PA-C Unavailable Reason for Visit * Reason Onset Date Comments ordres 08/04/2024 Encounter Details Date Type Department Care Team (Late st Contact Info) Description 08/04/2024 Telephone [facility] [address] [place] [address] Cierra Blackburn, RN ordres Social History Tobacco Use Types Packs/Day Years [...] PM CDT Legal Sex Female 4:24 AM DRUG COORDINATOR Gender Identity Female 08/06/2023 3:22 PM CDT Sexual Orientation Straight 08/06/2023 3: 22 PM CDT 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 Not on file Not on file Not on file documented as of this encounter Plan of Treatment Upcoming Encounters Date Type Department Care Team (Late st Contact Info) Description 01/05/2025 9:45 AM DRUG COORDINATOR Lab [facility] [address] [place] [phone] 01/07/2025 7:45 AM DRUG COORDINATOR Office Visit [facility] [address] [place] [phone] Will Awad MD [address] [place] [id number] Scheduled Orders Name Type Priority Associated Diagnoses Orde r Schedule CBC with platelets differential Lab Panel Routine Paroxysmal atrial fibrillation (H) Expected: 01/07/2025 (Approximate), Expires: 08/04/2025 Basic metabolic panel Lab Routine Paroxysmal atrial fibrillation (H) Expected: 01/07/2025 (Approximate), Expires: 08/04/2025 documented as of this encounter Visit Diagnoses Diagnosis Paroxysmal atrial fibrillation (H)- Primary Atrial fibrillation documented in this encounter Care Teams Parts Salvager Relationship Specialty Start Date End Date Anand Echevarria MD PCP - General Family Practice 01/10/15 Cristal Terry PA-C [address] [place] [id number] Physician Equity Manager Cardiovascular Disease 05/10/23 Cristal Terry PA-C [address] [place] [id number] Assigned Heart and Vascular Provider 08/24/23 documented as of this encounter
--- OUTSIDE RECORDS SUMMARY | 2024-09-22 12:58 | XMS_ITS | Encounter Summary ---
Author Organization [place] Address [address] [place] [address]. [place] [address] Care Team Providers Care Chief Dietitian Name Role Phone Anand Echevarria MD Primary Care Provider [phone] Kirti Landry MD Unavailable Unavailable Cristal Terry PA-C Unavailable [phone] Cristal Terry PA-C Unavailable [phone] Reason for Visit * Reason Onset Date Comments Clinic Care Coordination - Follow-up 05/15/2018 flecainide Encounter Details Date Type Department Care Team (Latest Contact Info) Description 05/15/2018 MyC Medical Advice [facility] [address] [phone] Kirti Landry MD Clinic Care Coordination - Follow-up (fle... 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 Per Epic this was filled on 04/16 and sent to [employer] as requested. LM for pt that this was sent in and to call back to discuss. JNelsonRN documented in this encounter Plan of Treatment Upcoming Encounters Date Type Department Care Team (Late st Contact Info) Description 01/05/2025 9:45 AM PRESS OPERATOR MEAT Lab [address] [phone] 01/07/2025 7:45 AM PRESS OPERATOR MEAT Office Visit [address] [place] [address] Will Awad MD [address] [place] [id number] documented as of this encounter Visit Diagnoses Not on filedocumented in this encounter Care Teams Chief Dietitian Relationship Specialty Start Date End Date Anand Echevarria MD PCP - General Family Practice 01/10/15 Kirti Landry MD Assigned Heart and Vascular Provider 09/02/20 01/11/23 Cristal Terry PA-C [address] [place] [id number] Physician Buddhist Monk Cardiovascular Disease 05/10/23 Cristal Terry PA-C [address] [place] [address] Assigned Heart and Vascular Provider 08/24/23 documented as of this encounter
--- OUTSIDE RECORDS SUMMARY | 2024-09-22 12:58 | XMS_ITS | Encounter Summary ---
Author Organization [place] Address [address] [place] [address]. [place] [address] Care Team Providers Care Shoe Lay Out Planner Name Role Phone Chelsea Rudolph MD Primary Care Provider Anand Villarreal MD Primary Care Provider [phone] Kirti Landry MD Unavailable Unavailable Cristal Terry PA-C Unavailable [phone] Cristal Terry PA-C Unavailable [phone] Encounter Details Date Type Department Care Team (Late st Contact Info) Description 01/21/2012 Office Visit-[facility] [address] [place] [phone] Kirti Landry MD Social History Tobacco Use Types Packs/Day Years Used Date Smoking Tobacco: Never Alcohol Use Standard Drinks/Week Comments No 0 (1 standard drink = 0.6 oz pur e alcohol) Comments No Sex and Gender Information Value Date Recorded Sex Assigned at Female 08/06/2023 3:22 PM CDT Legal Sex Female 4:24 AM EQUIPMENT MECHANIC SPECIALIST Gender Identity Female 08/06/2023 3:22 PM [...] old Referring Physician: ANAND VILLARREAL Referring Clinic: [facility] CURRENT DIAGNOSES 1. - Syncope, 780.2 2. - Hypercholesterolemia, 272.0 3. - Tachycardia, 785.0 4. - Shortness of Breath, 786.05 5. - Ventricular tachycardia, 427.1 6. - Arrhythmia, 427.9 7. - Atrial Fibrillation, 427.31 ALLERGIES NKA MEDICATIONS (prior to changes made today) 1. Aspirin 81 mg Tablet, 1 p.o. daily 2. Calcium Carbonate and Vitamin D 600 mg-125 u, Dose/instruction UK 3. Fish Oil 1,000 mg Capsule, 1 [...] year 2. F/U with Clarice Nuñez, MSN, HYDRO OPERATOR 1 year 3. 12 Lead EKG 1 year 4. 12 Lead EKG 2 years Kirti Landry M.D. documented in this encounter Plan of Treatment Upcoming Encounters Date Type Department Care Team (Late st Contact Info) Description 01/05/2025 9:45 AM EQUIPMENT MECHANIC SPECIALIST Lab [address] [place] [phone] 01/07/2025 7:45 AM EQUIPMENT MECHANIC SPECIALIST Office Visit [address] [address] Will Awad MD [address] [place] [address] documented as of this encounter Visit Diagnoses Not on filedocumented in this encounter Care Teams Shoe Lay Out Planner Relationship Specialty Start Date End Date Chelsea Rudolph MD [address] [place] [address] PCP - General 09/09/03 01/09/15 Anand Villarreal MD [address] [place] [address] 281982 PCP - General Family Practice 01/10/15 Kirti Landry MD Assigned Heart and Vascular Provider 09/02/20 01/11/23 Cristal Terry PA-C [address] [place] [id number] Physician Automotive Mechanic Cardiovascular Disease 05/10/23 Cristal Terry PA-C [address] [place] [address] Assigned Heart and Vascular Provider 08/24/23 documented as of this encounter
--- OUTSIDE RECORDS SUMMARY | 2024-09-22 12:59 | XMS_ITS | Encounter Summary ---
Author Organization [place] Address [address] [place] [address]. [place] [address] Care Team Providers Care Manager Business Planning Name Role Phone Chelsea Rudolph MD Primary Care Provider Anand Echevarria MD Primary Care Provider [phone] Kirti Landry MD Unavailable Unavailable Cristal Terry PA-C Unavailable [phone] Cristal Terry PA-C Unavailable [phone] Encounter Details Date Type Department Care Team (Late st Contact Info) Description 11/14/2006 Office Visit-[facility] [address] [place] [phone] Kirti Landry MD Social History Tobacco Use Types Packs/Day Years Used Date Smoking Tobacco: Never Alcohol Use Standard Drinks/Week Comments No 0 (1 standard drink = 0.6 oz pur e alcohol) Comments No Sex and Gender Information Value Date Recorded Sex Assigned at Female 08/06/2023 3:22 PM CDT Legal Sex Female 4:24 AM LIGHT TRUCK DRIVER Gender Identity Female 08/06/2023 3:22 PM CDT [...] st Contact Info) Description 01/05/2025 9:45 AM LIGHT TRUCK DRIVER Lab [facility] [address] [place] [phone] 01/07/2025 7:45 AM LIGHT TRUCK DRIVER Office Visit [facility] [address] [place] [phone] Will Awad MD [address] [place] [address] documented as of this encounter Visit Diagnoses Not on filedocumented in this encounter Care Teams Manager Business Planning Relationship Specialty Start Date End Date Chelsea Rudolph MD [address] [place] [address] PCP - General 09/09/03 01/09/15 [place] [address] [place] [address] PCP - General Family Practice 01/10/15 Kirti Landry MD Assigned Heart and Vascular Provider 09/02/20 01/11/23 Cristal Terry PA-C [address] [place] [address] Physician Tool Dispatcher Cardiovascular Disease 05/10/23 Cristal Terry PA-C [address] [place] [address] Assigned Heart and Vascular Provider 08/24/23 documented as of this encounter
--- OUTSIDE RECORDS SUMMARY | 2024-09-22 12:59 | XMS_ITS | Encounter Summary ---
Author Organization [place] Address [address] [place] [address]. [place] [address] Care Team Providers Care Painter Airbrush Name Role Phone Alfonso Jin MD Primary Care Provider Anand Echevarria MD Primary Care Provider Kirti Landry MD Unavailable Unavailable Cristal Terry PA-C Unavailable [phone] Cristal Terry PA-C Unavailable [phone] Encounter Details Date Type Department Care Team (Late st Contact Info) Description 08/08/2004 Office Visit-[facility] [address] [place] [address] Unknown, MD Jae Social History Tobacco Use Types Packs/Day Years Used Date Smoking Tobacco: Never Alcohol Use Standard Drinks/Week Comments No 0 (1 standard drink = 0.6 oz pur e alcohol) Comments No Sex and Gender Information Value Date Recorded Sex Assigned at Female 08/06/2023 3:22 PM CDT Legal Sex Female 4:24 AM RETAIL LEASING AGENT Gender Identity Female 08/06/2023 3:22 PM CDT [...] old Referring Physician: ALFONSO JIN Referring Clinic: [facility] CURRENT DIAGNOSES 1. - Shortness of Breath, 786.05 2. - Hypercholesterolemia, 272.0 3. - Tachycardia, 785.0 ALLERGIES NKA MEDICATIONS (including any changes made today) 1. Lipitor 10 mg, 1 p.o. q.d. 2. Premarin 0.3 mg, 1 p.o. q.d. CHIEF COMPLAINTS Referred by pmd HISTORY OF PRESENT ILLNESS I had the pleasure of seeing your patient, Jina Greene, at the [facility] in consultation today. As you [...] [facility]. She [...] diet; Exercise - some exercise; Occupation - [employer] and spends majority of time volunteering; Residence [...] hours, which prompted her to go to [facility] Emergency Room. The patient has never had [...] weeks Shawna Mayes M.D. Electronically signed by [facility] [[email or web address]], Emr Data Conversion at 03/26/2014 1:12 AM CDT documented in this encounter Plan of Treatment Upcoming Encounters Date Type Department Care Team (Late st Contact Info) Description 01/05/2025 9:45 AM RETAIL LEASING AGENT Lab [facility] [address] [place] [address] [address] [place] [phone] 01/07/2025 7:45 AM RETAIL LEASING AGENT Office Visit [address] [phone] Will Awad MD [address] [place], [place] [address] documented as of this encounter Visit Diagnoses Not on filedocumented in this encounter Care Teams Painter Airbrush Relationship Specialty Start Date End Date Alfonso Jin MD [address] [place] [id number] PCP - General 09/09/03 01/09/15 Anand Echevarria MD [address] [place] [address] PCP - General Family Practice 01/10/15 Kirti Landry MD Assigned Heart and Vascular Provider 09/02/20 01/11/23 Cristal Terry PA-C [address] [place] [address] Physician Inside Sales Recruiter Cardiovascular Disease 05/10/23 Cristal Terry PA-C [address] [place] [id number] Assigned Heart and Vascular Provider 08/24/23 documented as of this encounter
--- OUTSIDE RECORDS SUMMARY | 2024-09-22 12:59 | XMS_ITS | Encounter Summary ---
Author Organization [place] Address Count includes the [facility] [place] [address] Care Team Providers Care Pulpwood Cutter Name Role Phone Chelsea Rudolph MD Primary Care Provider Anand Villarreal MD Primary Care Provider [phone] Kirti Landry MD Unavailable Unavailable Cristal Terry PA-C Unavailable [phone] Cristal Terry PA-C Unavailable Encounter Details Date Type Department Care Team (Late st Contact Info) Description 01/10/2011 Office Visit-[facility] [address] [place] [phone] Clarice De Leon, CENTER MEDICAL DIRECTOR MANAGER OF FINANCIAL [address] [facility] [address] [place] [address] Social History Tobacco Use Types Packs/Day Years Used Date Smoking Tobacco: Never Alcohol Use Standard Drinks/Week Comments No 0 (1 standard drink = 0.6 oz pur e alcohol) Comments No Sex and Gender Information Value Date Recorded Sex Assigned at Female 08/06/2023 3:22 PM CDT Legal Sex Female 4:24 AM CHARGE LPN Gender Identity Female 08/06/2023 3:22 PM CDT Sexual Orientation Straight 08/06/2023 3: 22 PM CDT 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 DATE: 01/10/2011 #[id number] JINA GREENE DATE OF : 1945 AGE: [age] years old Referring Physician: ANAND VILLARREAL Referring Clinic: [facility] CURRENT DIAGNOSES 1. - Ventricular tachycardia, 427.1 [...] and Vitamin D 600 mg-125 u, Dose/instruction 4. Aspirin 81 mg Tablet, 1 p.o. [...] concerns regarding today's assessment and plan. Clarice Nuñez, N.P. documented in this encounter Plan of Treatment Upcoming Encounters Date Type Department Care Team (Late st Contact Info) Description 01/05/2025 9:45 AM CHARGE LPN Lab [address] [place] [phone] 01/07/2025 7:45 AM CHARGE LPN Office Visit [address] [place] [phone] Will Awad MD [address] [facility] [address] [place], [place] [address] documented as of this encounter Visit Diagnoses Not on filedocumented in this encounter Care Teams Pulpwood Cutter Relationship Specialty Start Date End Date Chelsea Rudolph MD [address] [place] [address]232 PCP - General 09/09/03 01/09/15 Anand Villarreal MD [address] [place] [address] PCP - General Family Practice 01/10/15 Kirti Landry MD Assigned Heart and Vascular Provider 09/02/20 01/11/23 Cristal Terry PA-C [address] [place] [id number] Physician Scagliola Mechanic Cardiovascular Disease 05/10/23 Cristal Terry PA-C [address] [place] [id number] Assigned Heart and Vascular Provider 08/24/23 documented as of this encounter
--- OUTSIDE RECORDS SUMMARY | 2024-09-22 12:59 | XMS_ITS | Encounter Summary ---
Author Organization [place] Address [address] [place] [address]. [place] [address] Care Team Providers Care Canal Driver Name Role Phone Alfonso Jin MD Primary Care Provider Anand Echevarria MD Primary Care Provider Kirti Landry MD Unavailable Unavailable Cristal Terry PA-C Unavailable [phone] Cristal Terry PA-C Unavailable [phone] Encounter Details Date Type Department Care Team (Late st Contact Info) Description 12/05/2004 Office Visit-[facility] [address] [place] [address] Unknown, MD Jae Social History Tobacco Use Types Packs/Day Years Used Date Smoking Tobacco: Never Alcohol Use Standard Drinks/Week Comments No 0 (1 standard drink = 0.6 oz pur e alcohol) Comments No Sex and Gender Information Value Date Recorded Sex Assigned at Female 08/06/2023 3:22 PM CDT Legal Sex Female 4:24 AM SALON COORDINATOR Gender Identity Female 08/06/2023 3:22 PM [...] old Referring Physician: ALFONSO JIN [facility] CURRENT DIAGNOSES 1. - Atrial Fibrillation, 427.31 [...] Aspirin 325 mg, PO QD IMPRESSIONS/PLAN <FONT FACE=Decorator Consultant New>Her electrocardiogram from today shows normal sinus [...] st Contact Info) Description 01/05/2025 9:45 AM SALON COORDINATOR Lab [facility] [address] [place] [phone] 01/07/2025 7:45 AM SALON COORDINATOR Office Visit [facility] [address] [place] [phone] Will Awad MD [address] [place], [place] [address] documented as of this encounter Visit Diagnoses Not on filedocumented in this encounter Care Teams Canal Driver Relationship Specialty Start Date End Date Alfonso Jin MD [address] [place] [address] [phone] PCP - General 09/09/03 01/09/15 Anand Echevarria MD [address] [place] [address] PCP - General Family Practice 01/10/15 Kirti Landry MD Assigned Heart and Vascular Provider 09/02/20 01/11/23 Cristal Terry PA-C [address] [place] [address] Physician Packaging Coordinator Cardiovascular Disease 05/10/23 Cristal Terry PA-C [address] [place] [address] Assigned Heart and Vascular Provider 08/24/23 documented as of this encounter
--- OUTSIDE RECORDS SUMMARY | 2024-09-22 12:59 | XMS_ITS | Encounter Summary ---
Author Organization [place] Address [address] [place] [address]. [place] [address] Care Team Providers Care Replanter Name Role Phone Chelsea Rudolph MD Primary Care Provider Anand Echevarria MD Primary Care Provider [phone] Kirti Landry MD Unavailable Unavailable Cristal Terry PA-C Unavailable [phone] Cristal Terry PA-C Unavailable [phone] Encounter Details Date Type Department Care Team (Late st Contact Info) Description 11/07/2007 Office Visit-[facility] [address] [place] [phone] Kirti Landry MD Social History Tobacco Use Types Packs/Day Years Used Date Smoking Tobacco: Never Alcohol Use Standard Drinks/Week Comments No 0 (1 standard drink = 0.6 oz pur e alcohol) Comments No Sex and Gender Information Value Date Recorded Sex Assigned at Female 08/06/2023 3:22 PM CDT Legal Sex Female 4:24 AM ELEVATOR MECHANIC APPRENTICE Gender Identity Female 08/06/2023 3:22 PM CDT [...] for about 2-3 hours. To my surprise sh e did not seek any medical attenuation. She [...] st Contact Info) Description 01/05/2025 9:45 AM ELEVATOR MECHANIC APPRENTICE Lab [facility] [address] [place] [address] [address] [place] [phone] 01/07/2025 7:45 AM ELEVATOR MECHANIC APPRENTICE Office Visit [address] [place] [address] Will Awad MD [address] [place] [address] documented as of this encounter Visit Diagnoses Not on filedocumented in this encounter Care Teams Replanter Relationship Specialty [place] [address] [place] [address] [id number] PCP - General 09/09/03 01/09/15 Anand Echevarria MD [address] [place] [address] [phone] PCP - General Family Practice 01/10/15 Kirti Landry MD Assigned Heart and Vascular Provider 09/02/20 01/11/23 Cristal Terry PA-C [address] [place] [address] Physician Biomed Tech Cardiovascular Disease 05/10/23 Cristal Terry PA-C [address] [place] [id number] Assigned Heart and Vascular Provider 08/24/23 documented as of this encounter
--- OUTSIDE RECORDS SUMMARY | 2024-09-22 12:59 | XMS_ITS | Encounter Summary ---
Author Organization [place] Address [address] [place] [address]. [place] [address] Care Team Providers Care Shredded Filler Cutter Operator Name Role Phone Alfonso Jin MD Primary Care Provider Anand Echevarria MD Primary Care Provider [phone] Kirti Landry MD Unavailable Unavailable Cristal Terry PA-C Unavailable [phone] Cristal Terry PA-C Unavailable [phone] Encounter Details Date Type Department Care Team (Late st Contact Info) Description 10/16/2004 Office Visit-[facility] [address] [place] [address] Unknown, MD Jae Social History Tobacco Use Types Packs/Day Years Used Date Smoking Tobacco: Never Alcohol Use Standard Drinks/Week Comments No 0 (1 standard drink = 0.6 oz pur e alcohol) Comments No Sex and Gender Information Value Date Recorded Sex Assigned at Female 08/06/2023 3:22 PM CDT Legal Sex Female 4:24 AM FLOUR DISTRIBUTOR Gender Identity Female 08/06/2023 3:22 PM CDT [...] CST Progress Note Created by: Jackson Wells [id number] DATE: 10/16/2004 JINA GREENE DATE OF : 1945 AGE: [age] years old Referring Physician: ALFONSO JIN Referring Clinic: [facility] CURRENT DIAGNOSES 1. - Arrhythmia, 427.9 2. [...] STOPPED TODAY: Premarin 0.3 mg IMPRESSIONS/PLAN </B><FONT FACE=Ribbon Hanking Machine Operator New>Jina Greene is a pleasant 59-year-old woman [...] to have transportation and will present to [facility] at 7 a.m. in a fasting state. <B><FONT FACE=System> Jackson Wells documented in this encounter Plan of Treatment Upcoming Encounters Date Type Department Care Team (Late st Contact Info) Description 01/05/2025 9:45 AM FLOUR DISTRIBUTOR Lab [address] [phone] 01/07/2025 7:45 AM FLOUR DISTRIBUTOR Office Visit [address] [place] [phone] Will Awad MD [address] [place] [address] documented as of this encounter Visit Diagnoses Not on filedocumented in this encounter Care Teams Shredded Filler Cutter Operator Relationship Specialty Start Date End Date Alfonso Jin MD [address] [place] [address] [phone] PCP - General 09/09/03 01/09/15 Anand Echevarria MD [address] [place] [address] [phone] PCP - General Family Practice 01/10/15 Kirti Landry MD Assigned Heart and Vascular Provider 09/02/20 01/11/23 Cristal Terry PA-C [address] [place] [id number] Physician Accounting Reconciliation Clerk Cardiovascular Disease 05/10/23 Cristal Terry PA-C [address] [place] [address] Assigned Heart and Vascular Provider 08/24/23 documented as of this encounter
--- OUTSIDE RECORDS SUMMARY | 2024-09-22 12:59 | XMS_ITS | Encounter Summary ---
Author Organization [place] Address [address] [place] [address]. [place] [address] Care Team Providers Care Personnel Clerks Supervisor Name Role Phone Alfonso Jin MD Primary Care Provider Anand Echevarria MD Primary Care Provider Kirti Landry MD Unavailable Unavailable Cristal Terry PA-C Unavailable [phone] Cristal Terry PA-C Unavailable [phone] Encounter Details Date Type Department Care Team (Late st Contact Info) Description 09/26/2004 Office Visit-[facility] [address] [place] [address] Unknown, MD Jae Social History Tobacco Use Types Packs/Day Years Used Date Smoking Tobacco: Never Alcohol Use Standard Drinks/Week Comments No 0 (1 standard drink = 0.6 oz pur e alcohol) Comments No Sex and Gender Information Value Date Recorded Sex Assigned at Female 08/06/2023 3:22 PM CDT Legal Sex Female 4:24 AM DRILL PRESS OPERATOR HELPER Gender Identity Female 08/06/2023 3:22 PM CDT [...] old Referring Physician: ALFONSO JIN Referring Clinic: [facility] CURRENT DIAGNOSES 1. - Arrhythmia, 427.9 2. [...] However, this is not documented in the [employer] system. Mrs. Greene does not have any [...] and place. MEDICATIONS UPDATED TODAY: IMPRESSIONS/PLAN </B><FONT FACE=Environmental Programs Specialist New> This is a very pleasant 59-year-old [...] 12 Lead EKG Today Hossein Echevarria M.D. Electronically signed by [facility], [facility] Data Conversion at 03/26/2014 1:12 AM CDT documented in this encounter Plan of Treatment Upcoming Encounters Date Type Department Care Team (Late st Contact Info) Description 01/05/2025 9:45 AM DRILL PRESS OPERATOR HELPER Lab [address] [place] [address] 01/07/2025 7:45 AM DRILL PRESS OPERATOR HELPER Office Visit [address] [place] [phone] Will Awad MD [address] [place] [address] documented as of this encounter Visit Diagnoses Not on filedocumented in this encounter Care Teams Personnel Clerks Supervisor Relationship Specialty Start Date End Date Alfonso Jin MD [address] [place] [address] [id number] PCP - General 09/09/03 01/09/15 Anand Echevarria MD [address] [place] [address] [id number] PCP - General Family Practice 01/10/15 Kirti Landry MD Assigned Heart and Vascular Provider 09/02/20 01/11/23 Cristal Terry PA-C [address] [place] [id number] Physician Manager Underwriting Cardiovascular Disease 05/10/23 Cristal Terry PA-C [address] [place] [address] Assigned Heart and Vascular Provider 08/24/23 documented as of this encounter
--- OUTSIDE RECORDS SUMMARY | 2024-09-22 12:59 | XMS_ITS | Encounter Summary ---
Author Organization [place] Address [address] [place] [address]. [place] [address] Care Team Providers Care Vise Hand Name Role Phone Chelsea Rudolph MD Primary Care Provider Anand Echevarria MD Primary Care Provider [phone] Kirti Landry MD Unavailable Unavailable Cristal Terry PA-C Unavailable [phone] Cristal Terry PA-C Unavailable [phone] Encounter Details Date Type Department Care Team (Late st Contact Info) Description 11/09/2008 Office Visit-[facility] [address] [place] [phone] Kirti Landyr MD Social History Tobacco Use Types Packs/Day Years Used Date Smoking Tobacco: Never Alcohol Use Standard Drinks/Week Comments No 0 (1 standard drink = 0.6 oz pur e alcohol) Comments No Sex and Gender Information Value Date Recorded Sex Assigned at Female 08/06/2023 3:22 PM CDT Legal Sex Female 4:24 AM METAL FURNITURE REPAIRER Gender Identity Female 08/06/2023 3:22 PM CDT [...] st Contact Info) Description 01/05/2025 9:45 AM METAL FURNITURE REPAIRER Lab [facility] [address] [place] [address] [address] [place] [phone] 01/07/2025 7:45 AM METAL FURNITURE REPAIRER Office Visit [address] [place] [phone] Will Awad MD [address] [email or web address] [address] [place], [place] [phone] documented as of this encounter Visit Diagnoses Not on filedocumented in this encounter Care Teams Vise Hand Relationship Specialty Start Date End Date Chelsea Rudolph MD [address] [place] [address] [phone] PCP - General 09/09/03 01/09/15 Anand Echevarria MD [address] [place] [address] PCP - General Family Practice 01/10/15 Kirti Landry MD Assigned Heart and Vascular Provider 09/02/20 01/11/23 Cristal Terry PA-C [address] [place] [address] Physician Wedding Photographer Cardiovascular Disease 05/10/23 Cristal Terry PA-C [address] [place] [address] Assigned Heart and Vascular Provider 08/24/23 documented as of this encounter
--- OUTSIDE RECORDS SUMMARY | 2024-09-22 12:59 | XMS_ITS | Encounter Summary ---
Author Organization [place] Address [address] [place] [address]. [place] [address] Care Team Providers Care Auto Mechanics Instructor Name Role Phone Chelsea Rudolph MD Primary Care Provider Anand Villarreal MD Primary Care Provider Kirti Landry MD Unavailable Unavailable Cristal Terry PA-C Unavailable [phone] Cristal Terry PA-C Unavailable [phone] Encounter Details Date Type Department Care Team (Late st Contact Info) Description 01/09/2010 Office Visit-[facility] [address] [place] [phone] Kirti Landry MD Social History Tobacco Use Types Packs/Day Years Used Date Smoking Tobacco: Never Alcohol Use Standard Drinks/Week Comments No 0 (1 standard drink = 0.6 oz pur e alcohol) Comments No Sex and Gender Information Value Date Recorded Sex Assigned at Female 08/06/2023 3:22 PM CDT Legal Sex Female 4:24 AM OBSTETRICAL NURSE Gender Identity Female 08/06/2023 3:22 PM CDT [...] st Contact Info) Description 01/05/2025 9:45 AM [address]ET[address]ICAL NURSE Lab [facility] [address] [place] [phone] 01/07/2025 7:45 AM OBSTETRICAL NURSE Office Visit [facility] [address] [place] [phone] Will Awad MD [address] [place] [id number] documented as of this encounter Visit Diagnoses Not on filedocumented in this encounter Care Teams Auto Mechanics Instructor Relationship Specialty Start Date End Date Chelsea Rudolph MD [address] [place] [address] [id number] PCP - General 09/09/03 01/09/15 Anand Villarreal MD [address] [place] [address] [id number] PCP - General Family Practice 01/10/15 Kirti Landry MD Assigned Heart and Vascular Provider 09/02/20 01/11/23 Cristal Terry PA-C [address] [place] [id number] Physician Biofuels Technology Manager Cardiovascular Disease 05/10/23 Cristal Terry PA-C [address] [place] [address] Assigned Heart and Vascular Provider 08/24/23 documented as of this encounter
--- OUTSIDE RECORDS SUMMARY | 2024-09-22 12:59 | XMS_ITS | Clinical Summary ---
Author Organization [facility] [place], [place] [address] Care Team Providers Care Guidance Counselor Name Role Phone Andi Echevarria MD Primary Care Provider [phone] Allergies No known active allergies Medications Medication Sig Dispensed Refills Start Date End Date Status flecainide (TAMBOCOR) 100 mg tablet Take 1/2 tablet ( 50mg) twice daily 05/25/2020 Active simvastatin (ZOCOR) 40 mg tablet Take 40 mg by mouth once daily. Active meloxicam 15 mg tablet 01/22/2021 Ac tive losartan-hydrochloroth iazide, 50-12.5 mg, (HYZAAR) 50-12.5 mg tablet Take 1 Tablet by mouth once daily. 05/15/2024 Active Family History * Patient is adopted Medical [...] Sign Reading Time Taken Comments Blood Pressure 146/83 05/26/2024 2:58 PM CDT Pulse 73 05/26/2024 2:58 PM CDT Temperature - - Respiratory Rate - - Oxygen Saturation 93% 05/26/2024 2:58 PM CDT Inhaled Oxygen Concentration - - Weight 80.7 kg (178 lb) 03/14/2021 2:57 PM CDT Height - - Body Mass Index - - Plan of Treatment Health Maintenance Due Date [...] 65+ (1 of 1 - PCV) 008 RSV vaccine for adults or pr egnancy (1 - 1-dose 75+ series) 2018 COVID-19 vaccine series ( season) 4 Influenza for age 65+ 07/12/2024 Care Teams Guidance Counselor Relationship Specialty Start Date End Date Andi Echevarria MD [address] [place] [address] PCP - General Family Practice 05/26/24
--- OUTSIDE RECORDS SUMMARY | 2024-09-22 12:59 | XMS_ITS | Encounter Summary ---
Author Organization [place] Address [address] [place] [address]. [place] [address] Care Team Providers Care Urologic Surgeon Name Role Phone Chelsea Rudolph MD Primary Care Provider Anand Echevarria MD Primary Care Provider Kirti Landry MD Unavailable Unavailable Cristal Terry PA-C Unavailable [phone] Cristal Terry PA-C Unavailable [phone] Encounter Details Date Type Department Care Team (Late st Contact Info) Description 10/29/2005 Office Visit-[facility] [address] [place] [address] Unknown, MD Jae Social History Tobacco Use Types Packs/Day Years Used Date Smoking Tobacco: Never Alcohol Use Standard Drinks/Week Comments No 0 (1 standard drink = 0.6 oz pur e alcohol) Comments No Sex and Gender Information Value Date Recorded Sex Assigned at Female 08/06/2023 3:22 PM CDT Legal Sex Female 4:24 AM FORM SETTER STEEL FORMS Gender Identity Female 08/06/2023 3:22 PM CDT [...] st Contact Info) Description 01/05/2025 9:45 AM FORM SETTER STEEL FORMS Lab [address] [place] [phone] 01/07/2025 7:45 AM FORM SETTER STEEL FORMS Office Visit [address] [place] [phone] Will Awad MD [address] [facility] [address] [place], [place] [address] documented as of this encounter Visit Diagnoses Not on filedocumented in this encounter Care Teams Urologic Surgeon Relationship Specialty Start Date End Date Chelsea Rudolph MD [address] [place], [place] [address] PCP - General 09/09/03 01/09/15 Anand Echevarria MD [address] [place], [place] [address] PCP - General Family Practice 01/10/15 Kirti Landry MD Assigned Heart and Vascular Provider 09/02/20 01/11/23 Cristal Terry PA-C [address] [place] [address] Physician Social Service Technician Cardiovascular Disease 05/10/23 Cristal Terry PA-C [address] [place] [address] Assigned Heart and Vascular Provider 08/24/23 documented as of this encounter
--- OUTSIDE RECORDS SUMMARY | 2024-09-22 12:59 | XMS_ITS | Encounter Summary ---
Author Organization [place] Address [address] [place] [address]. [place] [address] Care Team Providers Care Yoke Presser Name Role Phone Chelsea Rudolph MD Primary Care Provider Anand Villarreal MD Primary Care Provider [phone] Kirti Landry MD Unavailable Unavailable Cristal Terry PA-C Unavailable [phone] Cristal Terry PA-C Unavailable [phone] Encounter Details Date Type Department Care Team (Late st Contact Info) Description 01/27/2009 Office Visit-[facility] [address] [place] [phone] Kirti Landry MD Social History Tobacco Use Types Packs/Day Years Used Date Smoking Tobacco: Never Alcohol Use Standard Drinks/Week Comments No 0 (1 standard drink = 0.6 oz pur e alcohol) Comments No Sex and Gender Information Value Date Recorded Sex Assigned at Female 08/06/2023 3:22 PM CDT Legal Sex Female 4:24 AM CHHA Gender Identity Female 08/06/2023 3:22 PM CDT [...] mg-125 u, Dose/instruction [place] 3. Fish Oil 1000mg, 1 p.o. q.d. [...] - ; Exercise - some exercise; Occupation -[employer] and spends majority of time volunteering; Residence [...] st Contact Info) Description 01/05/2025 9:45 AM CHHA Lab [address] [place] [phone] 01/07/2025 7:45 AM CHHA Office Visit [address] [place] [phone] Will Awad MD [address] [place] [address] documented as of this encounter Visit Diagnoses Not on filedocumented in this encounter Care Teams Yoke Presser Relationship Specialty Start Date End Date Chelsea Rudolph MD [address] [place] [address] [phone] PCP - General 09/09/03 01/09/15 Anand Villarreal MD [address] [place] [address] [phone] PCP - General Family Practice 01/10/15 Kirti Landry MD Assigned Heart and Vascular Provider 09/02/20 01/11/23 Cristal Terry PA-C [address] [place] [id number] Physician Revenue Coordinator Cardiovascular Disease 05/10/23 Cristal Terry PA-C [address] [place] [address] Assigned Heart and Vascular Provider 08/24/23 documented as of this encounter
--- OUTSIDE RECORDS SUMMARY | 2024-09-22 12:59 | XMS_ITS | Encounter Summary ---
Author Organization [place] Address [address] [place] [address]. [place] [address] Care Team Providers Care Latexer Name Role Phone Alfonso Jin MD Primary Care Provider Anand Echevarria MD Primary Care Provider Kirti Landry MD Unavailable Unavailable Cristal Terry PA-C Unavailable [phone] Cristal Terry PA-C Unavailable [phone] Encounter Details Date Type Department Care Team (Late st Contact Info) Description 09/19/2004 Office Visit-[facility] [address] [place] [address] Unknown, MD Jae Social History Tobacco Use Types Packs/Day Years Used Date Smoking Tobacco: Never Alcohol Use Standard Drinks/Week Comments No 0 (1 standard drink = 0.6 oz pur e alcohol) Comments No Sex and Gender Information Value Date Recorded Sex Assigned at Female 08/06/2023 3:22 PM CDT Legal Sex Female 4:24 AM SHRIMP PEELER Gender Identity Female 08/06/2023 3:22 PM CDT [...] old Referring Physician: ALFONSO JIN Referring Clinic: [facility] CURRENT DIAGNOSES 1. - Arrhythmia, 427.9 2. [...] to time, person and place. IMPRESSIONS/PLAN </B><FONT FACE=Operating Systems Specialist New> Jina Greene is a 59-year-old woman [...] ORDERS 1. F/U with Hossein Echevarria MD [facility] 2. Event Recorder Today Shawna Mayes M.D. documented in this encounter Plan of Treatment Upcoming Encounters Date Type Department Care Team (Late st Contact Info) Description 01/05/2025 9:45 AM SHRIMP PEELER Lab [facility] [address] [place] [address] [address] [place] [address] 01/07/2025 7:45 AM SHRIMP PEELER Office Visit [address] [place] [phone] Will Awad MD [address] [facility] [address] [place], [place] [address] documented as of this encounter Visit Diagnoses Not on filedocumented in this encounter Care Teams Latexer Relationship Specialty Start Date End Date Alfonso Jin MD [address] [place] [address] [phone] PCP - General 09/09/03 01/09/15 Anand Echevarria MD [address] [place] [address] [phone] PCP - General Family Practice 01/10/15 Kirti Landry MD Assigned Heart and Vascular Provider 09/02/20 01/11/23 Cristal Terry PA-C [address] [place] [address] Physician Facilities Specialist Cardiovascular Disease 05/10/23 Cristal Terry PA-C [address] [place] [id number] Assigned Heart and Vascular Provider 08/24/23 documented as of this encounter
--- NOTE | 2024-09-22 13:00 | CT_ITS ---
Patient: CARMINA GREENE Facility:?[facility] Patient ID:?[id number] Site Patient ID:?[id number]. Site :?[id number] Study:?CT-ST Neck W/IV-09/22/2024 2:09:06 PM Ordering Physician:?Ted Noland Final Report: INDICATION: Vocal cord paralysis TECHNIQUE: CT soft tissue of the neck was acquired with 83 cc of Isovue 370 IV contrast. COMPARISON: None. FINDINGS: There is medialization of the left aryepiglottic fold with enlargement of the pyriformis sinus and laryngeal ventricle suggest left vocal cord paralysis. There is no obvious soft tissue mass the vocal cord. Pre-epiglottic and paraglottic fat planes are maintained. There are no concerning neck lymphadenopathy. Parotid and submandibular glands are normal in size and attenuation. Thyroid gland is homogeneous. Bilateral jugular veins are patent. No mass effect at the skull base. No concerning nodule or infiltration in the included lung tavares. Multilevel degenerative changes of the spine. IMPRESSION: Findings are concerning for left vocal cord paralysis. No obvious soft tissue mass or concerning cervical lymphadenopathy. Consider further evaluation with laryngoscopy and direct visualization. Please note that all CT scans at this facility use dose modulation, iterative reconstruction, and/or weight-based dosing when appropriate to reduce radiation dose to as low as reasonably achievable. Dictated by Scar Aldana MD @ 09/24/2024 7:13:30 AM Signed by:?Scar Aldana MD @09/24/2024 7:13:30 AM (Electronic Signature)
[2024-09-22 13:27] LABS: Creatinine* 0.7 mg/dL (0.5-1.5); Estimated Glomerular Filt Rate 87 ml/min
--- NOTE | 2024-09-22 13:45 | CRLHL7_ITS ---
For Patients: As a result of the Cures Act, medical imaging exams and procedure reports are released immediately into your electronic medical record. You may view this report before your referring provider. If you have questions, please contact your health care provider. INDICATION: Vocal cord paralysis. TECHNIQUE: Brain is scanned with sagittal T1 axial FLAIR T2 diffusion-weighted, susceptibility weighted and multi planer T1 weighted sequences before and after infusion of gadolinium contrast. 14.5 cc of Dotarem contrast utilized. FINDINGS: The ventricles are normal in size and configuration. There is mild prominence of subarachnoid spaces consistent with age. There is no evidence of recent ischemic infarction. There are no areas of diffusion restriction. There is no evidence of intracranial hemorrhage. There is no mass effect there are no subdural fluid collections. There are multiple small foci of nonenhancing FLAIR/T2 signal hyperintensity within the supratentorial white matter consistent with chronic microvascular ischemia or changes related to migraine. No enhancing intra-axial or extra-axial lesion. No pathologic cranial nerve enlargement or enhancement seen. The jugular foramen, posterior skullbase and rostral cervical spinal cord are normal as visualized. No paraspinal lesions seen. IMPRESSION: 1. No evidence of acute ischemic infarction, intracranial hemorrhage, mass or enhancing lesion. No intracranial or skullbase finding to explain the patient`s symptoms at this time. 2. White matter signal consistent with mild chronic microvascular ischemia or changes related to migraine. Dictated by Guy Sutherland MD @ 09/23/2024 10:34:06 AM (Electronically Signed)
== END 2024-09-22 12:56 | disposition home or self-care (01) ==
LOC: CT 12:56
PROVIDERS: PCP Family Medicine; Visit Provider Otolaryngology
DX: J38.01 Paralysis of vocal cords and larynx, unilateral (principal); I67.82 Cerebral ischemia
CPT/HCPCS: 36415; 70491; 70553; 82565; A9575; Q9967

== ENCOUNTER 2024-10-07 11:02 | Outpatient (CLI) | payer MEDICARE, BC, SELFPAY ==
--- OUTSIDE RECORDS SUMMARY | 2024-10-07 11:04 | XMS_ITS | Encounter Summary ---
Author Organization [place] Address [address] [place] [address]. [place] [address] Care Team Providers Care Life Enrichment Assistant Name Role Phone Anand Echevarria MD Primary Care Provider [phone] Cristal Terry PA-C Unavailable Cristal Terry PA-C Unavailable Reason for Visit * Reason Onset Date Comments Refill Request 01/30/2023 flacanide Encounter Details Date Type Department Care Team (Late st Contact Info) Description 01/30/2023 Telephone [facility] [address] [place] [address] Kirti Landry MD Refill Request (flacanide) Social History Tobacco Use Types Packs/Day Years Used Date Smoking Tobacco: Never Smokeless Tobacco: Never Alcohol Use Standard Drinks/Week Comments No 0 (1 standard drink = 0.6 oz pur e alcohol) Comments No Sex and Gender Information Value Date Recorded Sex Assigned at Female 08/06/2023 3:22 PM CDT Legal Sex Female 4:24 AM RFID DEVELOPER Gender Identity Female 08/06/2023 3:22 PM CDT [...] Atiya Reno - 01/30/2023 9:30 AM CDT [facility] Call Center Phone Message May a detailed message be left on voicemail: yes Reason for Call: Medication Refill Request Has the patient contacted the pharmacy for the refill? Yes Name of medication being requested: amanda Provider who prescribed the medication: Gris Pharmacy: [facility] [address] [place], [place] [address] Date medication is needed: 01/30 Action Taken: Other: cardio Travel Screening: Not Applicable documented in this encounter Plan of Treatment Upcoming Encounters Date Type Department Care Team (Late st Contact Info) Description 01/05/2025 9:45 AM RFID DEVELOPER Lab [address] [phone] 01/07/2025 7:45 AM RFID DEVELOPER Office Visit [address] [place] [phone] Will Awad MD [address] [place] [phone] documented as of this encounter Visit Diagnoses Not on filedocumented in this encounter Care Teams Life Enrichment Assistant Relationship Specialty Start Date End Date Anand Echevarria MD PCP - General Family Practice 01/10/15 Cristal Terry PA-C [address] [place] [phone] Physician Nurse Chemical Dependency Cardiovascular Disease 05/10/23 Cristal Terry PA-C [address] [place] [address] Assigned Heart and Vascular Provider 08/24/23 documented as of this encounter
--- OUTSIDE RECORDS SUMMARY | 2024-10-07 11:04 | XMS_ITS | Referral Summary ---
Author Organization [place] Address [address] [place] [address] Care Team Providers Care Inside Sales Consultant Name Role Phone Anand Echevarria MD Primary Care Provider [phone] Cristal Terry PA-C Unavailable Cristal Terry PA-C Unavailable [phone] Encounters Date Type Department Care Team Description 08/04/2024 Telephone [facility] [address] [place] [address] Cierra Blackburn, SHARRI ordres from Last 3 Months Allergies Active Allergy Reactions Criticality Noted Date Comments No Known Drug Allergy 07/20/2003 Medications simvastatin (ZOCOR) 40 MG tablet Take 40 mg by mouth At Bedtime Active MELOXICAM PO Take 15 mg by mouth daily Active [place]-3 Fatty Acids (FISH OIL) 1200 MG capsule [...] PM CDT Legal Sex Female 4:24 AM HONEYCOMB DECAPPER Gender Identity Female 08/06/2023 3:22 PM CDT [...] 69 08/13/2023 9:56 AM CDT Temperature 35.9 C (96.6 F) 09/18/2017 7:47 AM HONEYCOMB DECAPPER Respiratory Rate 18 09/18/2017 7:47 AM HONEYCOMB DECAPPER Oxygen Saturation 96% 08/13/2023 9:56 AM CDT Inhaled Oxygen Concentration - - Weight 78.9 kg (174 lb) 08/13/2023 9:56 AM CDT Height 160 cm (5' 3) 08/13/2023 9:56 AM CDT Body Mass Index 30.82 08/13/2023 9:56 AM CDT Plan of Treatment Upcoming Encounters Date Type Department Care Team (Late st Contact Info) Description 01/05/2025 9:45 AM HONEYCOMB DECAPPER Lab [facility] [address] [place] [address] [address] [place] [phone] 01/07/2025 7:45 AM HONEYCOMB DECAPPER Office Visit [address] [place] [address] Will Awad MD [address] [place] [address] Procedures Procedure Name Priority Date/Time Associated Diagnosis Comments LIPID PROFILE Routine 09/17/2022 9:40 AM HONEYCOMB DECAPPER C DEXA, BONE DENSITY, AXIAL SKEL Routine 03/26/2004 Symptomatic Female Climacteric State from Last 3 Months or Most Recently Relevant to Health Maintenance Results * (ABNORMAL) Lipid Profile (09/17/2022 9:40 AM HONEYCOMB DECAPPER) Triglycerides (External) 153(H) 40 - 149 mg/dL NON-INTERFACE D (ONBASE SCANS) Cholesterol (External) 171 90 - 199 mg/dL NON-INTERFACE D (ONBASE SCANS) LDL Cholesterol Calculated (External) 96 <100 mg/dL NON-INTERFACE D (ONBASE SCANS) HDL Cholesterol (External) 44(L) >=50 mg/dL NON-INTERFACE D (ONBASE SCANS) Blood BLOOD SPECIMEN / Unknown 09/17/2022 9:40 AM HONEYCOMB DECAPPER Narrative [facility] PFT - 08/13/2023 9:44 AM CDT Verified by Link Chen on 08/13/2023. us Anand Echevarria MD LAB - BLOOD ORDERABLES Edited Result - Final BREEZE PFT NON-INTERFACED (ONBASE SCANS) * DEXA, BONE DENSITY, AXIAL SKEL (03/26/2004) Anatomical Region Laterality Modality Bone Mineral Den sity Impressions 03/26/2004 BONE DENSITOMETRY [facility] 03/22/2004 PATIENT: Jina Garcia CHART: [id number] : 1945 AGE: [age] year old SEX: female REFERRING PHYSICIAN: Chelsea Rudolph M.D. PROCEDURE: Bone density scanning was performed using DEXA technology performed on a [employer] scanner. Reporting is completed in the form of a T-score. The T-score represents the standard deviation from peak bone mass based on a young healthy adult. REFERENCE T-SCORES: Normal Greater than -1.0 Osteopenia -1.0 to -2.5 Osteoporosis Less than -2.5 RISK FACTORS: Early menopause age 28 CURRENT TREATMENT: Calcium with Vitamin D, Estrogen FINDINGS: Lumbar Spine (L2-L4): T-score -0.01 Femoral Neck: T-score -1.02 IMPRESSION: Borderline osteopenia. Zuly Marie M.D. Electronically signed us Chelsea Rudolph MD SPECIAL IMAGING STUDIES Final Result from Last 3 Months or Most Recently Relevant to Health Maintenance Insurance [place] [address] [place] [id number] BCBS [employer] MEDICARE [facility] [employer] Care Teams Inside Sales Consultant Relationship Specialty Start Date End Date Anand Echevarria MD PCP - General Family Practice 01/10/15 Cristal Terry PA-C [address] [place] [address] Physician Ironworker Apprentice Shop Cardiovascular Disease 05/10/23 Cristal Terry PA-C [address] [facility] [address] [place] [address] Assigned Heart and Vascular Provider 08/24/23
--- OUTSIDE RECORDS SUMMARY | 2024-10-07 11:04 | XMS_ITS | Clinical Summary ---
Author Organization [place] Address [address] [place] [address] Care Team Providers Care Trailer Technician Name Role Phone Anand Echevarria MD Primary Care Provider [phone] Cristal Terry PA-C Unavailable Cristal Terry PA-C Unavailable Allergies Active Allergy Reactions Criticality Noted Date Comments No Known Drug Allergy 07/20/2003 Medications simvastatin (ZOCOR) 40 MG tablet Take 40 mg by mouth At Bedtime Active MELOXICAM PO Take 15 mg by mouth daily Active [place]-3 Fatty Acids (FISH OIL) 1200 MG capsule [...] 02/20/2005 Overview (02/20/2005): intermittent - going to [facility] Thyroiditis 07/26/2004 Overview (08/11/2015): [...] Type Department Care Team Description 08/04/2024 Telephone [facility] [place] [id number] [facility] [address] [place] [address] Cierra Blackburn, RN ordres from Last 3 Months Immunizations Name Administration Dates Next Due Influenza (IIV3) PF 09/10/2003 Family History * Patient is adopted Medical History Relation Comments C.A.D. Maternal Uncle 1 from [place] re lated to diabetes type II Diabetes [...] PM CDT Legal Sex Female 4:24 AM BUSINESS SPECIALIST Gender Identity Female 08/06/2023 3:22 PM [...] 35.9 C (96.6 F) 09/18/2017 7:47 AM BUSINESS SPECIALIST Respiratory Rate 18 09/18/2017 7:47 AM BUSINESS SPECIALIST Oxygen Saturation 96% 08/13/2023 9:56 AM CDT Inhaled Oxygen Concentration - - Weight 78.9 kg (174 lb) 08/13/2023 9:56 AM CDT Height 160 cm (5' 3) 08/13/2023 9:56 AM CDT Body Mass Index 30.82 08/13/2023 9:56 AM CDT Plan of Treatment Upcoming Encounters Date Type Department Care Team (Late st Contact Info) Description 01/05/2025 9:45 AM BUSINESS SPECIALIST Lab [facility] [address] [facility] [address] [place] [address] 01/07/2025 7:45 AM BUSINESS SPECIALIST Office Visit [facility] [address] [facility] [facility] [address] [place] [address] Will Awad MD [address] [facility] [address] [place] [address] Health Maintenance Due Date Last Done Comments [...] Comments LIPID PROFILE Routine 09/17/2022 9:40 AM BUSINESS SPECIALIST C DEXA, BONE DENSITY, AXIAL SKEL Routine 03/26/2004 Symptomatic Female Climacteric State from Last 3 Months or Most Recently Relevant to Health Maintenance Results * (ABNORMAL) Lipid Profile (09/17/2022 9:40 AM BUSINESS SPECIALIST) Triglycerides (External) 153(H) 40 - 149 mg/dL NON-INTERFACE D (ONBASE SCANS) Cholesterol (External) 171 90 - 199 mg/dL NON-INTERFACE D (ONBASE SCANS) LDL Cholesterol Calculated (External) 96 <100 mg/dL NON-INTERFACE D (ONBASE SCANS) HDL Cholesterol (External) 44(L) >=50 mg/dL NON-INTERFACE D (ONBASE SCANS) Blood BLOOD SPECIMEN / Unknown 09/17/2022 9:40 AM BUSINESS SPECIALIST Narrative [place] PFT - 08/13/2023 9:44 AM CDT Verified by Link Chen on 08/13/2023. us Anand Echevarria MD LAB - BLOOD ORDERABLES Edited Result - Final [place]OM[place]UN[place] PFT NON-INTERFACED (ONBASE SCANS) * DEXA, BONE DENSITY, AXIAL SKEL (03/26/2004) Anatomical Region Laterality Modality Bone Mineral Den sity Impressions 03/26/2004 BONE DENSITOMETRY [facility] 03/22/2004 PATIENT: Jina Garcia CHART: [id number] : 1945 AGE: [age] year old SEX: female REFERRING PHYSICIAN: Chelsea Rudolph M.D. PROCEDURE: Bone density scanning was performed using DEXA technology performed on a howsimple scanner. Reporting is completed in the form [...] signed Chelsea Rudolph MD SPECIAL IMAGING STUDIES Final Result from Last 3 Months or Most Recently Relevant to Health Maintenance Insurance MEDICARE [facility] [place] [id number] [place] [phone] MEDICARE [facility] [employer] BL[employer] Care Teams Trailer Technician Relationship Specialty Start Date End Date Anand Echevarria MD PCP - General Family Practice 01/10/15 Cristal Terry PA-C [address] [place] [address] Physician Traveling Construction Superintendent Cardiovascular Disease 05/10/23 Cristal Terry PA-C [address] [place] [address] Assigned Heart and Vascular Provider 08/24/23
--- OUTSIDE RECORDS SUMMARY | 2024-10-07 11:04 | XMS_ITS | Encounter Summary ---
Author Organization [place] Address [address] [place] [address]. [place] [address] Care Team Providers Care Neck Band Maker Name Role Phone Anand Echevarria MD Primary Care Provider Cristal Terry PA-C Unavailable Cristal Terry PA-C Unavailable [phone] Reason for Visit * Reason Onset Date Comments ordres 08/04/2024 Encounter Details Date Type Department Care Team (Late st Contact Info) Description 08/04/[address] [facility] [address] [place] [address] Cierra Blackburn, RN ordres Social [...] PM CDT Legal Sex Female 4:24 AM MACHINE MOLDER Gender Identity Female 08/06/2023 3:22 PM CDT [...] st Contact Info) Description 01/05/2025 9:45 AM MACHINE MOLDER Lab [facility] [address] [facility] [address] [place] [phone] 01/07/2025 7:45 AM MACHINE MOLDER Office Visit [facility] [address] [facility] [address] [place] [phone] Will Awad MD [address] [place] [id number] Scheduled Orders Name Type Priority Associated Diagnoses Orde r Schedule CBC with platelets differential Lab Panel Routine Paroxysmal atrial fibrillation (H) Expected: 01/07/2025 (Approximate), Expires: 08/04/2025 Basic metabolic panel Lab Routine Paroxysmal atrial fibrillation (H) Expected: 01/07/2025 (Approximate), Expires: 08/04/2025 documented as of this encounter Visit Diagnoses Diagnosis Paroxysmal atrial fibrillation (H)- Primary Atrial fibrillation documented in this encounter Care Teams Neck Band Maker Relationship Specialty Start Date End Date Anand Echevarria MD PCP - General Family Practice 01/10/15 Cristal Terry PA-C [address] [place] [address] Physician Income Tax Manager Cardiovascular Disease 05/10/23 Cristal Terry PA-C [address] [place] [id number] Assigned Heart and Vascular Provider 08/24/23 documented as of this encounter
--- OUTSIDE RECORDS SUMMARY | 2024-10-07 11:04 | XMS_ITS | Encounter Summary ---
Author Organization [place] Address [facility] [place] [address] Care Team Providers Care Junior Business Analyst Name Role Phone Anand Echevarria MD Primary Care Provider [phone] Kirti Landry MD Unavailable Unavailable Cristal Terry PA-C Unavailable [phone] Cristal Terry PA-C Unavailable [phone] Encounter Details Date Type Department Care Team (Late st Contact Info) Description 09/17/2022 External Order Results [facility] [address] [place] [address] Outside, Provider Social History Tobacco Use Types Packs/Day Years Used Date Smoking Tobacco: Never Smokeless Tobacco: Never Alcohol Use Standard Drinks/Week Comments No 0 (1 standard drink = 0.6 oz pur e alcohol) Comments No Sex and Gender Information Value Date Recorded Sex Assigned at Female 08/06/2023 3:22 PM CDT Legal Sex Female 4:24 AM STAFF REGISTERED NURSE Gender Identity Female 08/06/2023 3:22 PM [...] st Contact Info) Description 01/05/2025 9:45 AM STAFF REGISTERED NURSE Lab [facility] [address] [facility] [address] [place] [address] 01/07/2025 7:45 AM STAFF REGISTERED NURSE Office Visit [facility] [address] [facility] [address] [place] [address] Will Awad MD [address] [facility] [address] [place] [address] documented as of this encounter Procedures Procedure Name Priority Date/Time Associated Diagnosis Comments LIPID PROFILE Routine 09/17/2022 9:40 AM STAFF REGISTERED NURSE BASIC METABOLIC PANEL Routine 09/17/2022 9:40 AM STAFF REGISTERED NURSE documented in this encounter Results * (ABNORMAL) Basic metabolic panel (09/17/2022 9:40 AM STAFF REGISTERED NURSE) Sodium (External) 138 135 - 149 mmol/L [...] BLOOD SPECIMEN / Unknown 09/17/2022 9:40 AM STAFF REGISTERED NURSE Narrative [facility] PFT - 08/13/2023 9:44 AM CDT Verified by Link Chen on 08/13/2023. us Anand Echevarria MD LAB - BLOOD ORDERABLES Edited Result - Final Performing Organization Address City/[facility]/ZIP Co de Phone Number [place] PFT NON-INTERFACED (ONBASE SCANS) * (ABNORMAL) Lipid Profile (09/17/2022 9:40 AM STAFF REGISTERED NURSE) Triglycerides (External) 153(H) 40 - 149 mg/dL NON-INTERFACE D (ONBASE SCANS) Cholesterol (External) 171 90 - 199 mg/dL NON-INTERFACE D (ONBASE SCANS) LDL Cholesterol Calculated (External) 96 <100 mg/dL NON-INTERFACE D (ONBASE SCANS) HDL Cholesterol (External) 44(L) >=50 mg/dL NON-INTERFACE D (ONBASE SCANS) Blood BLOOD SPECIMEN / Unknown 09/17/2022 9:40 AM STAFF REGISTERED NURSE Narrative TOMIEZE PFT - 08/13/2023 9:44 AM CDT Verified by Link Chen on 08/13/2023. us Anand Echevarria MD LAB - BLOOD ORDERABLES Edited Result - Final Performing Organization Address City/[facility]/ZIP Co de Phone Number [place] PFT NON-INTERFACED (ONBASE SCANS) documented in this encounter Visit Diagnoses Not on filedocumented in this encounter Care Teams Junior Business Analyst Relationship Specialty Start Date End Date Anand Echevarria MD PCP - General Family Practice 01/10/15 Kirti Landry MD Assigned Heart and Vascular Provider 09/02/20 01/11/23 Cristal Terry PA-C [address] [place] [address] Physician Welding Machine Operator Plasma Arc Cardiovascular Disease 05/10/23 Cristal Terry PA-C [address] [place] [address] Assigned Heart and Vascular Provider 08/24/23 documented as of this encounter
--- OUTSIDE RECORDS SUMMARY | 2024-10-07 11:05 | XMS_ITS | Encounter Summary ---
Author Organization [place] Address [address] [place] [address]. [place] [address] Care Team Providers Care Taxicab Dispatcher Name Role Phone Chelsea Rudolph MD Primary Care Provider Anand Echevarria MD Primary Care Provider [phone] Kirti Landry MD Unavailable Unavailable Cristal Terry PA-C Unavailable [phone] Cristal Terry PA-C Unavailable [phone] Encounter Details Date Type Department Care Team (Late st Contact Info) Description 11/14/2006 Office Visit-[facility] [address] [place] [address] Kirti Landry MD Social History Tobacco Use Types Packs/Day Years Used Date Smoking Tobacco: Never Alcohol Use Standard Drinks/Week Comments No 0 (1 standard drink = 0.6 oz pur e alcohol) Comments No Sex and Gender Information Value Date Recorded Sex Assigned at Female 08/06/2023 3:22 PM CDT Legal Sex Female 4:24 AM PULL OVER Gender Identity Female 08/06/2023 3:22 PM CDT [...] st Contact Info) Description 01/05/2025 9:45 AM PULL OVER Lab [facility] [address] [facility] [address] [place] [phone] 01/07/2025 7:45 AM PULL OVER Office Visit [facility] [address] [facility] [address] [place] [address] Will Awad MD [address] [place] [address] documented as of this encounter Visit Diagnoses Not on filedocumented in this encounter Care Teams Taxicab Dispatcher Relationship Specialty Start Date End Date Chelsea Rudolph MD [address] [place] [address] PCP - General 09/09/03 01/09/15 [place] [address] [place] [address] PCP - General Family Practice 01/10/15 Kirti Landry MD Assigned Heart and Vascular Provider 09/02/20 01/11/23 Cristal Terry PA-C [address] [place] [address] Physician Sewage Plant Operator Cardiovascular Disease 05/10/23 Cristal Terry PA-C [address] [place] [address] Assigned Heart and Vascular Provider 08/24/23 documented as of this encounter
--- OUTSIDE RECORDS SUMMARY | 2024-10-07 11:05 | XMS_ITS | Clinical Summary ---
Author Organization [facility] Address [place], [place] [address] Care Team Providers Care Shrimp Trawler Name Role Phone Andi Echevarria MD Primary Care Provider [phone] Allergies No known active allergies Medications Medication [...] Influenza for age 65+ 07/12/2024 Care Teams Shrimp Trawler Relationship Specialty Start Date End Date Andi Echevarria MD [address] [place] [address] PCP - General Family Practice 05/26/24
--- OUTSIDE RECORDS SUMMARY | 2024-10-07 11:05 | XMS_ITS | Encounter Summary ---
Author Organization [place] Address [address] [place] [address]. [place] [address] Care Team Providers Care Digital Sales Executive Name Role Phone Chelsea Rudolph MD Primary Care Provider Anand Villarreal MD Primary Care Provider Kirti Landry MD Unavailable Unavailable Cristal Terry PA-C Unavailable [phone] Cristal Terry PA-C Unavailable [phone] Encounter Details Date Type Department Care Team (Late st Contact Info) Description 01/21/2012 Office Visit-[facility] [address] [place] [address] Kirti Landry MD Social History Tobacco Use Types Packs/Day Years Used Date Smoking Tobacco: Never Alcohol Use Standard Drinks/Week Comments No 0 (1 standard drink = 0.6 oz pur e alcohol) Comments No Sex and Gender Information Value Date Recorded Sex Assigned at Female 08/06/2023 3:22 PM CDT Legal Sex Female 4:24 AM SUPERVISOR EVAPORATOR Gender Identity Female 08/06/2023 3:22 PM CDT [...] THE CHRONICALLY ILL CURRENT DIAGNOSES 1. - Syncope, 780.2 2. [...] year 2. F/U with Clarice Nuñez, MSN, [facility] 1 year 3. 12 Lead EKG 1 year 4. 12 Lead EKG 2 years Kirti Landry M.D. documented in this encounter Plan of Treatment Upcoming Encounters Date Type Department Care Team (Late st Contact Info) Description 01/05/2025 9:45 AM SUPERVISOR EVAPORATOR Lab [address] [place] [phone] 01/07/2025 7:45 AM SUPERVISOR EVAPORATOR Office Visit [address] [address] Will Awad MD [address] [place] [address] documented as of this encounter Visit Diagnoses Not on filedocumented in this encounter Care Teams Digital Sales Executive Relationship Specialty Start Date End Date Chelsea Rudolph MD [address] [place] [id number] PCP - General 09/09/03 01/09/15 Anand Villarreal MD [address] [place] [address] PCP - General Family Practice 01/10/15 Kirti Landry MD Assigned Heart and Vascular Provider 09/02/20 01/11/23 Cristal Terry PA-C [address] [place] [address] Physician Garbage Stoker Cardiovascular Disease 05/10/23 Cristal Terry PA-C [address] [place] [address] Assigned Heart and Vascular Provider 08/24/23 documented as of this encounter
--- OUTSIDE RECORDS SUMMARY | 2024-10-07 11:05 | XMS_ITS | Encounter Summary ---
Author Organization [place] Address [address] [place] [address]. [place] [address] Care Team Providers Care Finish Sander Name Role Phone Alfonso Jin MD Primary Care Provider Anand Echevarria MD Primary Care Provider Kirti Landry MD Unavailable Unavailable Cristal Terry PA-C Unavailable [phone] Cristal Terry PA-C Unavailable [phone] Encounter Details Date Type Department Care Team (Late st Contact Info) Description 10/16/2004 Office Visit-[facility] [address] [place] [address] Unknown, MD Jae Social History Tobacco Use Types Packs/Day Years Used Date Smoking Tobacco: Never Alcohol Use Standard Drinks/Week Comments No 0 (1 standard drink = 0.6 oz pur e alcohol) Comments No Sex and Gender Information Value Date Recorded Sex Assigned at Female 08/06/2023 3:22 PM CDT Legal Sex Female 4:24 AM ANNUAL GIVING DIRECTOR Gender Identity Female 08/06/2023 3:22 PM CDT [...] CST Progress Note Created by: Jackson Wells [id number] DATE: 10/16/2004 JINA GREENE DATE OF : 1945 AGE: [age] years old Referring Physician: ALFONSO JIN Referring Clinic: [facility] CURRENT DIAGNOSES 1. - Arrhythmia, 427.9 [...] STOPPED TODAY: Premarin 0.3 mg IMPRESSIONS/PLAN </B><FONT FACE=Clerk Carrier New>Jina Greene is a pleasant 59-year-old woman [...] to have transportation and will present to [facility] at 7 a.m. in a fasting state. <B><FONT FACE=System> Jackson Wells documented in this encounter Plan of Treatment Upcoming Encounters Date Type Department Care Team (Late st Contact Info) Description 01/05/2025 9:45 AM ANNUAL GIVING DIRECTOR Lab [address] [phone] 01/07/2025 7:45 AM ANNUAL GIVING DIRECTOR Office Visit [address] [place] [address] Will Awad MD [address] [place] [id number] documented as of this encounter Visit Diagnoses Not on filedocumented in this encounter Care Teams Finish Sander Relationship Specialty Start Date End Date Alfonso Jin MD [address] [place] [address] PCP - General 09/09/03 01/09/15 Anand Echevarria MD [address] [place] [id number] PCP - General Family Practice 01/10/15 Kirti Landry MD Assigned Heart and Vascular Provider 09/02/20 01/11/23 Cristal Terry PA-C [address] [place] [id number] Physician Quality Consultant Cardiovascular Disease 05/10/23 Cristal Terry PA-C [address] [place] [id number] Assigned Heart and Vascular Provider 08/24/23 documented as of this encounter
--- OUTSIDE RECORDS SUMMARY | 2024-10-07 11:05 | XMS_ITS | Encounter Summary ---
Author Organization [place] Address [address] [place] [address]. [place] [address] Care Team Providers Care Wire Spinner Name Role Phone Chelsea Rudolph MD Primary Care Provider Anand Villarreal MD Primary Care Provider Kirti Landry MD Unavailable Unavailable Cristal Terry PA-C Unavailable [phone] Cristal Terry PA-C Unavailable [phone] Encounter Details Date Type Department Care Team (Late st Contact Info) Description 01/09/2010 Office Visit-[facility] [address] [place] [phone] Kirti Landry MD Social History Tobacco Use Types Packs/Day Years Used Date Smoking Tobacco: Never Alcohol Use Standard Drinks/Week Comments No 0 (1 standard drink = 0.6 oz pur e alcohol) Comments No Sex and Gender Information Value Date Recorded Sex Assigned at Female 08/06/2023 3:22 PM CDT Legal Sex Female 4:24 AM REEL SYSTEM OPERATOR Gender Identity Female 08/06/2023 3:22 PM CDT [...] st Contact Info) Description 01/05/2025 9:45 AM REEL SYSTEM OPERATOR Lab [facility] [address] [place] [phone] 01/07/2025 7:45 AM REEL SYSTEM OPERATOR Office Visit [facility] [address] [place] [address] Will Awad MD [address] [place] [address] documented as of this encounter Visit Diagnoses Not on filedocumented in this encounter Care Teams Wire Spinner Relationship Specialty Start Date End Date Chelsea Rudolph MD [address] [place] [id number] PCP - General 09/09/03 01/09/15 Anand Villarreal MD [address] [place] [id number] PCP - General Family Practice 01/10/15 Kirti Landry MD Assigned Heart and Vascular Provider 09/02/20 01/11/23 Cristal Terry PA-C [address] [place] [address] Physician Community Development Manager Cardiovascular Disease 05/10/23 Cristal Terry PA-C [address] [place] [address] Assigned Heart and Vascular Provider 08/24/23 documented as of this encounter
--- OUTSIDE RECORDS SUMMARY | 2024-10-07 11:05 | XMS_ITS | Encounter Summary ---
Author Organization [facility] Address [address] [place] [address]. [place] [address] Care Team Providers Care Flag Car Driver Name Role Phone Chelsea Rudolph MD Primary Care Provider Anand Villarreal MD Primary Care Provider [phone] Kirti Landry MD Unavailable Unavailable rCistal Terry PA-C Unavailable [phone] Cristal Terry PA-C Unavailable [phone] Encounter Details Date Type Department Care Team (Late st Contact Info) Description 01/11/2014 Office Visit-[facility] [address] [place] [phone] Kirti Landry MD Social History Tobacco Use Types Packs/Day Years Used Date Smoking Tobacco: Never Alcohol Use Standard Drinks/Week Comments No 0 (1 standard drink = 0.6 oz pur e alcohol) Comments No Sex and Gender Information Value Date Recorded Sex Assigned at Female 08/06/2023 3:22 PM CDT Legal Sex Female 4:24 AM ATTACHER Gender Identity Female 08/06/2023 3:22 PM CDT [...] AGE: [age] years old Referring Physician: ANAND VILLRAREAL Referring Clinic: [facility] CURRENT DIAGNOSES 1. - Ventricular tachycardia, 427.1 [...] po PRN when in atrial fib 4. Vaxqmkndxng-Hdsnwobqauo-DHV 500-500-66.7 mg tablet, 2 p.o. daily 5. [...] st Contact Info) Description 01/05/2025 9:45 AM ATTACHER Lab [address] [place] [phone] 01/07/2025 7:45 AM ATTACHER Office Visit [address] [place] [phone] Will Awad MD [address] [place], [place] [phone] documented as of this encounter Visit Diagnoses Not on filedocumented in this encounter Care Teams Flag Car Driver Relationship Specialty Start Date End Date Chelsea Rudolph MD [address] [place] [address] [phone] PCP - General 09/09/03 01/09/15 Anand Villarreal MD [address] [place] [address] PCP - General Family Practice 01/10/15 Kirti Landry MD Assigned Heart and Vascular Provider 09/02/20 01/11/23 Cristal Terry PA-C [address] [place] [id number] Physician Teacher Assistant Cardiovascular Disease 05/10/23 Cristal Terry PA-C [address] [place] [id number] Assigned Heart and Vascular Provider 08/24/23 documented as of this encounter
--- OUTSIDE RECORDS SUMMARY | 2024-10-07 11:05 | XMS_ITS | Encounter Summary ---
Author Organization [facility] Address [address] [place] [address]. [place] [address] Care Team Providers Care Electrical Accessories I Assembler Name Role Phone Chelsea Rudolph MD Primary Care Provider Anand Echevarria MD Primary Care Provider [phone] Kirti Landry MD Unavailable Unavailable Cristal Terry PA-C Unavailable [phone] Cristal Terry PA-C Unavailable [phone] Encounter Details Date Type Department Care Team (Late st Contact Info) Description 11/09/2008 Office Visit-[facility] [address] [place] [phone] Kirti Landry MD Social History Tobacco Use Types Packs/Day Years Used Date Smoking Tobacco: Never Alcohol Use Standard Drinks/Week Comments No 0 (1 standard drink = 0.6 oz pur e alcohol) Comments No Sex and Gender Information Value Date Recorded Sex Assigned at Female 08/06/2023 3:22 PM CDT Legal Sex Female 4:24 AM JET INSPECTOR Gender Identity Female 08/06/2023 3:22 PM CDT [...] st Contact Info) Description 01/05/2025 9:45 AM JET INSPECTOR Lab [facility] [address] [place] [address] [address] [place] [phone] 01/07/2025 7:45 AM JET INSPECTOR Office Visit [address] [place] [phone] Will Awad MD [address] [facility] [address] [place], [place] [address] documented as of this encounter Visit Diagnoses Not on filedocumented in this encounter Care Teams Electrical Accessories I Assembler Relationship Specialty Start Date End Date Chelsea Rudolph MD [address] [place] [address] [phone] PCP - General 09/09/03 01/09/15 Anand Echevarria MD [address] [place] [address] PCP - General Family Practice 01/10/15 Kirti Landry MD Assigned Heart and Vascular Provider 09/02/20 01/11/23 Cristal Terry PA-C [address] [place] [address] Physician Regional Agronomist Cardiovascular Disease 05/10/23 Cristal Terry PA-C [address] [place] [address] Assigned Heart and Vascular Provider 08/24/23 documented as of this encounter
--- OUTSIDE RECORDS SUMMARY | 2024-10-07 11:05 | XMS_ITS | Encounter Summary ---
Author Organization [facility] Address [address] [place] [address]. [place] [address] Care Team Providers Care Refrigerated National Truck Driver Name Role Phone Chelsea Rudolph MD Primary Care Provider Anand Echevarria MD Primary Care Provider Kirti Landry MD Unavailable Unavailable Cristal Terry PA-C Unavailable [phone] Cristal Terry PA-C Unavailable [phone] Encounter Details Date Type Department Care Team (Late st Contact Info) Description 10/29/2005 Office Visit-[facility] [address] [place] [address] Unknown, MD Jae Social History Tobacco Use Types Packs/Day Years Used Date Smoking Tobacco: Never Alcohol Use Standard Drinks/Week Comments No 0 (1 standard drink = 0.6 oz pur e alcohol) Comments No Sex and Gender Information Value Date Recorded Sex Assigned at Female 08/06/2023 3:22 PM CDT Legal Sex Female 4:24 AM BUSINESS OBJECTS Gender Identity Female 08/06/2023 3:22 PM CDT [...] Contact Info) Description 01/05/2025 9:45 AM BUSINESS OBJECTS Lab [address] [place] [phone] 01/07/2025 7:45 AM BUSINESS OBJECTS Office Visit [address] [place] [phone] Will Awad MD [address] [facility] [address] [place], [place] [address] documented as of this encounter Visit Diagnoses Not on filedocumented in this encounter Care Teams Refrigerated National Truck Driver Relationship Specialty Start Date End Date Chelsea Rudolph MD [address] [place], [place] 2[address] PCP - General 09/09/03 01/09/15 Anand Echevarria MD [address] [place], [place] 6[address] PCP - General Family Practice 01/10/15 Kirti Landry MD Assigned Heart and Vascular Provider 09/02/20 01/11/23 Cristal Terry PA-C [address] [place] [address] Physician Terminal Clerk Cardiovascular Disease 05/10/23 Cristal Terry PA-C [address] [place] [address] Assigned Heart and Vascular Provider 08/24/23 documented as of this encounter
--- OUTSIDE RECORDS SUMMARY | 2024-10-07 11:05 | XMS_ITS | Encounter Summary ---
Author Organization [facility] Address [address] [place] [address]. [place] [address] Care Team Providers Care Greenskeeper Supervisor Name Role Phone Alfonso Jin MD Primary Care Provider Anand Echevarria MD Primary Care Provider [phone] Kirti Landry MD Unavailable Unavailable Cristal Terry PA-C Unavailable [phone] Cristal Terry PA-C Unavailable [phone] Encounter Details Date Type Department Care Team (Late st Contact Info) Description 09/19/2004 Office Visit-[facility] [address] [place] [address] Unknown, MD Jae Social History Tobacco Use Types Packs/Day Years Used Date Smoking Tobacco: Never Alcohol Use Standard Drinks/Week Comments No 0 (1 standard drink = 0.6 oz pur e alcohol) Comments No Sex and Gender Information Value Date Recorded Sex Assigned at Female 08/06/2023 3:22 PM CDT Legal Sex Female 4:24 AM PLUMBING ENGINEER Gender Identity Female 08/06/2023 3:22 PM CDT [...] old Referring Physician: ALFONSO JIN Referring Clinic: [facility] [place]NOTE 2] CURRENT DIAGNOSES 1. - Arrhythmia, 427.9 2. [...] Jina Greene, in follow up at the [facility] on September 19, 2004. I [...] to time, person and place. IMPRESSIONS/PLAN </B><FONT FACE=Paper Deliverer New> Jina Greene is a 59-year-old woman [...] ORDERS 1. F/U with Hossein Echevarria MD [facility] 2. Event Recorder Today Shawna Mayes M.D. documented in this encounter Plan of Treatment Upcoming Encounters Date Type Department Care Team (Late st Contact Info) Description 01/05/2025 9:45 AM PLUMBING ENGINEER Lab [facility] [address] [place] [address] [address] [place] [address] 01/07/2025 7:45 AM PLUMBING ENGINEER Office Visit [address] [place] [phone] Will Awad MD [address] [facility] [address] [place], [place] [address] documented as of this encounter Visit Diagnoses Not on filedocumented in this encounter Care Teams Greenskeeper Supervisor Relationship Specialty Start Date End Date Alfonso Jin MD [address] [place] [address] [phone] PCP - General 09/09/03 01/09/15 Anand Echevarria MD [address] [place] [address] [phone] PCP - General Family Practice 01/10/15 Kirti Landry MD Assigned Heart and Vascular Provider 09/02/20 01/11/23 Cristal Terry PA-C [address] [place] [id number] Physician Assembler Small Products Cardiovascular Disease 05/10/23 Cristal Terry PA-C [address] [place] [id number] Assigned Heart and Vascular Provider 08/24/23 documented as of this encounter
--- OUTSIDE RECORDS SUMMARY | 2024-10-07 11:05 | XMS_ITS | Encounter Summary ---
Author Organization [facility] Address [facility] [address] Care Team Providers Care Sheet Tailer Name Role Phone Chelsea Rudolph MD Primary Care Provider Anand Villarreal MD Primary Care Provider Kirti Landry MD Unavailable Unavailable Cristal Terry PA-C Unavailable [phone] Cristal Terry PA-C Unavailable Encounter Details Date Type Department Care Team (Late st Contact Info) Description 01/29/2013 Office Visit-[facility] [address] [place] [address] Clarice De Leon, ELECTRICIAN SUPERVISOR AIRPLANE MULTIFOCAL LENS ASSEMBLER [address] [facility] [address] [place] [address] Social History Tobacco Use Types Packs/Day Years Used Date Smoking Tobacco: Never Alcohol Use Standard Drinks/Week Comments No 0 (1 standard drink = 0.6 oz pur e alcohol) Comments No Sex and Gender Information Value Date Recorded Sex Assigned at Female 08/06/2023 3:22 PM CDT Legal Sex Female 4:24 AM WASTE MANAGEMENT SPECIALIST Gender Identity Female 08/06/2023 3:22 PM [...] Created by: Clarice Nuñez N.P. DATE: 01/29/2013 #[id number] JINA GREENE DATE OF : 1945 AGE: [age] years old Referring Physician: ANAND VILLARREAL Referring Clinic: [facility] CURRENT [...] 200 mg capsule, 1 p.o. daily 4. Jdmomqdlgvl-Zmtqqqcpncb-STH 500-500-66.7 mg tablet, 2 p.o. daily 5. [...] mg capsule, 1 p.o. daily, #0 (Zero) Zxknyovglun-Hcvtgmaloui-HNN 500-500-66.7 mg tablet, 2 p.o. daily, #0 [...] st Contact Info) Description 01/05/2025 9:45 AM WASTE MANAGEMENT SPECIALIST Lab [address] [place] [address] 01/07/2025 7:45 AM WASTE MANAGEMENT SPECIALIST Office Visit [address] [place] [phone] Will Awad MD [address] [facility] [address] [place], [place] [address] documented as of this encounter Visit Diagnoses Not on filedocumented in this encounter Care Teams Sheet Tailer Relationship Specialty [place] [address] [place] [address] [phone] PCP - General 09/09/03 01/09/15 [place] [address] [place] [address] [phone] PCP - General Family Practice 01/10/15 Kirti Landry MD Assigned Heart and Vascular Provider 09/02/20 01/11/23 Cristal Terry PA-C [address] [place] [address] Physician Relocation Associate Cardiovascular Disease 05/10/23 Cristal Terry PA-C [address] [place] [address] Assigned Heart and Vascular Provider 08/24/23 documented as of this encounter
--- OUTSIDE RECORDS SUMMARY | 2024-10-07 11:05 | XMS_ITS | Encounter Summary ---
Author Organization [facility] Address [address] [place] [address]. [place] [address] Care Team Providers Care Multimedia Authoring Specialist Name Role Phone Alfonso Jin MD Primary Care Provider Anand Echevarria MD Primary Care Provider [phone] Kirti Landry MD Unavailable Unavailable Cristal Terry PA-C Unavailable [phone] Cristal Terry PA-C Unavailable [phone] Encounter Details Date Type Department Care Team (Late st Contact Info) Description 12/05/2004 Office Visit-[facility] [address] [place] [address] Unknown, MD Jae Social History Tobacco Use Types Packs/Day Years Used Date Smoking Tobacco: Never Alcohol Use Standard Drinks/Week Comments No 0 (1 standard drink = 0.6 oz pur e alcohol) Comments No Sex and Gender Information Value Date Recorded Sex Assigned at Female 08/06/2023 3:22 PM CDT Legal Sex Female 4:24 AM SUPERVISOR SOAKERS Gender Identity Female 08/06/2023 3:22 PM CDT [...] Referring Physician: ALFONSO JIN [facility] CURRENT DIAGNOSES 1. - Atrial Fibrillation, 427.31 [...] Aspirin 325 mg, PO QD IMPRESSIONS/PLAN <FONT FACE=Film Sound Coordinator New>Her electrocardiogram from today shows normal sinus [...] Contact Info) Description 01/05/2025 9:45 AM SUPERVISOR SOAKERS Lab [facility] [address] [place] [address] [place] [address] 01/07/2025 7:45 AM SUPERVISOR SOAKERS Office Visit [facility] [address] [place] [address] Will Awad MD [address] [place], [place] [address] documented as of this encounter Visit Diagnoses Not on filedocumented in this encounter Care Teams Multimedia Authoring Specialist Relationship Specialty Start Date End Date Alfonso Jin MD [address] [place] [address] [phone] PCP - General 09/09/03 01/09/15 Anand Echevarria MD [address] [place] [address] PCP - General Family Practice 01/10/15 Kirti Landry MD Assigned Heart and Vascular Provider 09/02/20 01/11/23 Cristal Terry PA-C [address] [place] [address] Physician Plastics Fabrication Supervisor Cardiovascular Disease 05/10/23 Cristal Terry PA-C [address] [place] [address] Assigned Heart and Vascular Provider 08/24/23 documented as of this encounter
--- OUTSIDE RECORDS SUMMARY | 2024-10-07 11:05 | XMS_ITS | Encounter Summary ---
Author Organization [facility] Address [address] [place] [address]. [place] [address] Care Team Providers Care Branch Lending Manager Name Role Phone Anand Echevarria MD Primary Care Provider [phone] Kirti Landry MD Unavailable Unavailable Cristal Terry PA-C Unavailable [phone] Cristal Terry PA-C Unavailable [phone] Reason for Visit * Reason Onset Date Comments Clinic Care Coordination - Follow-up 05/15/2018 flecainide Encounter Details Date Type Department Care Team (Latest Contact Info) Description 05/15/2018 MyC Medical Advice [facility] [address] [phone] Kirti Landry MD Clinic Care Coordination - Follow-up (fle... Social History Tobacco Use Types Packs/Day Years Used Date Smoking Tobacco: Never Smokeless Tobacco: Never Alcohol Use Standard Drinks/Week Comments No 0 (1 standard drink = 0.6 oz pur e alcohol) Comments No Sex and Gender Information Value Date Recorded Sex Assigned at Female 08/06/2023 3:22 PM CDT Legal Sex Female 4:24 AM DESTINATION SPECIALIST Gender Identity Female 08/06/2023 3:22 PM [...] st Contact Info) Description 01/05/2025 9:45 AM DESTINATION SPECIALIST Lab [address] [phone] 01/07/2025 7:45 AM DESTINATION SPECIALIST Office Visit [address] [place] [address] Will Awad MD [address] [place] [address] documented as of this encounter Visit Diagnoses Not on filedocumented in this encounter Care Teams Branch Lending Manager Relationship Specialty Start Date End Date Anand Echevarria MD PCP - General Family Practice 01/10/15 Kirti Landry MD Assigned Heart and Vascular Provider 09/02/20 01/11/23 Cristal Terry PA-C [address] [place] [address] Physician Manager Plumbing Cardiovascular Disease 05/10/23 Cristal Terry PA-C [address] [place] [address] Assigned Heart and Vascular Provider 08/24/23 documented as of this encounter
--- OUTSIDE RECORDS SUMMARY | 2024-10-07 11:05 | XMS_ITS | Encounter Summary ---
Author Organization [place] Address [address] [place] [address]. [place] [address] Care Team Providers Care Head Grower Name Role Phone Alfonso Jin MD Primary Care Provider Anand Echevarria MD Primary Care Provider [phone] Kirti Landry MD Unavailable Unavailable Cristal Terry PA-C Unavailable [phone] Cristal Terry PA-C Unavailable [phone] Encounter Details Date Type Department Care Team (Late st Contact Info) Description 09/26/2004 Office Visit-[facility] [address] [place] [address] Unknown, MD Jae Social History Tobacco Use Types Packs/Day Years Used Date Smoking Tobacco: Never Alcohol Use Standard Drinks/Week Comments No 0 (1 standard drink = 0.6 oz pur e alcohol) Comments No Sex and Gender Information Value Date Recorded Sex Assigned at Female 08/06/2023 3:22 PM CDT Legal Sex Female 4:24 AM MANAGER CHEMICAL Gender Identity Female 08/06/2023 3:22 PM CDT [...] old Referring Physician: ALFONSO JIN Referring Clinic: [facility] CURRENT DIAGNOSES 1. - Arrhythmia, 427.9 2. [...] However, this is not documented in the [employer] system. Mrs. Greene does not have any [...] and place. MEDICATIONS UPDATED TODAY: IMPRESSIONS/PLAN </B><FONT FACE=Project Reservoir Engineer New> This is a very pleasant 59-year-old [...] st Contact Info) Description 01/05/2025 9:45 AM MANAGER CHEMICAL Lab [address] [place] [address] 01/07/2025 7:45 AM MANAGER CHEMICAL Office Visit [address] [place] [phone] Will Awad MD [address] [place] [address] documented as of this encounter Visit Diagnoses Not on filedocumented in this encounter Care Teams Head Grower Relationship Specialty Start Date End Date Alfonso Jin MD [address] [place] [address] [phone] PCP - General 09/09/03 01/09/15 Anand Echevarria MD [address] [place] [address] [phone] PCP - General Family Practice 01/10/15 Kirti Landry MD Assigned Heart and Vascular Provider 09/02/20 01/11/23 Cristal Terry PA-C [address] [place] [address] Physician Multimedia Services Coordinator Cardiovascular Disease 05/10/23 Cristal Terry PA-C [address] [place] [address] Assigned Heart and Vascular Provider 08/24/23 documented as of this encounter
--- OUTSIDE RECORDS SUMMARY | 2024-10-07 11:05 | XMS_ITS | Encounter Summary ---
Author Organization [place] Address [address] [place] [address]. [place] [address] Care Team Providers Care Dial Painter Name Role Phone Alfonso Jin MD Primary Care Provider Anand Echevarria MD Primary Care Provider Kirti Landry MD Unavailable Unavailable Cristal Terry PA-C Unavailable [phone] Cristal Terry PA-C Unavailable [phone] Encounter Details Date Type Department Care Team (Late st Contact Info) Description 08/08/2004 Office Visit-[facility] [address] [place] [address] Unknown, MD Jae Social History Tobacco Use Types Packs/Day Years Used Date Smoking Tobacco: Never Alcohol Use Standard Drinks/Week Comments No 0 (1 standard drink = 0.6 oz pur e alcohol) Comments No Sex and Gender Information Value Date Recorded Sex Assigned at Female 08/06/2023 3:22 PM CDT Legal Sex Female 4:24 AM COMPUTER TECHNICIAN Gender Identity Female 08/06/2023 3:22 PM CDT [...] Referring Physician: ALFONSO JIN Referring Clinic: [facility] CURRENT DIAGNOSES 1. - Shortness of Breath, 786.05 2. - Hypercholesterolemia, 272.0 3. - Tachycardia, 785.0 ALLERGIES NKA MEDICATIONS (including any changes made today) 1. Lipitor 10 mg, 1 p.o. q.d. 2. Premarin 0.3 mg, 1 p.o. q.d. CHIEF COMPLAINTS Referred by pmd HISTORY OF PRESENT ILLNESS I had the pleasure of seeing your patient, Jina Greene, at the [facility] in consultation today. As you [...] [facility]. She [...] diet; Exercise - some exercise; Occupation - [employer] and spends majority of time volunteering; Residence [...] hours, which prompted her to go to [facility]. The patient has never [...] Return Visit 3 weeks Shawna Mayes M.D. documented in this encounter Plan of Treatment Upcoming Encounters Date Type Department Care Team (Late st Contact Info) Description 01/05/2025 9:45 AM COMPUTER TECHNICIAN Lab [facility] [address] [place] [address] [address] [place] [phone] 01/07/2025 7:45 AM COMPUTER TECHNICIAN Office Visit [address] [phone] Will Awad MD [address] [place], [place] [address] documented as of this encounter Visit Diagnoses Not on filedocumented in this encounter Care Teams Dial Painter Relationship Specialty Start Date End Date Alfonso Jin MD [address] [place] [address] [phone] PCP - General 09/09/03 01/09/15 Anand Echevarria MD [address] [place] [address] PCP - General Family Practice 01/10/15 Kirti Landry MD Assigned Heart and Vascular Provider 09/02/20 01/11/23 Cristal Terry PA-C [address] [place] [id number] Physician Doctor Of Naprapathic Medicine Cardiovascular Disease 05/10/23 Cristal Terry PA-C [address] [place] [id number] Assigned Heart and Vascular Provider 08/24/23 documented as of this encounter
--- OUTSIDE RECORDS SUMMARY | 2024-10-07 11:05 | XMS_ITS | Encounter Summary ---
Author Organization [place] Address [address] [place] [address]. [place] [address] Care Team Providers Care Supervisor Winding Department Name Role Phone Chelsea Rudolph MD Primary Care Provider Anand Villarreal MD Primary Care Provider Kirti Landry MD Unavailable Unavailable Cristal Terry PA-C Unavailable [phone] Cristal Terry PA-C Unavailable [phone] Encounter Details Date Type Department Care Team (Late st Contact Info) Description 01/27/2009 Office Visit-[facility] [address] [place] [phone] Kirti Landry MD Social History Tobacco Use Types Packs/Day Years Used Date Smoking Tobacco: Never Alcohol Use Standard Drinks/Week Comments No 0 (1 standard drink = 0.6 oz pur e alcohol) Comments No Sex and Gender Information Value Date Recorded Sex Assigned at Female 08/06/2023 3:22 PM CDT Legal Sex Female 4:24 AM BREASTFEEDING PEER COUNSELOR Gender Identity Female 08/06/2023 3:22 PM CDT [...] - ; Exercise - some exercise; Occupation -[employer] and spends majority of time volunteering; Residence [...] st Contact Info) Description 01/05/2025 9:45 AM BREASTFEEDING PEER COUNSELOR Lab [address] [place] [phone] 01/07/2025 7:45 AM BREASTFEEDING PEER COUNSELOR Office Visit [address] [place] [phone] Will Awad MD [address] [place] [phone] documented as of this encounter Visit Diagnoses Not on filedocumented in this encounter Care Teams Supervisor Winding Department Relationship Specialty Start Date End Date Chelsea Rudolph MD [address] [place] [address] [phone] PCP - General 09/09/03 01/09/15 Anand Villarreal MD [address] [place] [address] [phone] PCP - General Family Practice 01/10/15 Kirti Landry MD Assigned Heart and Vascular Provider 09/02/20 01/11/23 Cristal Terry PA-C [address] [place] [id number] Physician Proprietary Trader Cardiovascular Disease 05/10/23 Cristal Terry PA-C [address] [place] [id number] Assigned Heart and Vascular Provider 08/24/23 documented as of this encounter
--- OUTSIDE RECORDS SUMMARY | 2024-10-07 11:05 | XMS_ITS | Encounter Summary ---
Author Organization [place] Address [facility] [place] [place] [address] Care Team Providers Care Director Music Name Role Phone Chelsea Rudolph MD Primary Care Provider Anand Villarreal MD Primary Care Provider Kirti Landry MD Unavailable Unavailable Cristal Terry PA-C Unavailable [phone] Cristal Terry PA-C Unavailable Encounter Details Date Type Department Care Team (Late st Contact Info) Description 01/10/2011 Office Visit-[facility] [address] [place] [phone] Clarice De Leon, [address] [employer] SWEEPER OPERATOR [phone] [facility] [address] [place] [phone] Social History Tobacco Use Types Packs/Day Years Used Date Smoking Tobacco: Never Alcohol Use Standard Drinks/Week Comments No 0 (1 standard drink = 0.6 oz pur e alcohol) Comments No Sex and Gender Information Value Date Recorded Sex Assigned at Female 08/06/2023 3:22 PM CDT Legal Sex Female 4:24 AM CHEMICAL DEPENDENCY COUNSELOR Gender Identity Female 08/06/2023 3:22 PM [...] Created by: Clarice Nuñez N.P. DATE: 01/10/2011 #[id number] JINA GREENE DATE OF : 1945 AGE: [age] years old Referring Physician: ANAND VILLARREAL Referring Clinic: [facility] CURRENT DIAGNOSES 1. - Ventricular tachycardia, [...] st Contact Info) Description 01/05/2025 9:45 AM CHEMICAL DEPENDENCY COUNSELOR Lab [address] [place] [phone] 01/07/2025 7:45 AM CHEMICAL DEPENDENCY COUNSELOR Office Visit [address] [place] [phone] Will Awad MD [address] [facility] [address] [place], [place] [phone] documented as of this encounter Visit Diagnoses Not on filedocumented in this encounter Care Teams Director Music Relationship Specialty Start Date End Date Chelsea Rudolph MD [address] [place] [id number] PCP - General 09/09/03 01/09/15 Anand Villarreal MD [address] [place] [id number] PCP - General Family Practice 01/10/15 Kirti Landry MD Assigned Heart and Vascular Provider 09/02/20 01/11/23 Cristal Terry PA-C [address] [place] [id number] Physician International Specialist Cardiovascular Disease 05/10/23 Cristal Terry PA-C [address] [place] [id number] Assigned Heart and Vascular Provider 08/24/23 documented as of this encounter
--- OUTSIDE RECORDS SUMMARY | 2024-10-07 11:05 | XMS_ITS | Encounter Summary ---
Author Organization [place] Address [address] [place] [address]. [place] [address] Care Team Providers Care Press Tender Star Signal Name Role Phone Chelsea Rudolph MD Primary Care Provider Anand Echevarria MD Primary Care Provider Kirti Landry MD Unavailable Unavailable Cristal Terry PA-C Unavailable [phone] Cristal Terry PA-C Unavailable [phone] Encounter Details Date Type Department Care Team (Late st Contact Info) Description 11/07/2007 Office Visit-[facility] [address] [place] [phone] Kirti Landry MD Social History Tobacco Use Types Packs/Day Years Used Date Smoking Tobacco: Never Alcohol Use Standard Drinks/Week Comments No 0 (1 standard drink = 0.6 oz pur e alcohol) Comments No Sex and Gender Information Value Date Recorded Sex Assigned at Female 08/06/2023 3:22 PM CDT Legal Sex Female 4:24 AM COURIER DRIVER Gender Identity Female 08/06/2023 3:22 PM [...] st Contact Info) Description 01/05/2025 9:45 AM COURIER DRIVER Lab [facility] [id number] [place] [address] [address] [place] [phone] 01/07/2025 7:45 AM COURIER DRIVER Office Visit [address] [place] [address] Will Awad MD [address] [place] [address] documented as of this encounter Visit Diagnoses Not on filedocumented in this encounter Care Teams Press Tender Star Signal Relationship Specialty [place] [address] [place] [address] [phone] PCP - General 09/09/03 01/09/15 Anand Echevarria MD [address] [place] [address] [id number] PCP - General Family Practice 01/10/15 Kirti Landry MD Assigned Heart and Vascular Provider 09/02/20 01/11/23 Cristal Terry PA-C [address] [place] [id number] Physician Button Maker Cardiovascular Disease 05/10/23 Cristal Terry PA-C [address] [place] [id number] Assigned Heart and Vascular Provider 08/24/23 documented as of this encounter
--- NOTE | 2024-10-07 11:15 | CRLHL7_ITS ---
For Patients: As a result of the Century Cures Act, medical imaging exams and procedure reports are released immediately into your electronic medical record. You may view this report before your referring provider. If you have questions, please contact your health care provider. Technique: Double-contrast esophagram performed after the uneventful administration of effervescent crystals and thick barium. Fluoroscopy time 1 minute 36 seconds. Indication: Dysphagia Comparison: CT neck 09/22/2024 Findings: Calcified right thyroid lobe nodule again noted. Numerous tertiary contractions are present throughout the mid and distal esophagus. No stricture. A small sliding hiatal hernia is present. There is delayed esophageal motility. No aspiration. Spontaneous reflux not visualized during the exam. Impression: No aspiration. Reflux esophagitis noted. Decreased esophageal motility. Dictated by Nic Taylor MD @ 10/07/2024 12:38:48 PM (Electronically Signed)
== END 2024-10-07 11:03 | disposition home or self-care (01) ==
LOC: RAD 11:03
PROVIDERS: PCP Family Medicine; Visit Provider Otolaryngology
DX: R13.10 Dysphagia, unspecified (principal)
CPT/HCPCS: 74221

== ENCOUNTER 2024-10-16 09:57 | Outpatient (CLI) | payer MEDICARE, BC, SELFPAY ==
--- NOTE | 2024-10-16 10:15 | CRLHL7_ITS ---
For Patients: As a result of the Cures Act, medical imaging exams and procedure reports are released immediately into your electronic medical record. You may view this report before your referring provider. If you have questions, please contact your health care provider. INDICATION: Thyroid nodule COMPARISON: CT neck 09/22/2024 TECHNIQUE: Kumar scale and color Doppler images were acquired of the thyroid gland. FINDINGS: Isthmus measures 2.5 millimeters. Heterogeneously hypoechoic nodule within the inferior pole left thyroid lobe measures 1.8 x 1.0 x 1.8 cm, TR 4. Solid and cystic nodule midportion left thyroid lobe measures 8 x 6 x 9 millimeters, TR 3. Solid nodule upper pole left thyroid lobe measures 1.7 x 0.9 x 1.1 cm, TR 4. Solid nodule right thyroid lobe inferior pole measures 1.0 x 0.9 x 1.1 cm, TR 4. Additional solid nodule right thyroid lobe inferior pole measures 1.0 x 0.7 x 1.0 cm. Densely calcified nodule right thyroid lobe measures 1.0 x 0.7 x 1.0 cm. The right lobe measures 5.7 x 1.9 x 1.9 cm and the left lobe measures 5.2 x 1.5 x 1.3 cm in size. The color Doppler images demonstrate normal vascularity. There is no evidence of cervical lymphadenopathy or parathyroid mass. IMPRESSION: Bilateral thyroid nodules. Dictated by Nic Taylor MD @ 10/17/2024 6:15:35 PM (Electronically Signed)
== END 2024-10-16 09:58 | disposition home or self-care (01) ==
LOC: US 09:57
PROVIDERS: PCP Family Medicine; Visit Provider Otolaryngology
DX: E04.1 Nontoxic single thyroid nodule (principal)
CPT/HCPCS: 76536

== ENCOUNTER 2024-11-10 08:55 | Outpatient (CLI) | payer MEDICARE, BC, SELFPAY ==
--- NOTE | 2024-11-10 09:15 | CRLHL7_ITS ---
For Patients: As a result of the Century Cures Act, medical imaging exams and procedure reports are released immediately into your electronic medical record. You may view this report before your referring provider. If you have questions, please contact your health care provider. INDICATION : Left-sided TR 4 nodules TECHNIQUE : Ultrasound-guided fine needle aspiration of thyroid nodule x2. Note that right-sided nodules are less than 1.5 cm and do not meet criteria for biopsy at this time. COMPARISON : Ultrasound 10/16/2024, CT 09/22/2024 FINDINGS : PROCEDURE: After the informed consent and time-out, multiple fine needle aspirations were obtained from the thyroid nodule. Each biopsy obtained using similar technique. Fine needle performed. 25 gauge needles were used. Lidocaine was used for local anesthesia. The preliminary cytology was adequate for interpretation. Real-time imaging was used for guidance and needle placement. Post imaging ultrasound demonstrates no immediate complication. IMPRESSION : Successful fine needle aspiration of 2 left-sided TR 4 nodules. Dictated by Nic Taylor MD @ 11/10/2024 11:28:16 AM (Electronically Signed)
== END 2024-11-10 08:56 | disposition home or self-care (01) ==
LOC: US 08:56
PROVIDERS: PCP Family Medicine; Visit Provider Surgery
DX: E04.1 Nontoxic single thyroid nodule (principal); J38.00 Paralysis of vocal cords and larynx, unspecified
CPT/HCPCS: 10005; 10006; 88173; J2003

== ENCOUNTER 2024-12-21 10:51 | Outpatient (CLI) | payer MEDICARE, BC, SELFPAY | END 2024-12-21 10:52 | disposition home or self-care (01) | PROVIDERS: PCP Family Medicine; Visit Provider Family Medicine | DX: I10 Essential (primary) hypertension (principal); E78.5 Hyperlipidemia, unspecified; R53.83 Other fatigue; E04.1 Nontoxic single thyroid nodule; Z13.21 Encounter for screening for nutritional disorder | CPT/HCPCS: 80048; 80061; 82607; 84439; 84443 ==

== ENCOUNTER 2025-05-18 10:31 | Outpatient (CLI) | payer MEDICARE, BC, SELFPAY ==
--- NOTE | 2025-05-18 10:45 | CRLHL7_ITS ---
For Patients: As a result of the Century Cures Act, medical imaging exams and procedure reports are released immediately into your electronic medical record. You may view this report before your referring provider. If you have questions, please contact your health care provider. INDICATION: Thyroid nodule COMPARISON: 11/10/2024, 10/16/2024 TECHNIQUE: Kumar scale and color Doppler images were acquired of the thyroid gland. FINDINGS: Solid hypoechoic nodule left thyroid lobe measures 1.8 x 1.0 x 1.7 cm, previously measuring 1.7 cm, TR 4. Solid and cystic nodule left thyroid lobe measures 9 x 6 x 8 millimeters, TR 3, previously measuring 9 millimeters. Solid and cystic nodule left thyroid lobe measures 1.8 x 1.0 x 1.8 cm, previously measuring 1.8 cm, TR 3. Mostly solid nodule right thyroid lobe measures 1.5 x 1.0 x 1.3 cm, TR 4, previously measuring 1.1 cm. Similar nodule right thyroid lobe measures 10 x 7 x 10 millimeters, previously measuring 10 millimeters, TR 4. Calcified nodule right thyroid lobe measures 10 x 7 x 10 millimeters, previously measuring 10 millimeters. The right lobe measures 5.7 x 1.2 x 1.8 cm and the left lobe measures 5.3 x 1.7 x 1.6 cm in size. The color Doppler images demonstrate normal vascularity. There is no evidence of cervical lymphadenopathy or parathyroid mass. IMPRESSION: Similar bilateral thyroid nodules. Dictated by Nic Taylor MD @ 05/18/2025 1:12:42 PM (Electronically Signed)
== END 2025-05-18 10:32 | disposition home or self-care (01) ==
LOC: US 10:33
PROVIDERS: PCP Family Medicine; Visit Provider Surgery
DX: E04.1 Nontoxic single thyroid nodule (principal)
CPT/HCPCS: 76536

== ENCOUNTER 2025-06-11 09:00 | Outpatient (RCR) | payer MEDICARE, BC, SELFPAY ==
--- NOTE | 2025-05-19 11:31 | PT.OPEX ---
PT [place] Outpatient Eval PT [facility] Outpatient Eval Start: 05/19/25 09:54 Freq: Status: Active Protocol: Document 05/19/25 09:54 JESSICA (Rec: 05/19/25 11:31 JESSICA [id number]) E-signed By Betty Blanco PT Physical Therapy Outpatient Evaluation Insurance Information Recert Due Date 08/16/25 Insurance Name Medicare B Medical Diagnosis LEFT ABDUCTOR TENDONITIS Treating Diagnosis LEFT HIP PAIN LEFT HIP WEAKNESS ANTALGIC GAIT Imaging Report XRAY 04/15/25:. Information -AP Pelvis was obtained today from [facility], was ordered and reviewed by me, and shows mild osteoarthrosis bilateral hips with relative symmetry. Only small osteophytosis. No acute fractures or avulsions. No signs of AVN. -Weightbearing AP, Lateral and [place] views of the left knee were obtained today from [facility], were ordered and reviewed by me, and show moderate- severe osteoarthrosis with 80+% joint space narrowing seen best on lateral radiograph. Subchondral sclerosis and even subchondral cystic change medial and lateral tibial femoral compartments. Tricompartmental osteophytosis. Arteriosclerosis of the femoral and popliteal arteries noted. Referring MD ODELL Subjective Preferred Name CARMINA Subjective CARMINA INITIALLY WENT TO DR. ODELL FOR SIGNIFICANT PAIN IN HER LEFT HIP THAT INCREASED WITH STAIRS, AMB IN HER GARDEN AND COMMUNITY DISTANCE WELL AFTER SITTING FOR >15MINUTES. 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 TODAY, SHE REPORTS NO PAIN IN HER LEFT HIP STATING, IT JUST WENT AWAY. I DIDN'T REALLY DO MUCH OF ANYTHING DIFFERENT. SHE IS INTERESTED IN LEARNING HOW TO STRENGTHEN THE HIP AND LEG MUSCLES SO THAT SHE CAN BETTER MANAGE HER AGING BODY. Pain Comments 0/10 POINT TENDER LEFT>RIGHT GLUT MED Date of Last 04/15/25 Physician Visit Current Work Status Retired Precautions Treatment PMHX INCLUDES CERVICAL DDD, ACROMIAL FRACTURE FOLLOWING Precautions/ LEFT SHOULDER TSA (12/04), OA LEFT KNEE, [place] W/AIDES, Contraindications HTN, HLD, AFIB, POLYNEUROPATHY (BLE), CERVICAL DDD; Therapy Limitations/ Hearing Systems Review Objective Functional Test KLZEKYVE Performed & Score HOOS-12 Score: 60.4 / 100 = 60.4 % (Pain Score: 56.3; Function Score: 62.5; Quality of Life Score: 62.5) Assessment Assessment/ PATIENT IS AN [address] REZA FOR LEFT Impression HIP TROCHANTERIC BURSITIS ; PMHX INCLUDES CERVICAL DDD, ACROMIAL FRACTURE FOLLOWING LEFT SHOULDER TSA (12/04), OA LEFT KNEE, [place] W/AIDES, HTN, HLD, AFIB, POLYNEUROPATHY (BLE), CERVICAL DDD; PATIENT REPORTS A 1 .5 H/O HIP PAIN WHEN SEEING THE DOCTOR ~4WEEKS AGO BUT NOW, HER SYMPTOMS HAVE ALL BUT RESOLVED. SHE INITIALLY HAD PAIN WITH STAIRS, SQUATTING, COMMUNITY AMB AND AMB ON UNEVEN SURFACES. TODAY, SHE DEMONSTRATE LEFT>RIGHT MILD POINT TENDERNESS ABOUT THE GLUT MED AND SUPERIOR GREATER TROCHANTER, (-)FADIR/GUANAKO, (-)LOG ROLL, (-) SLR (-) SCOUR (-)[place]; MMT 5/5 X 4/5 HIP FLEX /EXT; WHICH ALL ARE CONTRIBUTING TO THE CLINICAL IMPRESSION CONSISTENT WITH TROCHANTERIC BURSITIS. PATIENT IS A GOOD CANDIDATE FOR SKILLED PHYSICAL THERAPY TO ADDRESS AFOREMENTIONED DEFICITS ABOVE IN ORDER TO RETURN TO ASYMPTOMATIC STATUS AND RETURN TO UNRESTRICTED MVMTS. INTERVENTION IS NECESSARY BY WAY OF THERAPEUTIC EXERCISE, MANUAL THERAPY, NEUROMUSCULAR RE -EDUCATION, STABILIZATION/PROPRIOCEPTION, MODALITIES FOR SYMPTOM MGMT, PATIENT EDUCATION, DRY NEEDLING PLEASE REFER TO APPROPRIATE SECTION WITHIN THIS EVALUATION FOR COMPLETE LIST OF GOALS AND PLAN OF CARE. DISCHARGE PLAN AND CRITERIA IS FOR PATIENT TO ACHIEVE THE GOALS LISTED BELOW OR UNTIL MAX POTENTIAL MET. PATIENT VERBALIZED UNDERSTANDING AND AGREEABLE TO POC, FREQ, AND GOALS ESTABLISHED. Primary Functional COMMUNITY AMB Limitations STAIRS SQUATING Plan of Care Rehabilitation Good Potential Physical Therapy 1. DECREASE LEFT HIP/THIGH PAIN TO </3/10 WITH DAILY Goals ACTIVITIES AND WITH THE PROGRESSION OF PHYSICAL THERAPY PROGRAM OVER THE NEXT 3-4 WEEKS 2. IMPROVE LEFT HIP ROM TO WFL OVER THE NEXT 4-6 WEEKS FOR IMPROVED GAIT MECHANICS, RETURN TO TRANSFERS W/O ASSISTANCE AND WITH EASE, AND RETURN TO ASCENDING/ DESCENDING STAIRS WITH RECIPROCAL GAIT 3. IMPROVE CORE/LE COMPLEX STRENGTH OVER THE NEXT 6-8 WEEKS FOR RETURN TO TRANSFERS WITH EASE, NORMAL GAIT WITHOUT AD, AND STANDING/WALKING >15MIN WITHOUT A FLARE UP OF PAIN 4. PATIENT WILL BE INDEPENDENT WITH HER INDIVIDUALIZED AND COMPREHENSIVE HEP WITHIN 8-12 WEEKS FOR PROGRESSION TOWARD ABOVE GOALS, ONGOING IMPROVEMENT OF PAIN/SYMPTOMS, ROM, STRENGTH, AND MOBILITY TO RETURN TO DAILY ACTIVITIES AND FAMILY CENTERED ACTIVITIES W/O FLARE UP OF PAIN/SYMPTOMS Coordination/ Referral Source Communication With Treatment Plan/ Dry Needling,Electrical Stimulation,Gait Training,Ice/ Direct Interventions Cold/Vasopneumatic,Joint Mobilization,Manual Therapy, Neuromuscular Re-ed,Self-Care/Home Management, Therapeutic Activities,Therapeutic Exercises,Ultrasound Frequency/Duration 1XWK Patient Will Be Completion of LTG(s),Independent w/HEP Discharged From Therapy Evaluation Billing Untimed Code 25 Treatment Minutes PT Eval No Charge No Complexity Low Certification Information Initial 05/19/25 Certification Date Ending Certification 08/16/25 Date Provider Signature Yes Required Provider Signature POC & Medical Necessity Shows Agreement With Physician NPI Number Write NPI# Here Physician Comment/ : Change Physician Signature Please Sign/Date Here & Date Requested
== END 2025-07-19 11:22 | disposition home or self-care (01) ==
PROVIDERS: PCP Family Medicine; Visit Provider Orthopaedic Surgery Sports Medicine
DX: M76.892 Other specified enthesopathies of left lower limb, excluding foot (principal); M70.62 Trochanteric bursitis, left hip; Z51.89 Encounter for other specified aftercare
CPT/HCPCS: 97110; 97161

== ENCOUNTER 2025-06-17 15:02 | Outpatient (CLI) | payer MEDICARE, BC, SELFPAY ==
--- NOTE | 2025-06-17 15:20 | CRLHL7_ITS ---
For Patients: As a result of the Century Cures Act, medical imaging exams and procedure reports are released immediately into your electronic medical record. You may view this report before your referring provider. If you have questions, please contact your health care provider. INDICATION: BILATERAL SCREENING MAMMOGRAM, ASYMPTOMATIC 79 Y/O FEMALE COMPARISON: 04/22/2024, 05/23/2021, 05/17/2020 TECHNIQUE: Digital mammogram in CC and MLO projections including computer-aided detection (CAD) and tomosynthesis. BREAST COMPOSITION: There are scattered areas of fibroglandular density. FINDINGS: No suspicious findings. ASSESSMENT: BI-RADS 1 Negative RECOMMENDATION: Annual screening mammogram. A lay language report of this examination will be provided to the patient. Dictated by: Nic Taylor MD @ 06/18/2025 10:01:17 (Electronically Signed)
== END 2025-06-17 15:03 | disposition home or self-care (01) ==
LOC: MAMMO 15:03
PROVIDERS: PCP Family Medicine; Visit Provider Family Medicine
DX: Z12.31 Encounter for screening mammogram for malignant neoplasm of breast (principal)
CPT/HCPCS: 77063; 77067